=== PATIENT | female | born 1950 | race Caucasian/White ===

== ENCOUNTER → 2020-03-14 08:59 | Outpatient (BNVA) | payer MEDICARE, OTHER, SELFPAY | PROVIDERS: PCP Internal Medicine; Visit Provider Internal Medicine | DX: I48.0 Paroxysmal atrial fibrillation (principal); Z51.81 Encounter for therapeutic drug level monitoring; Z79.01 Long term (current) use of anticoagulants | CPT/HCPCS: 85610; 99211 ==

== ENCOUNTER 2020-03-27 06:57 | Outpatient (REF) | payer MEDICARE, OTHER, SELFPAY ==
[2020-03-27 11:43] LABS: Hematocrit 40.4 % (37-47); Hemoglobin 13.1 g/dl (12.0-16.0); Mean Corpuscular HGB Conc 32.4 g/dl (31.0-35.0); Mean Corpuscular Hemoglobin 28.7 pg (27.0-33.0); Mean Corpuscular Volume 88.4 fL (80-98); Mean Platelet Volume 11.5 fL (9.4-12.3); Platelet Count 249 X10*3/uL (160-400); Red Blood Count 4.57 X10*6/uL (4.20-5.50); Red Cell Distribution Width 13.6 % (11.0-16.0); White Blood Count 6.7 X10*3/uL (4.8-10.8)
[2020-03-27 12:26] LABS: Alanine Aminotransferase 13 U/L (0-31); Albumin Level 4.5 g/dL (3.5-5.0); Alkaline Phosphatase 71 U/L (39-117); Anion Gap 14 (12-20); Aspartate Amino Transferase 16 U/L (5-31); Bilirubin Total 0.7 mg/dL (0.0-1.0); Blood Urea Nitrogen 19 mg/dL (9-16); Calcium 8.8 mg/dL (8.4-10.2); Carbon Dioxide 29 mmol/L (22-29); Chloride 103 mmol/L (96-108); Estimated Glomerular Filt Rate > 60; Glucose Fasting 113 mg/dL (60-99); Iron 74 mcg/dL (30-160); Percent Iron Saturation 23 % (15-50); Potassium 4.2 mmol/l (3.3-5.1); Sodium 142 mmol/L (135-145); Total Iron Binding Capacity 316 mcg/dL (228-428); Unsaturated Iron Binding 242 ug/dL
[2020-03-27 17:46] LABS: Estimated Average Glucose 128 mg/dL; Hemoglobin A1c % 6.1 %
== END 2020-03-27 06:58 | disposition home or self-care (01) ==
LOC: HO.HMGCLDS 06:57
PROVIDERS: PCP Internal Medicine; Visit Provider Internal Medicine
DX: E78.2 Mixed hyperlipidemia (principal); I10 Essential (primary) hypertension; E11.9 Type 2 diabetes mellitus without complications
CPT/HCPCS: 36415; 80053; 83036; 83540; 85027

== ENCOUNTER → 2020-04-02 09:51 | Outpatient (BNVA) | payer MEDICARE, OTHER, SELFPAY | PROVIDERS: PCP Internal Medicine; Visit Provider Internal Medicine Cardiovascular Disease | DX: I25.10 Atherosclerotic heart disease of native coronary artery without angina pectoris (principal); I48.0 Paroxysmal atrial fibrillation; I10 Essential (primary) hypertension; Z79.01 Long term (current) use of anticoagulants; Z79.02 Long term (current) use of antithrombotics/antiplatelets; Z79.899 Other long term (current) drug therapy; Z95.5 Presence of coronary angioplasty implant and graft | CPT/HCPCS: 99212 ==

== ENCOUNTER → 2020-04-11 08:51 | Outpatient (BNVA) | payer MEDICARE, SELFPAY | PROVIDERS: PCP Internal Medicine; Visit Provider Internal Medicine | DX: I48.0 Paroxysmal atrial fibrillation (principal); Z51.81 Encounter for therapeutic drug level monitoring; Z79.01 Long term (current) use of anticoagulants | CPT/HCPCS: 85610; 99211 ==

== ENCOUNTER → 2020-05-09 08:58 | Outpatient (BNVA) | payer MEDICARE, SELFPAY | PROVIDERS: PCP Internal Medicine; Visit Provider Internal Medicine | DX: I48.0 Paroxysmal atrial fibrillation (principal); Z51.81 Encounter for therapeutic drug level monitoring; Z79.01 Long term (current) use of anticoagulants | CPT/HCPCS: 85610; 99211 ==

== ENCOUNTER → 2020-06-13 08:51 | Outpatient (BNVA) | payer OTHER, SELFPAY | PROVIDERS: PCP Internal Medicine; Visit Provider Internal Medicine | DX: I48.0 Paroxysmal atrial fibrillation (principal); Z51.81 Encounter for therapeutic drug level monitoring; Z79.01 Long term (current) use of anticoagulants | CPT/HCPCS: 85610; 99211 ==

== ENCOUNTER 2020-07-05 09:08 | Outpatient (REF) | payer MEDICARE, OTHER, SELFPAY | END 2020-07-05 09:09 | disposition home or self-care (01) | LOC: HO.LAB 09:08 | PROVIDERS: Visit Provider Internal Medicine | DX: Z20.822 Contact with and (suspected) exposure to COVID-19 (principal) | CPT/HCPCS: 36415; C9803; U0003; U0005 ==

== ENCOUNTER → 2020-07-11 08:48 | Outpatient (BNVA) | payer OTHER, SELFPAY | PROVIDERS: PCP Internal Medicine; Visit Provider Internal Medicine | DX: I48.0 Paroxysmal atrial fibrillation (principal); Z51.81 Encounter for therapeutic drug level monitoring; Z79.01 Long term (current) use of anticoagulants | CPT/HCPCS: 85610; 99211 ==

== ENCOUNTER → 2020-08-08 08:47 | Outpatient (BNVA) | payer MEDICARE, SELFPAY | PROVIDERS: PCP Internal Medicine; Visit Provider Internal Medicine | DX: I48.0 Paroxysmal atrial fibrillation (principal); Z51.81 Encounter for therapeutic drug level monitoring; Z79.01 Long term (current) use of anticoagulants | CPT/HCPCS: 85610; 99211 ==

== ENCOUNTER → 2020-08-29 08:54 | Outpatient (BNVA) | payer MEDICARE, SELFPAY | PROVIDERS: PCP Internal Medicine; Visit Provider Internal Medicine | DX: I48.0 Paroxysmal atrial fibrillation (principal); Z79.01 Long term (current) use of anticoagulants; Z51.81 Encounter for therapeutic drug level monitoring | CPT/HCPCS: 85610; 99211 ==

== ENCOUNTER → 2020-09-26 09:06 | Outpatient (BNVA) | payer MEDICARE, SELFPAY | PROVIDERS: PCP Internal Medicine; Visit Provider Internal Medicine | DX: I48.0 Paroxysmal atrial fibrillation (principal); Z79.01 Long term (current) use of anticoagulants; Z51.81 Encounter for therapeutic drug level monitoring | CPT/HCPCS: 85610; 99211 ==

== ENCOUNTER → 2020-10-08 08:45 | Outpatient (BNVA) | payer MEDICARE, SELFPAY | PROVIDERS: PCP Internal Medicine; Referring Provider Internal Medicine; Visit Provider Internal Medicine Cardiovascular Disease | DX: I25.10 Atherosclerotic heart disease of native coronary artery without angina pectoris (principal); I48.0 Paroxysmal atrial fibrillation; I10 Essential (primary) hypertension; R06.00 Dyspnea, unspecified | CPT/HCPCS: 93005; 99212 ==

== ENCOUNTER → 2020-10-10 08:55 | Outpatient (BNVA) | payer MEDICARE, SELFPAY | PROVIDERS: PCP Internal Medicine; Visit Provider Internal Medicine | DX: I48.0 Paroxysmal atrial fibrillation (principal); Z51.81 Encounter for therapeutic drug level monitoring; Z79.01 Long term (current) use of anticoagulants | CPT/HCPCS: 85610; 99211 ==

== ENCOUNTER → 2020-11-07 08:48 | Outpatient (BNVA) | payer MEDICARE, SELFPAY | PROVIDERS: PCP Internal Medicine; Visit Provider Internal Medicine | DX: I48.0 Paroxysmal atrial fibrillation (principal); Z51.81 Encounter for therapeutic drug level monitoring; Z79.01 Long term (current) use of anticoagulants | CPT/HCPCS: 85610; 99211 ==

== ENCOUNTER 2020-12-02 07:46 | Outpatient (REF) | payer MEDICARE, SELFPAY ==
[2020-12-02 11:46] LABS: Estimated Average Glucose 126 mg/dL
[2020-12-02 11:50] LABS: Alanine Aminotransferase 16 U/L (0-31); Albumin Level 4.2 g/dL (3.5-5.0); Alkaline Phosphatase 75 U/L (39-117); Anion Gap 13 (12-20); Aspartate Amino Transferase 15 U/L (5-31); Bilirubin Total 0.6 mg/dL (0.0-1.0); Blood Urea Nitrogen 20 mg/dL (9-16); Calcium 9.3 mg/dL (8.4-10.2); Carbon Dioxide 26 mmol/L (22-29); Chloride 107 mmol/L (96-108); Cholesterol 162 mg/dL; Estimated Glomerular Filt Rate > 60; Glucose Fasting 116 mg/dL (60-99); HDL Cholesterol 45 mg/dL; LDL Cholesterol Calculated 98 mg/dl; Potassium 4.2 mmol/L (3.3-5.1); Sodium 142 mmol/L (135-145); Total Protein 6.6 g/dL (6.5-8.0); Triglycerides 98 mg/dL
[2020-12-02 12:00] LABS: Creatinine Urine 101.86 mg/dL; Microalbum/Creatinine Ratio Ur 9.8 ug/mg cr
== END 2020-12-02 07:47 | disposition home or self-care (01) ==
LOC: HO.HMGCLDS 07:46
PROVIDERS: PCP Internal Medicine; Visit Provider Internal Medicine
DX: I10 Essential (primary) hypertension (principal); E11.9 Type 2 diabetes mellitus without complications; I25.10 Atherosclerotic heart disease of native coronary artery without angina pectoris
CPT/HCPCS: 36415; 80053; 80061; 82043; 83036

== ENCOUNTER → 2020-12-05 08:55 | Outpatient (BNVA) | payer MEDICARE, SELFPAY | PROVIDERS: PCP Internal Medicine; Visit Provider Internal Medicine | DX: I48.0 Paroxysmal atrial fibrillation (principal); Z51.81 Encounter for therapeutic drug level monitoring; Z79.01 Long term (current) use of anticoagulants | CPT/HCPCS: 85610; 99211 ==

== ENCOUNTER → 2020-12-15 07:44 | Outpatient (REF) | payer MEDICARE, SELFPAY ==
--- NOTE | ~2020-12-15 | NM_ITS ---
Exercise Myocardial perfusion study Indication: Atherosclerotic heart disease to evaluate for myocardial ischemia Technique: The patient was brought in for an exercise perfusion study on 12/15/2020. Patient performed exercise as per Twan protocol and was injected 25 mCi of sestamibi was given intravenously one target HR was achieved. Images were obtained using the SPECT gamma camera interlaced with the gating device. Images were obtained in supine position. Resting perfusion study was performed on 12/16/2020. Patient was administered 25 mCi of sestamibi intravenously at rest. Images were then obtained in supine position. Images obtained with and without CT attenuation. Total DLP 93 mGy-cm. Images were processed with the software and compared side to side in short axis, horizontal long axis and vertical long axis views. Findings: The stress perfusion study showed nonattenuated images show mildly reduced uptake in the apex of the LV myocardium. Attenuated corrected images also show mildly reduced uptake in the apex of the LV myocardium. The gated study shows normal LV systolic function with calculated LVEF of greater than 70 %. LV cavity is normal in size. The gated study shows normal systolic wall thickening and contraction of all segments. There is no transient ischemic dilation. Resting study shows no change in perfusion pattern compared to stress perfusion study. Gating at rest reveals normal systolic wall motion with ejection fraction at 69%. The findings are consistent with normal myocardial perfusion. NM/NM cardiolite stress test Impression: 1. Normal myocardial perfusion 2. Gated LVEF is 69% 3. Transient ischemic dilatation not present Stress EKG is nondiagnostic for ischemia
--- NOTE | 2020-12-15 07:50 | CA_ITS ---
Acquisition Time: 2020-12-15 07:57:34 Total Exercise Time: 00:06:35 Test Indications: SOB Medications: SEE CHART Protocol: DONNA Max HR: 131 BPM 87% of Pred: 150 BPM Max BP: 186/048 mmHG Max Work Load: 7.8 METS Exercise stress test with exercise 6 min 35 sec of Donna protocol, without anginal symptoms, with isolated PVC, with normotensive response to exercise, with horizontal to upsloping borderline ST inferorly and V4-V6 in setting of baseline ST abnormality, nondiagnostic for ischemia. Nuclear images pending. Test reviewed with Dr Schneider. Referred By: Aidan Oliver Overread By: CANDIDA HOLT
== END ==
LOC: HO.CARD 07:44
PROVIDERS: PCP Internal Medicine; Visit Provider Internal Medicine Cardiovascular Disease
DX: I25.10 Atherosclerotic heart disease of native coronary artery without angina pectoris (principal)
CPT/HCPCS: 78452; 93017; A9500

== ENCOUNTER → 2021-01-02 09:02 | Outpatient (BNVA) | payer MEDICARE, SELFPAY | PROVIDERS: PCP Internal Medicine; Visit Provider Internal Medicine | DX: I48.0 Paroxysmal atrial fibrillation (principal); Z51.81 Encounter for therapeutic drug level monitoring; Z79.01 Long term (current) use of anticoagulants | CPT/HCPCS: 85610; 99211 ==

== ENCOUNTER → 2021-01-29 08:39 | Outpatient (BNVA) | payer MEDICARE, SELFPAY | PROVIDERS: PCP Internal Medicine; Visit Provider Internal Medicine | DX: I48.0 Paroxysmal atrial fibrillation (principal); Z51.81 Encounter for therapeutic drug level monitoring; Z79.01 Long term (current) use of anticoagulants | CPT/HCPCS: 85610; 99211 ==

== ENCOUNTER → 2021-02-11 14:22 | Outpatient (BNVA) | payer MEDICARE, SELFPAY | PROVIDERS: PCP Internal Medicine; Referring Provider Internal Medicine; Visit Provider Internal Medicine Cardiovascular Disease | DX: I48.0 Paroxysmal atrial fibrillation (principal); I25.10 Atherosclerotic heart disease of native coronary artery without angina pectoris; R06.00 Dyspnea, unspecified | CPT/HCPCS: 99212 ==

== ENCOUNTER → 2021-02-27 08:52 | Outpatient (BNVA) | payer MEDICARE, SELFPAY | PROVIDERS: PCP Internal Medicine; Visit Provider Internal Medicine | DX: I48.0 Paroxysmal atrial fibrillation (principal); Z51.81 Encounter for therapeutic drug level monitoring; Z79.01 Long term (current) use of anticoagulants | CPT/HCPCS: 85610; 99211 ==

== ENCOUNTER → 2021-03-27 09:05 | Outpatient (BNVA) | payer MEDICARE, SELFPAY | PROVIDERS: PCP Internal Medicine; Visit Provider Internal Medicine | DX: I48.0 Paroxysmal atrial fibrillation (principal); Z51.81 Encounter for therapeutic drug level monitoring; Z79.01 Long term (current) use of anticoagulants | CPT/HCPCS: 85610; 99211 ==

== ENCOUNTER → 2021-04-24 09:16 | Outpatient (BNVA) | payer MEDICARE, SELFPAY | PROVIDERS: PCP Internal Medicine; Visit Provider Internal Medicine | DX: I48.0 Paroxysmal atrial fibrillation (principal); Z51.81 Encounter for therapeutic drug level monitoring; Z79.01 Long term (current) use of anticoagulants | CPT/HCPCS: 85610; 99211 ==

== ENCOUNTER → 2021-05-08 08:45 | Outpatient (BNVA) | payer MEDICARE, SELFPAY | PROVIDERS: PCP Internal Medicine; Visit Provider Internal Medicine | DX: I48.0 Paroxysmal atrial fibrillation (principal); Z51.81 Encounter for therapeutic drug level monitoring; Z79.01 Long term (current) use of anticoagulants | CPT/HCPCS: 85610; 99211 ==

== ENCOUNTER → 2021-06-05 08:54 | Outpatient (BNVA) | payer MEDICARE, SELFPAY | PROVIDERS: PCP Internal Medicine; Visit Provider Internal Medicine | DX: I48.0 Paroxysmal atrial fibrillation (principal); Z51.81 Encounter for therapeutic drug level monitoring; Z79.01 Long term (current) use of anticoagulants | CPT/HCPCS: 85610; 99211 ==

== ENCOUNTER 2021-06-09 07:13 | Outpatient (REF) | payer MEDICARE, SELFPAY ==
[2021-06-09 11:36] LABS: Estimated Average Glucose 120 mg/dL; Hemoglobin A1c % 5.8 %
[2021-06-09 12:06] LABS: Alanine Aminotransferase 19 U/L (0-31); Albumin Level 4.2 g/dL (3.5-5.0); Alkaline Phosphatase 82 U/L (39-117); Anion Gap 13 (12-20); Aspartate Amino Transferase 19 U/L (5-31); Bilirubin Total 0.6 mg/dL (0.0-1.0); Blood Urea Nitrogen 26 mg/dL (9-16); Calcium 9.4 mg/dL (8.4-10.2); Carbon Dioxide 25 mmol/L (22-29); Chloride 108 mmol/L (96-108); Cholesterol 161 mg/dL; Estimated Glomerular Filt Rate 57; Glucose Fasting 109 mg/dL (60-99); HDL Cholesterol 40 mg/dL; LDL Cholesterol Calculated 101 mg/dl; Potassium 4.1 mmol/L (3.3-5.1); Sodium 142 mmol/L (135-145); Total Protein 6.9 g/dL (6.5-8.0); Triglycerides 100 mg/dL
[2021-06-09 12:10] LABS: TSH reflex Free T4 1.32 uIU/mL (0.32-4.0)
[2021-06-09 12:17] LABS: Creatinine Urine 71.78 mg/dL; Microalbum/Creatinine Ratio Ur 13.9 ug/mg cr
== END 2021-06-09 07:14 | disposition home or self-care (01) ==
LOC: HO.HMGCLDS 07:13
PROVIDERS: Visit Provider Internal Medicine
DX: E11.9 Type 2 diabetes mellitus without complications (principal); E78.5 Hyperlipidemia, unspecified; I48.0 Paroxysmal atrial fibrillation
CPT/HCPCS: 36415; 80053; 80061; 82043; 83036; 84443

== ENCOUNTER → 2021-06-15 08:56 | Outpatient (BNVA) | payer MEDICARE, SELFPAY | PROVIDERS: PCP Internal Medicine; Referring Provider Internal Medicine; Visit Provider Internal Medicine Cardiovascular Disease | DX: I48.0 Paroxysmal atrial fibrillation (principal); I25.10 Atherosclerotic heart disease of native coronary artery without angina pectoris; R06.00 Dyspnea, unspecified | CPT/HCPCS: 99212 ==

== ENCOUNTER → 2021-07-03 08:56 | Outpatient (BNVA) | payer MEDICARE, SELFPAY | PROVIDERS: PCP Internal Medicine; Visit Provider Internal Medicine | DX: I48.0 Paroxysmal atrial fibrillation (principal); Z51.81 Encounter for therapeutic drug level monitoring; Z79.01 Long term (current) use of anticoagulants | CPT/HCPCS: 85610; 99211 ==

== ENCOUNTER → 2021-07-17 08:51 | Outpatient (BNVA) | payer MEDICARE, SELFPAY | PROVIDERS: PCP Internal Medicine; Visit Provider Internal Medicine | DX: I48.0 Paroxysmal atrial fibrillation (principal); Z51.81 Encounter for therapeutic drug level monitoring; Z79.01 Long term (current) use of anticoagulants | CPT/HCPCS: 85610; 99211 ==

== ENCOUNTER → 2021-07-30 10:44 | Outpatient (BNVA) | payer MEDICARE, SELFPAY | PROVIDERS: PCP Internal Medicine; Referring Provider Internal Medicine; Visit Provider Internal Medicine Cardiovascular Disease | DX: Z01.810 Encounter for preprocedural cardiovascular examination (principal); I25.10 Atherosclerotic heart disease of native coronary artery without angina pectoris; I48.0 Paroxysmal atrial fibrillation | CPT/HCPCS: 93005; 99212 ==

== ENCOUNTER → 2021-07-31 08:48 | Outpatient (BNVA) | payer MEDICARE, SELFPAY | PROVIDERS: PCP Internal Medicine; Visit Provider Internal Medicine | DX: I48.0 Paroxysmal atrial fibrillation (principal); Z51.81 Encounter for therapeutic drug level monitoring; Z79.01 Long term (current) use of anticoagulants | CPT/HCPCS: 85610; 99211 ==

== ENCOUNTER → 2021-08-04 09:20 | Outpatient (BNVA) | payer MEDICARE, SELFPAY | PROVIDERS: PCP Internal Medicine; Visit Provider Internal Medicine | DX: I48.0 Paroxysmal atrial fibrillation (principal); Z51.81 Encounter for therapeutic drug level monitoring; Z79.01 Long term (current) use of anticoagulants | CPT/HCPCS: 85610; 99211 ==

== ENCOUNTER → 2021-08-19 10:00 | Outpatient (REF) | payer MEDICARE, SELFPAY ==
--- NOTE | 2021-08-19 10:30 | CA_ITS ---
Transthoracic Echocardiogram Patient (Last, First, Middle): Sudha Ratliff, Gender: Female Date of : 1950 Age: 70 Procedure Date: 08/19/2021 Procedure Type: Transthoracic Echocardiogram Location: OP Height: 154.94 cm Weight: 63.5 kg BSA: 1.62 m2 Heart Rate: bpm BP: 125 / 80 mmHg Folder And Notcher: YR/TO Referring MD: Sowmya Mo MD Symptoms: MAL NEOPLASM L BREAST C50.412 Z17.1 Z51.11CARDIO TOXIC CHEMO Study Quality: Good Conclusions: - Normal left ventricular size, thickness, and systolic function. The visually estimated ejection fraction is between 55-60%. - E/E prime ratio is between 8 and 15 consistent with indeterminate filling pressures. - Normal right ventricular cavity size and systolic function. - The left atrium is mildly dilated. The right atrium is normal in size. Findings Left Ventricle Normal left ventricular size, thickness, and systolic function. The visually estimated ejection fraction is between 55-60%. There is no evidence of regional wall motion abnormalities. Abnormal diastolic function is noted. Spectral Doppler is indicative of an impaired relaxation filling pattern. E/E prime ratio is between 8 and 15 consistent with indeterminate filling pressures. Right Ventricle Normal right ventricular cavity size and systolic function. Atria The left atrium is mildly dilated. The right atrium is normal in size. Aortic Valve There is a normal trileaflet aortic valve. There is mild aortic valve stenosis. There is no aortic valve regurgitation. Mitral Valve The mitral valve appears normal. There is trace mitral valve regurgitation. There is no mitral valve stenosis. Pulmonic Valve Normal pulmonic valve structure and function. There is trace pulmonic valve regurgitation. Tricuspid Valve Normal tricuspid valve structure. There is trace tricuspid valve regurgitation. Normal right atrial pressure. There is no evidence of pulmonary hypertension. Great Vessels All visible segments of the aorta are normal in size. The visualized portions of the pulmonary artery and branches are normal. Venous The inferior vena cava is normal in size and collapses greater than 50% with inspiration. Pericardium/Pleural There is no evidence of pericardial effusion. Prior Study Comparison No significant change compared to prior study dated: 06/16/2019. Measurements 2D Linear Measurements IVSd: 0.81 0.6-0.9/0.6-1.0 cm LVIDd: 4.06 3.9-5.3/4.2-5.9 cm LVIDd Index: 2.51 2.4-3.2/2.2-3.1 cm/m2 LVIDs: 3.03 2.0-3.6 cm LVPWd: 0.97 0.7-1.1 cm LA Diam: 3.60 2.7-3.8/3.0-4.0 cm LAIDs Index: 2.22 1.5-2.3 cm/m2 LV Mass: 137.01 67-162/88-224 g LV Mass Index: 84.58 43-95/49-115 g/m2 LVOT Diam: 2.10 3.0+(-)1.3 cm 2D Systolic Function EF 4C: 56.10 >55% EF 2C: 62.90 >55% EF BiP: 60.10 >55% Mitral Valve MV Pk E: 0.60 MV PK A: 0.90 MV Decel Time: 248.00 E/A: 0.70 E'Lateral: 5.55 E'Medial: 5.11 E/E' Med: 11.70 E/E' Lat: 10.70 PHT: 73.00 MVA PHT: 3.01 Decel Keith: 2.40 Aortic Valve AoV Pk Db: 1.46 AoV Mn Db: 1.01 AoV VTI: 0.32 AoV Pk Grad: 9.00 Aov Mn Grad: 5.00 GIUSEPPE Cont.VTI: 2.37 LVOT LVOT Pk Db: 1.02 LVOT Mn Db: 0.64 LVOT VTI: 0.22 LVOT Pk Grad: 4.00 LVOT Mn Grad: 2.00 LVOT Diam: 2.10 LVOT Area: 3.46 Diastolic Function MV Pk E: 0.60 MV Pk A: 0.90 E/A: 0.70 E'Medial: 5.11 E/E' Med: 11.70 E' Laterial: 5.55 E/E' Lat: 10.70 Right Ventricle TAPSE (mm): 25.20 TVS' Db: 17.30 Tricuspid Valve TR Pk Db: 1.86 TR Pk Grad: 14.00 RA Press: 3.00 RVSP: 17.00 Great Vessels Aorta Sinus of Valsalva: 3.11 2.0-3.[address] Ridge: 2.57 1.7-3.4 cm Ao Asc: 2.90 2.1-3.4 cm Ao Arch: 2.60 Updated in Other Vendor System with Status of Final Aidan Oliver MD electronically signed on 08/20/2021 10:03:03 AM with status of Final
== END ==
LOC: HO.CARD 10:00
PROVIDERS: Visit Provider Internal Medicine
DX: I48.0 Paroxysmal atrial fibrillation (principal); I25.10 Atherosclerotic heart disease of native coronary artery without angina pectoris; Z51.81 Encounter for therapeutic drug level monitoring; Z79.01 Long term (current) use of anticoagulants; C50.412 Malignant neoplasm of upper-outer quadrant of left female breast; Z17.1 Estrogen receptor negative status [ER-]
CPT/HCPCS: 85610; 93306; 99211

== ENCOUNTER 2021-08-24 07:02 | Outpatient (REF) | payer MEDICARE, SELFPAY ==
[2021-08-24 12:25] LABS: Alanine Aminotransferase 30 U/L (0-31); Albumin Level 4.3 g/dL (3.5-5.0); Alkaline Phosphatase 74 U/L (39-117); Anion Gap 12 (12-20); Aspartate Amino Transferase 27 U/L (5-31); Bilirubin Total 0.7 mg/dL (0.0-1.0); Blood Urea Nitrogen 16 mg/dL (9-16); Calcium 9.1 mg/dL (8.4-10.2); Carbon Dioxide 26 mmol/L (22-29); Chloride 106 mmol/L (96-108); Cholesterol 121 mg/dL; Estimated Glomerular Filt Rate > 60; Glucose Fasting 121 mg/dL (60-99); HDL Cholesterol 30 mg/dL; LDL Cholesterol Calculated 63 mg/dl; Potassium 3.9 mmol/L (3.3-5.1); Sodium 140 mmol/L (135-145); Total Protein 6.7 g/dL (6.5-8.0); Triglycerides 144 mg/dL
[2021-08-24 12:39] LABS: Creatinine Urine 88.01 mg/dL; Microalbum/Creatinine Ratio Ur 80.6 ug/mg cr
[2021-08-24 12:58] LABS: Estimated Average Glucose 134 mg/dL; Hemoglobin A1c % 6.3 %
== END 2021-08-24 07:03 | disposition home or self-care (01) ==
LOC: HO.HMGCLDS 07:02
PROVIDERS: Visit Provider Internal Medicine
DX: E11.9 Type 2 diabetes mellitus without complications (principal); I10 Essential (primary) hypertension; I25.10 Atherosclerotic heart disease of native coronary artery without angina pectoris; E78.5 Hyperlipidemia, unspecified
CPT/HCPCS: 36415; 80053; 80061; 82043; 83036

== ENCOUNTER → 2021-08-26 08:59 | Outpatient (BNVA) | payer MEDICARE, SELFPAY | PROVIDERS: PCP Internal Medicine; Visit Provider Internal Medicine | DX: I48.0 Paroxysmal atrial fibrillation (principal); Z51.81 Encounter for therapeutic drug level monitoring; Z79.01 Long term (current) use of anticoagulants | CPT/HCPCS: 85610; 99211 ==

== ENCOUNTER → 2021-09-02 09:08 | Outpatient (BNVA) | payer MEDICARE, SELFPAY | PROVIDERS: PCP Internal Medicine; Visit Provider Internal Medicine | DX: I48.0 Paroxysmal atrial fibrillation (principal); Z79.01 Long term (current) use of anticoagulants; Z51.81 Encounter for therapeutic drug level monitoring | CPT/HCPCS: 85610; 99212 ==

== ENCOUNTER → 2021-09-09 09:14 | Outpatient (BNVA) | payer MEDICARE, SELFPAY | PROVIDERS: PCP Internal Medicine; Visit Provider Internal Medicine | DX: I48.0 Paroxysmal atrial fibrillation (principal); Z79.01 Long term (current) use of anticoagulants; Z51.81 Encounter for therapeutic drug level monitoring | CPT/HCPCS: 85610; 99211 ==

== ENCOUNTER → 2021-09-16 09:37 | Outpatient (BNVA) | payer MEDICARE, SELFPAY | PROVIDERS: PCP Internal Medicine; Visit Provider Internal Medicine | DX: I48.0 Paroxysmal atrial fibrillation (principal); Z79.01 Long term (current) use of anticoagulants; Z51.81 Encounter for therapeutic drug level monitoring | CPT/HCPCS: 85610; 99211 ==

== ENCOUNTER → 2021-09-23 10:07 | Outpatient (BNVA) | payer MEDICARE, SELFPAY | PROVIDERS: PCP Internal Medicine; Visit Provider Internal Medicine | DX: I48.0 Paroxysmal atrial fibrillation (principal); Z79.01 Long term (current) use of anticoagulants; Z51.81 Encounter for therapeutic drug level monitoring | CPT/HCPCS: 85610; 99211 ==

== ENCOUNTER → 2021-09-29 10:08 | Outpatient (BNVA) | payer MEDICARE, SELFPAY | PROVIDERS: PCP Internal Medicine; Visit Provider Internal Medicine | DX: I48.0 Paroxysmal atrial fibrillation (principal); Z79.01 Long term (current) use of anticoagulants; Z51.81 Encounter for therapeutic drug level monitoring | CPT/HCPCS: 85610; 99211 ==

== ENCOUNTER → 2021-10-06 10:12 | Outpatient (BNVA) | payer MEDICARE, SELFPAY | PROVIDERS: PCP Internal Medicine; Visit Provider Internal Medicine | DX: I48.0 Paroxysmal atrial fibrillation (principal); Z79.01 Long term (current) use of anticoagulants; Z51.81 Encounter for therapeutic drug level monitoring | CPT/HCPCS: 85610; 99211 ==

== ENCOUNTER → 2021-10-13 09:50 | Outpatient (BNVA) | payer MEDICARE, SELFPAY | PROVIDERS: PCP Internal Medicine; Visit Provider Internal Medicine | DX: I48.0 Paroxysmal atrial fibrillation (principal); Z79.01 Long term (current) use of anticoagulants; Z51.81 Encounter for therapeutic drug level monitoring | CPT/HCPCS: 85610; 99211 ==

== ENCOUNTER → 2021-10-21 10:29 | Outpatient (BNVA) | payer MEDICARE, SELFPAY | PROVIDERS: PCP Internal Medicine; Visit Provider Internal Medicine | DX: I48.0 Paroxysmal atrial fibrillation (principal); Z79.01 Long term (current) use of anticoagulants; Z51.81 Encounter for therapeutic drug level monitoring | CPT/HCPCS: 85610; 99211 ==

== ENCOUNTER → 2021-11-04 10:23 | Outpatient (BNVA) | payer MEDICARE, SELFPAY | PROVIDERS: PCP Internal Medicine; Visit Provider Internal Medicine | DX: I48.0 Paroxysmal atrial fibrillation (principal); Z79.01 Long term (current) use of anticoagulants; Z51.81 Encounter for therapeutic drug level monitoring | CPT/HCPCS: 85610; 99211 ==

== ENCOUNTER → 2021-11-11 10:37 | Outpatient (BNVA) | payer MEDICARE, SELFPAY | PROVIDERS: PCP Internal Medicine; Visit Provider Internal Medicine | DX: I48.0 Paroxysmal atrial fibrillation (principal); Z79.01 Long term (current) use of anticoagulants; Z51.81 Encounter for therapeutic drug level monitoring | CPT/HCPCS: 85610; 99211 ==

== ENCOUNTER → 2021-11-25 10:00 | Outpatient (BNVA) | payer MEDICARE, SELFPAY | PROVIDERS: PCP Internal Medicine; Visit Provider Internal Medicine | DX: I48.0 Paroxysmal atrial fibrillation (principal); Z79.01 Long term (current) use of anticoagulants; Z51.81 Encounter for therapeutic drug level monitoring | CPT/HCPCS: 85610; 99211 ==

== ENCOUNTER 2021-11-26 07:03 | Outpatient (REF) | payer MEDICARE, SELFPAY ==
[2021-11-26 11:34] LABS: Hematocrit 29.9 % (37.0-47.0); Hemoglobin 9.9 g/dl (12.0-16.0); Mean Corpuscular HGB Conc 33.1 g/dl (31.0-35.0); Mean Corpuscular Hemoglobin 31.6 pg (27.0-33.0); Mean Corpuscular Volume 95.5 fL (80.0-98.0); Mean Platelet Volume 10.6 fL (9.4-12.3); Platelet Count 286 X10*3/uL (160-400); Red Blood Count 3.13 X10*6/uL (4.20-5.50); Red Cell Distribution Width 18.6 % (11.0-16.0); White Blood Count 4.6 X10*3/uL (4.8-10.8)
[2021-11-26 11:40] LABS: Estimated Average Glucose 117 mg/dL; Hemoglobin A1c % 5.7 %
[2021-11-26 12:09] LABS: Alanine Aminotransferase 33 U/L (0-31); Albumin Level 4.2 g/dL (3.5-5.0); Alkaline Phosphatase 88 U/L (39-117); Anion Gap 13 (12-20); Aspartate Amino Transferase 21 U/L (5-31); Bilirubin Total 0.7 mg/dL (0.0-1.0); Blood Urea Nitrogen 20 mg/dL (9-16); Calcium 9.2 mg/dL (8.4-10.2); Carbon Dioxide 28 mmol/L (22-29); Chloride 104 mmol/L (96-108); Cholesterol 132 mg/dL; Estimated Glomerular Filt Rate > 60; Glucose Fasting 127 mg/dL (60-99); HDL Cholesterol 40 mg/dL; LDL Cholesterol Calculated 72 mg/dl; Potassium 3.9 mmol/L (3.3-5.1); Sodium 141 mmol/L (135-145); Total Protein 6.3 g/dL (6.5-8.0); Triglycerides 104 mg/dL
== END 2021-11-26 07:04 | disposition home or self-care (01) ==
LOC: HO.HMGCLDS 07:03
PROVIDERS: Visit Provider Internal Medicine
DX: E11.9 Type 2 diabetes mellitus without complications (principal); E78.5 Hyperlipidemia, unspecified; I10 Essential (primary) hypertension; I25.10 Atherosclerotic heart disease of native coronary artery without angina pectoris; I48.0 Paroxysmal atrial fibrillation; C50.919 Malignant neoplasm of unspecified site of unspecified female breast
CPT/HCPCS: 36415; 80053; 80061; 82043; 83036; 85027

== ENCOUNTER 2021-12-01 11:37 | Outpatient (REF) | payer MEDICARE, SELFPAY ==
[2021-12-01 13:47] LABS: Immature Retic Fraction 22.8 % (3.0-15.9); Retic HGB Equivalent 35.1 pg (30.0-35.0); Reticulocyte Percent 3.4 % (0.5-1.8)
[2021-12-01 14:06] LABS: Iron 56 mcg/dL (30-160); Percent Iron Saturation 17 % (15-50); Total Iron Binding Capacity 327 mcg/dL (228-428); Unsaturated Iron Binding 271 ug/dL
[2021-12-01 14:39] LABS: Folate 9.8 ng/mL (> or = 4.0); Vitamin B12 386 pg/mL (200-900)
== END 2021-12-01 11:38 | disposition home or self-care (01) ==
LOC: HO.HMGCLDS 11:37
PROVIDERS: Visit Provider Internal Medicine
DX: D64.9 Anemia, unspecified (principal); K92.1 Melena; E11.9 Type 2 diabetes mellitus without complications; I25.10 Atherosclerotic heart disease of native coronary artery without angina pectoris
CPT/HCPCS: 36415; 82607; 82746; 83540; 85045

== ENCOUNTER → 2021-12-03 09:40 | Outpatient (BNVA) | payer MEDICARE, SELFPAY | PROVIDERS: PCP Internal Medicine; Referring Provider Internal Medicine; Visit Provider Internal Medicine Cardiovascular Disease | DX: I25.10 Atherosclerotic heart disease of native coronary artery without angina pectoris (principal); I48.0 Paroxysmal atrial fibrillation; D64.9 Anemia, unspecified; K92.1 Melena; Z79.01 Long term (current) use of anticoagulants; Z79.02 Long term (current) use of antithrombotics/antiplatelets | CPT/HCPCS: 99212 ==

== ENCOUNTER 2021-12-08 07:02 | Outpatient (REF) | payer MEDICARE, SELFPAY ==
[2021-12-08 11:16] LABS: MANUAL DIFF FLAG NO
[2021-12-08 11:33] LABS: Basophils Percent Auto 0.6 % (0-2); Eosinophils Absolute Auto 0.1 X10*3/uL (0.0-0.4); Eosinophils Percent Auto 0.8 % (0-4); Hematocrit 30.5 % (37.0-47.0); Imm Gran Abs Auto 0.01 X10*3/uL (0.00-0.03); Imm Gran Pct Auto 0.2 % (0.0-0.4); Lymphocytes Absolute Auto 2.4 X10*3/uL (1.2-4.9); Lymphocytes Percent Auto 36.5 % (20-40); Mean Corpuscular HGB Conc 32.8 g/dl (31.0-35.0); Mean Corpuscular Hemoglobin 31.5 pg (27.0-33.0); Mean Corpuscular Volume 96.2 fL (80.0-98.0); Monocytes Absolute Auto 0.6 X10*3/uL (0.1-1.2); Monocytes Percent Auto 9.6 % (2-11); Neutrophils Absolute Auto 3.4 x10*3/uL (2.0-8.3); Neutrophils Percent Auto 52.3 % (45-73); Platelet Count 257 X10*3/uL (160-400); Red Blood Count 3.17 X10*6/uL (4.20-5.50); Red Cell Distribution Width 16.2 % (11.0-16.0); White Blood Count 6.4 X10*3/uL (4.8-10.8)
== END 2021-12-08 07:03 | disposition home or self-care (01) ==
LOC: HO.HMGCLDS 07:02
PROVIDERS: Visit Provider Internal Medicine
DX: D64.9 Anemia, unspecified (principal); K92.1 Melena
CPT/HCPCS: 36415; 85025

== ENCOUNTER 2022-01-05 11:49 | Outpatient (REF) | payer MEDICARE, SELFPAY ==
[2022-01-05 13:55] LABS: MANUAL DIFF FLAG NO
[2022-01-05 14:01] LABS: Basophils Absolute Auto 0.1 X10*3/uL (0.0-0.2); Basophils Percent Auto 0.7 % (0-2); Eosinophils Absolute Auto 0.1 X10*3/uL (0.0-0.4); Eosinophils Percent Auto 1.6 % (0-4); Hemoglobin 11.4 g/dl (12.0-16.0); Imm Gran Abs Auto 0.04 X10*3/uL (0.00-0.03); Imm Gran Pct Auto 0.6 % (0.0-0.4); Lymphocytes Absolute Auto 1.9 X10*3/uL (1.2-4.9); Lymphocytes Percent Auto 27.1 % (20-40); Mean Corpuscular HGB Conc 32.6 g/dl (31.0-35.0); Mean Corpuscular Hemoglobin 31.5 pg (27.0-33.0); Mean Corpuscular Volume 96.7 fL (80.0-98.0); Mean Platelet Volume 11.1 fL (9.4-12.3); Monocytes Absolute Auto 0.8 X10*3/uL (0.1-1.2); Monocytes Percent Auto 11.2 % (2-11); Neutrophils Absolute Auto 4.1 x10*3/uL (2.0-8.3); Neutrophils Percent Auto 58.8 % (45-73); Platelet Count 226 X10*3/uL (160-400); Red Blood Count 3.62 X10*6/uL (4.20-5.50)
[2022-01-05 14:28] LABS: Alanine Aminotransferase 87 U/L (0-31); Albumin Level 4.3 g/dL (3.5-5.0); Alkaline Phosphatase 99 U/L (39-117); Anion Gap 14 (12-20); Aspartate Amino Transferase 55 U/L (5-31); Bilirubin Total 0.3 mg/dL (0.0-1.0); Blood Urea Nitrogen 22 mg/dL (9-16); Calcium 9.1 mg/dL (8.4-10.2); Carbon Dioxide 28 mmol/L (22-29); Chloride 105 mmol/L (96-108); Estimated Glomerular Filt Rate > 60; Glucose Random 107 mg/dL (60-115); Iron 54 mcg/dL (30-160); Magnesium 1.7 mg/dL (1.6-2.6); Percent Iron Saturation 16 % (15-50); Potassium 4.2 mmol/L (3.3-5.1); Sodium 143 mmol/L (135-145); Total Iron Binding Capacity 341 mcg/dL (228-428); Total Protein 6.8 g/dL (6.5-8.0); Unsaturated Iron Binding 287 ug/dL
== END 2022-01-05 11:50 | disposition home or self-care (01) ==
LOC: HO.HMGCLDS 11:49
PROVIDERS: PCP Internal Medicine; Visit Provider Internal Medicine
DX: I48.0 Paroxysmal atrial fibrillation (principal); K92.1 Melena; D64.9 Anemia, unspecified
CPT/HCPCS: 36415; 80053; 83540; 83735; 85025

== ENCOUNTER 2022-01-06 13:53 | Outpatient (REF) | payer MEDICARE, SELFPAY ==
[2022-01-06 15:07] LABS: Ferritin 81 ng/mL (10-250)
== END 2022-01-06 13:54 | disposition home or self-care (01) ==
LOC: HO.LAB 13:53
PROVIDERS: PCP Internal Medicine; Visit Provider Nurse Practitioner
DX: D64.9 Anemia, unspecified (principal); Z98.890 Other specified postprocedural states
CPT/HCPCS: 36415; 82728; 99202; 99212

== ENCOUNTER 2022-01-07 11:04 | Outpatient (REF) | payer MEDICARE, SELFPAY ==
[2022-01-07 12:06] LABS: FIT1 NEGATIVE (NEGATIVE)
[2022-01-07 12:07] LABS: FIT Int Ctl YES
== END 2022-01-07 11:05 | disposition home or self-care (01) ==
LOC: HO.LNP 11:04
PROVIDERS: Visit Provider Nurse Practitioner
DX: D64.9 Anemia, unspecified (principal)
CPT/HCPCS: 82274

== ENCOUNTER 2022-03-05 06:54 | Outpatient (REF) | payer MEDICARE, SELFPAY ==
[2022-03-05 11:25] LABS: MANUAL DIFF FLAG NO
[2022-03-05 11:42] LABS: Basophils Percent Auto 0.3 % (0-2); Eosinophils Absolute Auto 0.1 X10*3/uL (0.0-0.4); Eosinophils Percent Auto 1.2 % (0-4); Hematocrit 36.8 % (37.0-47.0); Hemoglobin 12.2 g/dl (12.0-16.0); Imm Gran Abs Auto 0.01 X10*3/uL (0.00-0.03); Imm Gran Pct Auto 0.2 % (0.0-0.4); Lymphocytes Absolute Auto 1.7 X10*3/uL (1.2-4.9); Lymphocytes Percent Auto 29.9 % (20-40); Mean Corpuscular HGB Conc 33.2 g/dl (31.0-35.0); Mean Corpuscular Hemoglobin 30.2 pg (27.0-33.0); Mean Corpuscular Volume 91.1 fL (80.0-98.0); Mean Platelet Volume 11.4 fL (9.4-12.3); Monocytes Absolute Auto 0.7 X10*3/uL (0.1-1.2); Monocytes Percent Auto 11.4 % (2-11); Neutrophils Absolute Auto 3.3 x10*3/uL (2.0-8.3); Platelet Count 182 X10*3/uL (160-400); Red Blood Count 4.04 X10*6/uL (4.20-5.50); Red Cell Distribution Width 12.5 % (11.0-16.0); White Blood Count 5.8 X10*3/uL (4.8-10.8)
[2022-03-05 11:51] LABS: Estimated Average Glucose 126 mg/dL
[2022-03-05 12:00] LABS: Alanine Aminotransferase 27 U/L (0-31); Albumin Level 4.4 g/dL (3.5-5.0); Alkaline Phosphatase 84 U/L (39-117); Anion Gap 17 (12-20); Aspartate Amino Transferase 31 U/L (5-31); Bilirubin Total 0.8 mg/dL (0.0-1.0); Blood Urea Nitrogen 23 mg/dL (9-16); Calcium 9.9 mg/dL (8.4-10.2); Carbon Dioxide 26 mmol/L (22-29); Chloride 101 mmol/L (96-108); Cholesterol 132 mg/dL; Estimated Glomerular Filt Rate 58; Glucose Fasting 129 mg/dL (60-99); HDL Cholesterol 45 mg/dL; Iron 51 mcg/dL (30-160); LDL Cholesterol Calculated 70 mg/dl; Percent Iron Saturation 17 % (15-50); Potassium 4.7 mmol/L (3.3-5.1); Sodium 139 mmol/L (135-145); Total Iron Binding Capacity 305 mcg/dL (228-428); Total Protein 6.7 g/dL (6.5-8.0); Triglycerides 89 mg/dL; Unsaturated Iron Binding 254 ug/dL
[2022-03-05 12:20] LABS: Creatinine Urine 328.23 mg/dL
== END 2022-03-05 06:55 | disposition home or self-care (01) ==
LOC: HO.HMGCLDS 06:54
PROVIDERS: PCP Internal Medicine; Visit Provider Internal Medicine
DX: E11.9 Type 2 diabetes mellitus without complications (principal); E78.5 Hyperlipidemia, unspecified; I10 Essential (primary) hypertension; I48.0 Paroxysmal atrial fibrillation
CPT/HCPCS: 36415; 80053; 80061; 82043; 83036; 83540; 85025

== ENCOUNTER → 2022-04-29 13:32 | Outpatient (BNVA) | payer MEDICARE, SELFPAY | PROVIDERS: PCP Internal Medicine; Referring Provider Internal Medicine; Visit Provider Nurse Practitioner Family | DX: I25.10 Atherosclerotic heart disease of native coronary artery without angina pectoris (principal); I48.0 Paroxysmal atrial fibrillation; K92.1 Melena; D64.9 Anemia, unspecified; I25.2 Old myocardial infarction; Z79.02 Long term (current) use of antithrombotics/antiplatelets; Z79.899 Other long term (current) drug therapy | CPT/HCPCS: 99212 ==

== ENCOUNTER 2022-08-13 06:52 | Outpatient (REF) | payer MEDICARE, SELFPAY ==
[2022-08-13 11:13] LABS: MANUAL DIFF FLAG NO
[2022-08-13 11:21] LABS: Basophils Percent Auto 0.6 % (0-2); Eosinophils Absolute Auto 0.1 X10*3/uL (0.0-0.4); Eosinophils Percent Auto 1.5 % (0-4); Hematocrit 35.4 % (37.0-47.0); Hemoglobin 11.6 g/dl (12.0-16.0); Lymphocytes Absolute Auto 1.7 X10*3/uL (1.2-4.9); Lymphocytes Percent Auto 35.2 % (20-40); Mean Corpuscular HGB Conc 32.8 g/dl (31.0-35.0); Mean Corpuscular Hemoglobin 30.1 pg (27.0-33.0); Mean Corpuscular Volume 91.7 fL (80.0-98.0); Monocytes Absolute Auto 0.6 X10*3/uL (0.1-1.2); Monocytes Percent Auto 12.9 % (2-11); Neutrophils Absolute Auto 2.4 x10*3/uL (2.0-8.3); Neutrophils Percent Auto 49.8 % (45-73); Platelet Count 201 X10*3/uL (160-400); Red Blood Count 3.86 X10*6/uL (4.20-5.50); Red Cell Distribution Width 13.3 % (11.0-16.0); White Blood Count 4.7 X10*3/uL (4.8-10.8)
[2022-08-13 11:34] LABS: Estimated Average Glucose 123 mg/dL; Hemoglobin A1c % 5.9 %
[2022-08-13 11:45] LABS: Alanine Aminotransferase 33 U/L (0-31); Alkaline Phosphatase 73 U/L (39-117); Anion Gap 12 (12-20); Aspartate Amino Transferase 25 U/L (5-31); Bilirubin Total 0.8 mg/dL (0.0-1.0); Blood Urea Nitrogen 24 mg/dL (9-16); Calcium 8.9 mg/dL (8.4-10.2); Carbon Dioxide 27 mmol/L (22-29); Chloride 108 mmol/L (96-108); Estimated Glomerular Filt Rate > 60; Glucose Fasting 121 mg/dL (60-99); Iron 68 mcg/dL (30-160); Percent Iron Saturation 25 % (15-50); Potassium 4.2 mmol/L (3.3-5.1); Sodium 143 mmol/L (135-145); Total Iron Binding Capacity 273 mcg/dL (228-428); Total Protein 6.1 g/dL (6.5-8.0); Unsaturated Iron Binding 205 ug/dL
== END 2022-08-13 06:53 | disposition home or self-care (01) ==
LOC: HO.HMGCLDS 06:52
PROVIDERS: PCP Internal Medicine; Visit Provider Internal Medicine
DX: D64.9 Anemia, unspecified (principal); E78.5 Hyperlipidemia, unspecified; I25.10 Atherosclerotic heart disease of native coronary artery without angina pectoris; I10 Essential (primary) hypertension
CPT/HCPCS: 36415; 80053; 83036; 83540; 85025

== ENCOUNTER → 2022-11-11 13:25 | Outpatient (BNVA) | payer MEDICARE, MEDICAID, SELFPAY | PROVIDERS: PCP Internal Medicine; Referring Provider Internal Medicine; Visit Provider Nurse Practitioner Family | DX: I10 Essential (primary) hypertension (principal); I25.10 Atherosclerotic heart disease of native coronary artery without angina pectoris; I48.0 Paroxysmal atrial fibrillation; E11.9 Type 2 diabetes mellitus without complications; E78.5 Hyperlipidemia, unspecified; Z79.01 Long term (current) use of anticoagulants | CPT/HCPCS: 93005; 99212 ==

== ENCOUNTER 2023-04-02 09:20 | Outpatient (REF) | payer MEDICARE, MEDICAID, SELFPAY ==
[2023-04-02 12:02] LABS: MANUAL DIFF FLAG NO
[2023-04-02 12:11] LABS: Basophils Percent Auto 0.6 % (0-2); Eosinophils Absolute Auto 0.1 X10*3/uL (0.0-0.4); Eosinophils Percent Auto 1.2 % (0-4); Hematocrit 33.1 % (37.0-47.0); Hemoglobin 10.9 g/dl (12.0-16.0); Lymphocytes Absolute Auto 1.7 X10*3/uL (1.2-4.9); Lymphocytes Percent Auto 34.2 % (20-40); Mean Corpuscular HGB Conc 32.9 g/dl (31.0-35.0); Mean Corpuscular Hemoglobin 28.9 pg (27.0-33.0); Mean Corpuscular Volume 87.8 fL (80.0-98.0); Mean Platelet Volume 11.5 fL (9.4-12.3); Monocytes Absolute Auto 0.5 X10*3/uL (0.1-1.2); Monocytes Percent Auto 10.5 % (2-11); Neutrophils Absolute Auto 2.6 x10*3/uL (2.0-8.3); Neutrophils Percent Auto 53.5 % (45-73); Platelet Count 207 X10*3/uL (160-400); Red Blood Count 3.77 X10*6/uL (4.20-5.50); Red Cell Distribution Width 13.1 % (11.0-16.0); White Blood Count 4.9 X10*3/uL (4.8-10.8)
[2023-04-02 12:20] LABS: Estimated Average Glucose 128 mg/dL; Hemoglobin A1c % 6.1 % (<6.0)
[2023-04-02 12:40] LABS: Alanine Aminotransferase 14 U/L (0-31); Albumin Level 4.1 g/dL (3.5-5.0); Alkaline Phosphatase 92 U/L (39-117); Anion Gap 14 (12-20); Aspartate Amino Transferase 20 U/L (5-31); Bilirubin Total 0.6 mg/dL (0.0-1.0); Blood Urea Nitrogen 14 mg/dL (9-16); Calcium 9.4 mg/dL (8.4-10.2); Carbon Dioxide 24 mmol/L (22-29); Chloride 107 mmol/L (96-108); Cholesterol 96 mg/dL (<200); Estimated Glomerular Filt Rate > 60; Glucose Fasting 110 mg/dL (60-99); HDL Cholesterol 30 mg/dL (>40); Iron 42 mcg/dL (30-160); LDL Cholesterol Calculated 48 mg/dL (<100); Percent Iron Saturation 15 % (15-50); Sodium 141 mmol/L (135-145); Total Iron Binding Capacity 275 mcg/dL (228-428); Triglycerides 91 mg/dL (<150); Unsaturated Iron Binding 233 ug/dL
[2023-04-02 12:44] LABS: TSH reflex Free T4 1.19 uIU/mL (0.32-4.0)
[2023-04-02 13:31] LABS: Microalbum/Creatinine Ratio Ur 5.9 ug/mg cr (<30)
== END 2023-04-02 09:21 | disposition home or self-care (01) ==
LOC: HO.HMGCLDS 09:20
PROVIDERS: PCP Internal Medicine; Visit Provider Internal Medicine
DX: D64.9 Anemia, unspecified (principal); N28.89 Other specified disorders of kidney and ureter; C50.919 Malignant neoplasm of unspecified site of unspecified female breast; I48.0 Paroxysmal atrial fibrillation; E78.5 Hyperlipidemia, unspecified; I25.10 Atherosclerotic heart disease of native coronary artery without angina pectoris; I10 Essential (primary) hypertension; E11.9 Type 2 diabetes mellitus without complications
CPT/HCPCS: 36415; 80053; 80061; 82043; 82570; 83036; 83540; 84443; 85025

== ENCOUNTER 2023-04-05 09:12 | Outpatient (AMB) | payer MEDICARE, MEDICAID, SELFPAY ==
--- NOTE | 2023-04-05 09:19 | A.OFFPC_ITS ---
Vital Signs 04/05/23 09:23 Height 5 ft 2.5 in Weight 160 lb BMI 28.8 BP 120/58 L Blood Pressure Location Rt brachial Position Sitting Pulse 71 Pulse Source Pulse Oximeter Pulse Oximetry (%) 94 Oxygen Delivery Method Room Air Intake Visit Reasons: Annual PE Allergies No Known Allergies [No Known Allergies*] Allergy (Verified 04/05/23 09:24) Medication List - Last Reconciled 04/05/23 by Traci Salinas MD amlodipine 5 mg PO DAILY apixaban (Eliquis) 5 mg PO BID atorvastatin 80 mg PO DAILY blood sugar diagnostic ([employer] Verio test strips) 1 strip miscellaneous DAILY blood-glucose meter ([employer] Verio Meter) As directed calcium carbonate 1 tab PO DAILY cholecalciferol (vitamin D3) 25 mcg PO DAILY clopidogrel 75 mg PO DAILY duloxetine 60 mg PO DAILY ezetimibe (Zetia) 10 mg PO DAILY ferrous sulfate 325 mg PO DAILY isosorbide mononitrate ER 30 mg PO DAILY lancets ([employer] Delica Lancets) Test blood sugar once a day losartan 50 mg PO DAILY metformin 500 mg PO BID metoprolol tartrate 25 mg PO DAILY vitamins A,C,C-gczr-hgbkps 4,296 mcg-226 mg-90 mg (PreserVision AREDS) 1 cap PO BID Tobacco use date assessed: 08/24/22 HPI Annual PE HPI Details Pt presents for PE. [facility] Medical History (Updated 04/05/23 @ 10:18 by Traci Salinas MD) Renal mass, left Lobular breast cancer Abnormal mammogram of left breast Annual physical exam Paroxysmal A-fib Hyperlipidemia CAD (coronary artery disease) HTN (hypertension) Diabetes Surgical History History of section History of breast biopsy H/O colonoscopy Family History Father No problems noted. Mother No problems noted. Son No problems noted. Social History Housing: House Alcohol intake: never Patient Tobacco Use Status: Never used Tobacco e-Cigarette/Vaping Use: Never Used Current occupational status: retired Cognitive needs: No Hearing needs: No Vision needs: Yes Questionnaire Thrive Questionnaire Date Thrive assessed: 08/24/22 SARAH-7 AMB Questionnaire SARAH-7 Date SARAH - 7 assessed: 08/24/22 Source: Developed by Drs. Stuart Hu, Gloria Patel, Juan A Maya and colleagues, with an educational meka from [employer]. Review of Systems Const All systems reviewed & are unremarkable except as noted in HPI and below Reports no additional complaints Eyes Reports no additional complaints ENT Reports no additional complaints Card Reports no additional complaints Resp Reports no additional complaints GI Reports no additional complaints Reports no additional complaints Physical exam (Primary Care) Vital Signs: Last Vital Signs Pulse 71 04/05/23 09:23 BP 120/58 L 04/05/23 09:23 Pulse Ox 94 04/05/23 09:23 Oxygen Delivery Method Room Air 04/05/23 09:23 BMI result Body Mass Index 28.8 Tobacco/Smoking Status: Tobacco use Status Tobacco use date assessed 08/24/22 04/05/23 09:19 Patient Tobacco Use Status Never used Tobacco 04/05/23 09:19 e-Cigarette/Vaping Use Never Used 04/05/23 09:19 Thrive Assessment: Date of Thrive Assessment Date Thrive assessed 08/24/22 04/05/23 09:19 Const General: no acute distress HENMT Head: Yes normal to inspection Ears: hearing grossly normal bilaterally Face and sinus: Yes normal facial exam Mouth: Normal oral and palatal mucosa present Neck Neck: Yes no lymphadenopathy and Yes supple Resp Effort & Inspection: normal respiratory effort Auscultation: clear to auscultation bilaterally Cardio Rhythm: regular rhythm Heart sounds: S1 normal heart sound present and S2 normal heart sound present GI Inspection: Yes normal to inspection Palpation (GI): Soft to palpation Percussion: Yes normal to percussion Auscultation: normal bowel sounds Assessment and Plan Assessment & Plan (1) Neuropathy: Comment: post chemo, Lyrica and duloxetine not effective Code(s): G62.9 - Polyneuropathy, unspecified (2) Cataract: Code(s): H26.9 - Unspecified cataract (3) Lobular breast cancer: Comment: L breast intraductal , s/p lumpectomy and CHEMO 08/11 f/u Dr. Wilson at [facility] Code(s): C50.919 - Malignant neoplasm of unspecified site of unspecified female breast Plan: f/u with oncology (4) Renal mass, left: Comment: 2 CM 08/11 on renal US and CT, Code(s): N28.89 - Other specified disorders of kidney and ureter (5) Paroxysmal A-fib: Comment: GI bleed on Coumadin Code(s): I48.0 - Paroxysmal atrial fibrillation Plan: cont Eliquis (6) CAD (coronary artery disease): Comment: s/p DEYANIRA to cx for NSTEMI 05/2019 cardiac cath RCA chronic occluded. Code(s): I25.10 - Atherosclerotic heart disease of [place] coronary artery without angina pectoris Plan: cont meds, f/u with Cardiology (7) HTN (hypertension): Comment: BP goal less than 130/80 Code(s): I10 - Essential (primary) hypertension (8) Diabetes: Comment: A1C <7 Code(s): E11.9 - Type 2 diabetes mellitus without complications Plan: A1C 6.1, ADA diet, exercise, cont meds Orders: Orders Vitamin B12 and Folate Today G62.9 - Polyneuropathy, unspecified Referrals Ophthalmology Referral H26.9 - Unspecified cataract Coding Level of Care Code Est Pt Prev Care >65y(64428) Diagnoses Neuropathy G62.9 Cataract H26.9 Lobular breast cancer C50.919 Renal mass, left N28.89 Paroxysmal A-fib I48.0 CAD (coronary artery disease) I25.10 HTN (hypertension) I10 Diabetes E11.9
[2023-04-05 09:23] VITALS: BP 120/58; PULSE 71; O2SAT 94; BMI 28.8
== END 2023-04-05 10:20 | disposition home or self-care (01) ==
PROVIDERS: PCP Internal Medicine; Visit Provider Internal Medicine
DX: Z00.00 Encounter for general adult medical examination without abnormal findings (principal); I48.0 Paroxysmal atrial fibrillation; C50.919 Malignant neoplasm of unspecified site of unspecified female breast; E11.42 Type 2 diabetes mellitus with diabetic polyneuropathy; H26.9 Unspecified cataract; G62.9 Polyneuropathy, unspecified; N28.89 Other specified disorders of kidney and ureter; I25.10 Atherosclerotic heart disease of native coronary artery without angina pectoris; I10 Essential (primary) hypertension
CPT/HCPCS: 99397

== ENCOUNTER 2023-05-10 11:49 | Outpatient (AMB) | payer MEDICARE, MEDICAID, SELFPAY ==
--- NOTE | 2023-05-10 11:56 | MHC.PC.OV ---
Vital Signs 05/10/23 11:59 Height 5 ft 2.5 in Weight 161 lb BMI 29.0 BP 120/68 Blood Pressure Location Rt brachial Position Sitting Pulse 69 Pulse Source Pulse Oximeter Pulse Oximetry (%) 96 Oxygen Delivery Method Room Air Intake Visit Reasons: 05/30/23 Cataracts On Both Eyes Intake Note: Pt is here today for a pre op visit. Pt is having cataract surgery on 05/30/23. Allergies No Known Allergies [No Known Allergies*] Allergy (Verified 05/10/23 12:04) Medication List - Last Reconciled 05/10/23 by Traci Salinas MD amlodipine 5 mg PO DAILY apixaban (Eliquis) 5 mg PO BID atorvastatin 80 mg PO DAILY blood sugar diagnostic ([employer] Verio test strips) 1 strip miscellaneous DAILY blood-glucose meter ([employer] Verio Meter) As directed calcium carbonate 1 tab PO DAILY cholecalciferol (vitamin D3) 25 mcg PO DAILY clopidogrel 75 mg PO DAILY ezetimibe (Zetia) 10 mg PO DAILY ferrous sulfate 325 mg PO DAILY isosorbide mononitrate ER 30 mg PO DAILY lancets ([employer] Delica Lancets) Test blood sugar once a day losartan 50 mg PO DAILY metformin 500 mg PO BID metoprolol tartrate 25 mg PO DAILY vitamins A,C,X-uipv-vsfsgc 4,296 mcg-226 mg-90 mg (PreserVision AREDS) 1 cap PO BID Tobacco use date assessed: 05/10/23 Dental Screening Dental Screen Date: 05/10/23 Did you have a dental visit in the last 12 months?: Yes Did you have a dental problem in the last 6 months where you did not have access to dental care?: No Was dental information given to patient?: Patient has dentist HPI 05/30/23 Cataracts On Both Eyes HPI Details Pt presents for preop cataract surgery. HTN, DM 2, hyperlipid, stable on meds. Pt has been on duo anticoagulation therapy with Eliquis and Clopidogrel for history of AFib and CAD status post DEYANIRA in 2019. [facility] Medical History Renal mass, left Lobular breast cancer Abnormal mammogram of left breast Annual physical exam Paroxysmal A-fib Hyperlipidemia CAD (coronary artery disease) HTN (hypertension) Diabetes Surgical History History of section History of breast biopsy H/O colonoscopy Family History Father No problems noted. Mother No problems noted. Son No problems noted. Social History Housing: House Alcohol intake: never Patient Tobacco Use Status: Never used Tobacco e-Cigarette/Vaping Use: Never Used Current occupational status: retired Cognitive needs: No Hearing needs: No Vision needs: Yes Questionnaire Thrive Questionnaire Date Thrive assessed: 08/24/22 SARAH-7 AMB Questionnaire SARAH-7 Date SARAH - 7 assessed: 08/24/22 Source: Developed by Drs. Stuart Hu, Gloria Patel, Juan A Maya and colleagues, with an educational meka from [employer]. Review of Systems Const All systems reviewed & are unremarkable except as noted in HPI and below Reports no additional complaints Eyes Reports no additional complaints ENT Reports no additional complaints Card Reports no additional complaints Resp Reports no additional complaints GI Reports no additional complaints Reports no additional complaints Physical exam (Primary Care) Vital Signs: Last Vital Signs Pulse 69 05/10/23 11:59 BP 120/68 05/10/23 11:59 Pulse Ox 96 05/10/23 11:59 Oxygen Delivery Method Room Air 05/10/23 11:59 BMI result Body Mass Index 29.0 Tobacco/Smoking Status: Tobacco use Status Tobacco use date assessed 05/10/23 05/10/23 12:04 Patient Tobacco Use Status Never used Tobacco 05/10/23 12:04 e-Cigarette/Vaping Use Never Used 05/10/23 11:56 Thrive Assessment: Date of Thrive Assessment Date Thrive assessed 08/24/22 05/10/23 11:56 Const General: no acute distress HENMT Face and sinus: Yes normal facial exam Resp Effort & Inspection: normal respiratory effort Auscultation: clear to auscultation bilaterally Cardio Rhythm: regular rhythm Heart sounds: S1 normal heart sound present and S2 normal heart sound present GI Palpation (GI): Soft to palpation Extrem General: Yes no clubbing, cyanosis or edema Assessment and Plan Assessment & Plan (1) Diabetes: Comment: A1C <7 Code(s): E11.9 - Type 2 diabetes mellitus without complications Plan: A1c is 6.1, continue ADA diet regular exercise and med for (2) HTN (hypertension): Comment: BP goal less than 130/80 Code(s): I10 - Essential (primary) hypertension Plan: Continue current medications (3) CAD (coronary artery disease): Comment: s/p DEYANIRA to cx for NSTEMI 05/2019 cardiac cath RCA chronic occluded. Code(s): I25.10 - Atherosclerotic heart disease of [place] coronary artery without angina pectoris Plan: Patient with discussed with scabbler the need to continue taking clopidogrel before the cataract surgery. (4) Hyperlipidemia: Code(s): E78.5 - Hyperlipidemia, unspecified Plan: Continue statin (5) Anemia: Comment: On iron supplement Code(s): D64.9 - Anemia, unspecified Plan: Monitor CBC and iron count check B12 level (6) Cataract: Code(s): H26.9 - Unspecified cataract Plan: Patient is medically cleared for cataract surgery Orders: Orders Comprehensive [place]. Panel Fast 2 Months E11.9 - Type 2 diabetes mellitus without complications, E78.5 - Hyperlipidemia, unspecified, I10 - Essential (primary) hypertension, I25.10 - Atherosclerotic heart disease of [place] coronary artery without angina pectoris Hemoglobin A1c 2 Months E11.9 - Type 2 diabetes mellitus without complications, E78.5 - Hyperlipidemia, unspecified, I10 - Essential (primary) hypertension, I25.10 - Atherosclerotic heart disease of [place] coronary artery without angina pectoris Complete Blood Count Auto Diff 2 Months E11.9 - Type 2 diabetes mellitus without complications, E78.5 - Hyperlipidemia, unspecified, I10 - Essential (primary) hypertension, I25.10 - Atherosclerotic heart disease of [place] coronary artery without angina pectoris IRON PROFILE 2 Months E11.9 - Type 2 diabetes mellitus without complications, E78.5 - Hyperlipidemia, unspecified, I10 - Essential (primary) hypertension, I25.10 - Atherosclerotic heart disease of [place] coronary artery without angina pectoris Lipid Panel 2 Months E11.9 - Type 2 diabetes mellitus without complications, E78.5 - Hyperlipidemia, unspecified, I10 - Essential (primary) hypertension, I25.10 - Atherosclerotic heart disease of [place] coronary artery without angina pectoris Microalbumin, Random (w Creat) 2 Months E11.9 - Type 2 diabetes mellitus without complications, E78.5 - Hyperlipidemia, unspecified, I10 - Essential (primary) hypertension, I25.10 - Atherosclerotic heart disease of [place] coronary artery without angina pectoris Vitamin B12 and Folate 2 Months D64.9 - Anemia, unspecified, E53.8 - Deficiency of other specified B group vitamins Coding Level of Care Code Est Pt Level 4 (70245) Diagnoses Diabetes E11.9 HTN (hypertension) I10 CAD (coronary artery disease) I25.10 Hyperlipidemia E78.5 Anemia D64.9 Cataract H26.9
[2023-05-10 11:59] VITALS: BP 120/68; PULSE 69; O2SAT 96; BMI 29.0
== END 2023-05-10 13:07 | disposition home or self-care (01) ==
PROVIDERS: PCP Internal Medicine; Visit Provider Internal Medicine
DX: E11.36 Type 2 diabetes mellitus with diabetic cataract (principal); I10 Essential (primary) hypertension; I25.10 Atherosclerotic heart disease of native coronary artery without angina pectoris; E78.5 Hyperlipidemia, unspecified; D64.9 Anemia, unspecified; H26.9 Unspecified cataract
CPT/HCPCS: 99214

== ENCOUNTER 2023-05-18 09:30 | Outpatient (AMB) | payer MEDICARE, MEDICAID, SELFPAY ==
--- NOTE | 2023-05-18 09:36 | MHC.OFFVIS ---
Intake Vital Signs 05/18/23 09:37 Height 5 ft 2.5 in Weight 156 lb 8.451 oz BMI 28.2 BP 130/60 Blood Pressure Location Lt brachial Position Sitting Pulse 75 Pulse Source Pulse Oximeter Intake Visit Reasons: 6 MON FUP PER DC Intake Note: 6 mnth f/up per DC/ pt its feeling fine Executive Candidate Developer Required: Yes Executive Candidate Developer Name: Braulio Han/delroy Accompanied by: Self / Same As Patient Allergies No Known Allergies [No Known Allergies*] Allergy (Verified 05/10/23 12:04) HPI HPI Comments History of Present Illness Details 72-year-old female here for follow-up. She has history of coronary disease with previous NSTEMI for which she underwent left circumflex artery PCI. At that time she has a right coronary artery [employer]. Subsequent to that she developed atrial fibrillation and was started on Coumadin. She has been maintained on Plavix and Coumadin. Unfortunately she got diagnosed with left breast cancer and is undergoing chemotherapy. She is noted to be anemic and was also complaining of bright red blood per rectum specially when she is wiping at the end of passing stools. Story sounds more like hemorrhoids but due to these issues she was brought to the office for further assessment. Denying any chest pain or shortness of breath. Obviously quite stressed and depressed due to breast cancer and ongoing chemotherapy. 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 05/18/2023: She returns for follow-up. She is following with Oncology and has been stable. She is in need of cataract surgery. Denying any other symptoms currently. [facility] Medical History Renal mass, left Lobular breast cancer Abnormal mammogram of left breast Annual physical exam Paroxysmal A-fib Hyperlipidemia CAD (coronary artery disease) HTN (hypertension) Diabetes Surgical History History of section History of breast biopsy H/O colonoscopy Family History Father No problems noted. Mother No problems noted. Son No problems noted. Social History Housing: House Alcohol intake: never Patient Tobacco Use Status: Never used Tobacco e-Cigarette/Vaping Use: Never Used Current occupational status: retired Cognitive needs: No Hearing needs: No Vision needs: Yes Review of Systems Const Reports chills, Reports fatigue, Reports fever(s), Reports frequent falls, Reports weakness, Reports weight gain and Reports weight loss ENT Reports dizziness Card Reports chest pain, Reports leg edema, Reports lightheadedness, Reports palpitations, Reports dyspnea and Reports dyspnea on exertion Resp Reports cough, Reports dyspnea and Reports dyspnea on exertion GI Reports hematochezia Musc Reports abnormal gait, Reports muscle weakness, Reports numbness, Reports radiating pain into limb and Reports tingling Neuro Reports abnormal gait, Reports dizziness, Reports frequent falls, Reports numbness, Reports tingling and Reports weakness Endo Reports fatigue and Reports palpitations Physical Exam Vital Signs: BMI result Body Mass Index 28.2 GENERAL APPEARANCE: in no acute distress, pleasant. NECK: no carotid bruit, no jugular venous distention. SKIN: no suspicious lesions, warm and dry. HEART: no murmurs, regular rate and rhythm. LUNGS: clear to auscultation bilaterally. ABDOMEN: soft, nontender. EXTREMITIES: no edema. PERIPHERAL PULSES: equal. NEUROLOGIC: No gross deficits, AAO X 3 Assessment & Plan Assessment & Plan (1) CAD (coronary artery disease): Comment: s/p DEYANIRA to cx for NSTEMI 05/2019 cardiac cath RCA chronic occluded. Code(s): I25.10 - Atherosclerotic heart disease of [place] coronary artery without angina pectoris (2) Paroxysmal A-fib: Comment: GI bleed on Coumadin Code(s): I48.0 - Paroxysmal atrial fibrillation (3) Preop cardiovascular exam: Code(s): Z01.810 - Encounter for preprocedural cardiovascular examination Plan 72-year-old here for follow-up. Blood pressure control is good. Denying any anginal symptoms. On Plavix and Eliquis currently for known history of coronary disease and paroxysmal atrial fibrillation. She is in need of cataract surgery. She is low risk for surgery and can proceed. She can hold Eliquis and Plavix as per ophthalmology recommendations. Thank you for allowing me to participate in the care of your patient. Please feel free to contact me if you have any questions. Coding Level of Care Code Est Pt Level 3 (59408) Diagnoses CAD (coronary artery disease) I25.10 Paroxysmal A-fib I48.0 Preop cardiovascular exam Z01.810
[2023-05-18 09:37] VITALS: BP 130/60; PULSE 75; BMI 28.2
== END 2023-05-18 10:01 | disposition home or self-care (01) ==
PROVIDERS: PCP Internal Medicine; Visit Provider Internal Medicine Cardiovascular Disease
DX: I25.10 Atherosclerotic heart disease of native coronary artery without angina pectoris (principal); I48.0 Paroxysmal atrial fibrillation; Z01.810 Encounter for preprocedural cardiovascular examination
CPT/HCPCS: 99213

== ENCOUNTER → 2023-05-18 09:30 | Outpatient (BNVA) | payer MEDICARE, MEDICAID, SELFPAY | PROVIDERS: PCP Internal Medicine; Visit Provider Internal Medicine Cardiovascular Disease | DX: Z01.810 Encounter for preprocedural cardiovascular examination (principal); I25.10 Atherosclerotic heart disease of native coronary artery without angina pectoris; I48.0 Paroxysmal atrial fibrillation | CPT/HCPCS: 99212 ==

== ENCOUNTER 2023-07-16 07:55 | Outpatient (REF) | payer MEDICARE, MEDICAID, SELFPAY ==
[2023-07-16 11:06] LABS: MANUAL DIFF FLAG NO
[2023-07-16 11:11] LABS: Basophils Percent Auto 0.5 % (0-2); Eosinophils Absolute Auto 0.1 X10*3/uL (0.0-0.4); Eosinophils Percent Auto 2.3 % (0-4); Hematocrit 36.6 % (37.0-47.0); Hemoglobin 12.4 g/dl (12.0-16.0); Imm Gran Abs Auto 0.01 X10*3/uL (0.00-0.03); Imm Gran Pct Auto 0.2 % (0.0-0.4); Mean Corpuscular HGB Conc 33.9 g/dl (31.0-35.0); Mean Corpuscular Hemoglobin 29.2 pg (27.0-33.0); Mean Corpuscular Volume 86.3 fL (80.0-98.0); Mean Platelet Volume 11.4 fL (9.4-12.3); Monocytes Absolute Auto 0.6 X10*3/uL (0.1-1.2); Monocytes Percent Auto 9.8 % (2-11); Neutrophils Absolute Auto 3.3 x10*3/uL (2.0-8.3); Neutrophils Percent Auto 54.2 % (45-73); Platelet Count 238 X10*3/uL (160-400); Red Blood Count 4.24 X10*6/uL (4.20-5.50); Red Cell Distribution Width 14.6 % (11.0-16.0); White Blood Count 6.2 X10*3/uL (4.8-10.8)
[2023-07-16 11:23] LABS: Estimated Average Glucose 123 mg/dL; Hemoglobin A1c % 5.9 % (<6.0)
[2023-07-16 11:24] LABS: Alanine Aminotransferase 18 U/L (0-31); Albumin Level 4.2 g/dL (3.5-5.0); Alkaline Phosphatase 80 U/L (39-117); Anion Gap 14 (12-20); Aspartate Amino Transferase 20 U/L (5-31); Bilirubin Total 0.6 mg/dL (0.0-1.0); Blood Urea Nitrogen 20 mg/dL (9-16); Calcium 9.7 mg/dL (8.4-10.2); Carbon Dioxide 27 mmol/L (22-29); Chloride 105 mmol/L (96-108); Cholesterol 112 mg/dL (<200); Estimated Glomerular Filt Rate > 60; Glucose Fasting 125 mg/dL (60-99); HDL Cholesterol 38 mg/dL (>40); Iron 62 mcg/dL (30-160); LDL Cholesterol Calculated 56 mg/dL (<100); Percent Iron Saturation 22 % (15-50); Potassium 4.2 mmol/L (3.3-5.1); Sodium 142 mmol/L (135-145); Total Iron Binding Capacity 277 mcg/dL (228-428); Total Protein 7.1 g/dL (6.5-8.0); Triglycerides 93 mg/dL (<150); Unsaturated Iron Binding 215 ug/dL
[2023-07-16 11:39] LABS: Creatinine Urine 109.51 mg/dL; Microalbum/Creatinine Ratio Ur 7.3 ug/mg cr (<30)
[2023-07-16 11:55] LABS: Folate 11.9 ng/mL (> or = 4.0); Vitamin B12 351 pg/mL (200-900)
== END 2023-07-16 07:56 | disposition home or self-care (01) ==
LOC: HO.HMGCLDS 07:55
PROVIDERS: PCP Internal Medicine; Visit Provider Internal Medicine
DX: I10 Essential (primary) hypertension (principal); I25.10 Atherosclerotic heart disease of native coronary artery without angina pectoris; E78.5 Hyperlipidemia, unspecified; G62.9 Polyneuropathy, unspecified; E11.9 Type 2 diabetes mellitus without complications
CPT/HCPCS: 36415; 80053; 80061; 82043; 82570; 82607; 82746; 83036; 83540; 85025

== ENCOUNTER 2023-07-21 09:21 | Outpatient (AMB) | payer MEDICARE, MEDICAID, SELFPAY ==
[2023-07-21 09:23] VITALS: BP 120/64; PULSE 73; O2SAT 96; BMI 28.3
--- NOTE | 2023-07-21 09:23 | MHC.PC.OV ---
Vital Signs 07/21/23 09:23 Height 5 ft 2.5 in Weight 157 lb BMI 28.3 BP 120/64 Blood Pressure Location Rt brachial Position Sitting Pulse 73 Pulse Source Pulse Oximeter Pulse Oximetry (%) 96 Oxygen Delivery Method Room Air Intake Visit Reasons: 2 months follow up Intake Note: Pt is here today for 2 months follow up visit. Allergies No Known Allergies [No Known Allergies*] Allergy (Verified 07/21/23 09:28) Medication List - Last Reconciled 07/21/23 by Traci Salinas MD atorvastatin 80 mg PO DAILY blood sugar diagnostic ([employer] Verio test strips) 1 strip miscellaneous DAILY blood-glucose meter ([employer]Touch Verio Meter) As directed calcium carbonate 1 tab PO DAILY cholecalciferol (vitamin D3) 25 mcg PO DAILY ezetimibe (Zetia) 10 mg PO DAILY ferrous sulfate 325 mg PO DAILY isosorbide mononitrate ER 30 mg PO DAILY lancets ([employer]Touch Delica Lancets) Test blood sugar once a day losartan 50 mg PO DAILY metformin 500 mg PO BID metoprolol tartrate 25 mg PO DAILY vitamins A,C,U-ovrh-vazeqa 4,296 mcg-226 mg-90 mg (PreserVision AREDS) 1 cap PO BID Tobacco use date assessed: 07/21/23 Fall risk assessment: No Falls in past year Last assessed Fall Risk: 07/21/23 Dental Screening Dental Screen Date: 07/21/23 Did you have a dental visit in the last 12 months?: No Did you have a dental problem in the last 6 months where you did not have access to dental care?: No Was dental information given to patient?: Patient declined HPI 2 months follow up HPI Details Patient presents for the follow-up of hypertension type 2 diabetes hyperlipidemia history of DC. she stopped taking Plavix before cataract surgery and did not restarted. She has been taking Eliquis but would like to stop if possible. Patient denies hematochezia melena and has low-grade iron deficiency anemia improved with the supplement . She was seen by GI but colonoscopy was not recommended. patient follows up with Oncology at [facility] for status post breast CA completed the treatment and renal cell carcinoma, stable mass on US in Jan. Patient is feeling well and exercises 5 times, walking. [facility] Medical History (Updated 07/21/23 @ 10:41 by Traci Salinas MD) Renal mass, left Lobular breast cancer Abnormal mammogram of left breast Annual physical exam Paroxysmal A-fib Hyperlipidemia CAD (coronary artery disease) HTN (hypertension) Diabetes Surgical History (Updated 07/21/23 @ 09:35 by Darlene Connell [facility]) Hx of cataract surgery History of section History of breast biopsy H/O colonoscopy Family History Father No problems noted. Mother No problems noted. Son No problems noted. Social History Housing: House Alcohol intake: never Patient Tobacco Use Status: Never used Tobacco e-Cigarette/Vaping Use: Never Used Current occupational status: retired Cognitive needs: No Hearing needs: No Vision needs: Yes Questionnaire PHQ-9 Over the last 2 weeks, how often have you been bothered by any of the following problems? 1. Little interest or pleasure in doing things: not at all 2. Feeling down, depressed, or hopeless: not at all 3. Trouble falling or staying asleep, or sleeping too much: not at all 4. Feeling tired or having little energy: not at all 5. Poor appetite or overeating: not at all 6. Feeling bad about yourself - or that you are a failure or have let yourself or your family down: not at all 7. Trouble concentrating on things, such as reading the newspaper or watching television: not at all 8. Moving or speaking so slowly that other people could have noticed. Or the opposite - being so fidgety or restless that you have been moving around a lot more than usual: not at all 9. Thoughts that you would be better off or of hurting yourself in some way: not at all Total score: 0 Depression Screening Interpretation: Negative Depression Screening Done: Yes Source: Developed by Drs. Stuart Hu, Gloria Patel, Juan A Maya and colleagues, with an educational meka from [employer]. Thrive Questionnaire Date Thrive assessed: 07/21/23 I am a: Patient What is your living situation today?: I have a steady place to live Within the past 12 months, did the food you bought not last and you didn't have the money to get more?: Never true Within the past 12 months, did you worry whether your food would run out before you got money to buy more?: Never true Do you have trouble paying for medicines?: No Do you have trouble getting transportation to medical appointments?: No Do you have trouble paying your heating and electricity bill?: No Do you have trouble taking care of your child, family member or friend?: No Do you have trouble with day-to-day activities such as bathing, preparing meals, shopping, managing finances, etc.?: No Are you currently unemployed and looking for a job?: No Are you interested in more education?: No Please select the resources that you would like help with: None THRIVE Score: 0 AUDIT C Alcohol Use Questionnaire (AUDIT-C) 1. How often do you have a drink containing alcohol?: Never 3. How often do you have six or more drinks on one occasion?: Never Total Score: 0 SARAH-7 AMB Questionnaire SARAH-7 Date SARAH - 7 assessed: 07/21/23 Feeling nervous, anxious, or on edge: 0 = Not at all Not being able to stop or control worryin = Not at all Worrying too much about different things: 0 = Not at all Trouble relaxin = Not at all Being so restless that it is hard to sit still: 0 = Not at all Becoming easily annoyed or irritable: 0 = Not at all Feeling afraid as if something awful might happen: 0 = Not at all Total SARAH-7 score (0-4 normal; 5-9 mild; 10-14 moderate; 15-21 severe): 0 Source: Developed by Drs. Stuart Hu, Gloria Patel, Juan A Maya and colleagues, with an educational meka from [employer]. Review of Systems Const All systems reviewed & are unremarkable except as noted in HPI and below Reports no additional complaints Eyes Reports no additional complaints ENT Reports no additional complaints Card Reports no additional complaints Resp Reports no additional complaints GI Reports no additional complaints Physical exam (Primary Care) Vital Signs: Last Vital Signs Pulse 73 07/21/23 09:23 BP 120/64 07/21/23 09:23 Pulse Ox 96 07/21/23 09:23 Oxygen Delivery Method Room Air 07/21/23 09:23 BMI result Body Mass Index 28.3 Tobacco/Smoking Status: Tobacco use Status Tobacco use date assessed 07/21/23 07/21/23 09:30 Patient Tobacco Use Status Never used Tobacco 07/21/23 09:24 e-Cigarette/Vaping Use Never Used 07/21/23 09:24 PHQ-9: PHQ-9 Score PHQ-9: Total score 0 07/21/23 09:37 Depression Screening Interpretation: Negative Thrive Assessment: Date of Thrive Assessment Date Thrive assessed 07/21/23 07/21/23 09:37 Const General: no acute distress HENMT Head: Yes normal to inspection Ears: hearing grossly normal bilaterally General nose exam: Normal external nose present Eyes General: appearance normal, both eyes and all related structures Neck Neck: Yes supple Resp Effort & Inspection: normal respiratory effort Auscultation: clear to auscultation bilaterally Cardio Rhythm: regular rhythm Heart sounds: S1 normal heart sound present and S2 normal heart sound present GI Inspection: Yes normal to inspection Palpation (GI): Soft to palpation Percussion: Yes normal to percussion Auscultation: normal bowel sounds Assessment and Plan Assessment & Plan (1) Paroxysmal A-fib: Comment: Episode of AFib post [place] Code(s): I48.0 - Paroxysmal atrial fibrillation Plan: Patient has been taking Eliquis but would like to discontinue. 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 Wilson at [facility] Code(s): C50.919 - Malignant neoplasm of unspecified site of unspecified female breast Plan: Follow-up with [facility] Oncology and breast surgeon (3) Cancer of left kidney: Comment: left lower lobe 3 cm mass , bx renal cell ca dxd 08/11, s/p cryoablation 10/12, stable on US 02/12, f/u [facility] oncology Dr. Deng Code(s): C64.2 - Malignant neoplasm of left kidney, except renal pelvis Plan: Follow-up with [facility] Oncology patient will have repeat ultrasound in January and annual surveillance alternating CT and ultrasound thereafter (4) Anemia: Comment: chronic disease?, improved iron supplement Code(s): D64.9 - Anemia, unspecified Plan: Continue iron supplement monitor CBC and iron count, check Cologuard (5) Hyperlipidemia: Code(s): E78.5 - Hyperlipidemia, unspecified Plan: Continue statin (6) CAD (coronary artery disease): Comment: s/p DEYANIRA to cx for NSTEMI 05/2019 cardiac cath RCA chronic occluded. Code(s): I25.10 - Atherosclerotic heart disease of [place] coronary artery without angina pectoris Plan: Continue current medications patient will restart 81 mg of aspirin (7) Diabetes: Comment: A1C <7 Code(s): E11.9 - Type 2 diabetes mellitus without complications Plan: A1c is 5.9, continue ADA diet metformin (8) Current use of anticoagulant therapy: Comment: Patient discontinue Plavix, still on Eliquis 07/16 Code(s): Z79.01 - alf (current) use of anticoagulants Orders: Orders ECG 5 day holter monitor Today I48.0 - Paroxysmal atrial fibrillation Comprehensive Met. Panel 3 Months C50.919 - Malignant neoplasm of unspecified site of unspecified female breast, E11.9 - Type 2 diabetes mellitus without complications, E78.5 - Hyperlipidemia, unspecified, I10 - Essential (primary) hypertension, I25.10 - Atherosclerotic heart disease of [place] coronary artery without angina pectoris Hemoglobin A1c 3 Months C50.919 - Malignant neoplasm of unspecified site of unspecified female breast, E11.9 - Type 2 diabetes mellitus without complications, E78.5 - Hyperlipidemia, unspecified, I10 - Essential (primary) hypertension, I25.10 - Atherosclerotic heart disease of [place] coronary artery without angina pectoris Complete Blood Count Auto Diff 3 Months C50.919 - Malignant neoplasm of unspecified site of unspecified female breast, E11.9 - Type 2 diabetes mellitus without complications, E78.5 - Hyperlipidemia, unspecified, I10 - Essential (primary) hypertension, I25.10 - Atherosclerotic heart disease of [place] coronary artery without angina pectoris Referrals Cologuard Test Z12.11 - Encounter for screening for malignant neoplasm of colon, Z12.12 - Encounter for screening for malignant neoplasm of rectum Medications: Discontinued clopidogrel Discontinued Reason: Doctor's Order 75 mg PO DAILY 90 tabs 3RF Coding Level of Care Code Est Pt Level 4 (67235) Diagnoses Paroxysmal A-fib I48.0 Lobular breast cancer C50.919 Cancer of left kidney C64.2 Anemia D64.9 Hyperlipidemia E78.5 CAD (coronary artery disease) I25.10 Diabetes E11.9 Current use of anticoagulant therapy Z79.01
== END 2023-07-21 10:41 | disposition home or self-care (01) ==
PROVIDERS: PCP Internal Medicine; Visit Provider Internal Medicine
DX: I48.0 Paroxysmal atrial fibrillation (principal); C50.919 Malignant neoplasm of unspecified site of unspecified female breast; C64.2 Malignant neoplasm of left kidney, except renal pelvis; E11.9 Type 2 diabetes mellitus without complications; D64.9 Anemia, unspecified; E78.5 Hyperlipidemia, unspecified; I25.10 Atherosclerotic heart disease of native coronary artery without angina pectoris; Z79.01 Long term (current) use of anticoagulants
CPT/HCPCS: 99214

== ENCOUNTER → 2023-08-01 07:45 | Outpatient (REF) | payer MEDICARE, MEDICAID, SELFPAY ==
--- NOTE | 2023-08-01 07:48 | HM_ITS ---
Conclusion: 1. Patient was monitored for total period of 5 days 2. Baseline was normal sinus rhythm with average heart of 73 beats per minute 3. Occasional PVCs noted with total burden of 1% 4. No significant pauses noted 5. No patient reported symptoms MTDD
== END ==
LOC: HO.CARD 07:45
PROVIDERS: PCP Internal Medicine; Visit Provider Internal Medicine
DX: I48.0 Paroxysmal atrial fibrillation (principal)
CPT/HCPCS: 93242

== ENCOUNTER → 2023-08-01 07:48 | Outpatient (BNV) | payer MEDICARE, MEDICAID, SELFPAY | PROVIDERS: PCP Internal Medicine; Visit Provider Internal Medicine Cardiovascular Disease | DX: I48.0 Paroxysmal atrial fibrillation (principal) | CPT/HCPCS: 93244 ==

== ENCOUNTER 2023-09-19 08:37 | Outpatient (AMB) | payer MEDICARE, MEDICAID, SELFPAY ==
--- NOTE | 2023-09-19 08:53 | A.OFFVIS_ITS ---
Vital Signs 09/19/23 08:54 Height 5 ft 2.5 in Weight 155 lb 3.287 oz BMI 27.9 BP 120/62 Blood Pressure Location Lt brachial Position Sitting Pulse 69 Pulse Source Pulse Oximeter Intake Visit Reasons: 4 month follow-up Icicle Machine Operator Required: Yes Icicle Machine Operator Name: [email or web address]/delroy Accompanied by: Self / Same As Patient Allergies No Known Allergies [No Known Allergies*] Allergy (Verified 07/21/23 09:28) Medication List - Last Reconciled 09/19/23 by Aidan Oliver MD amlodipine 5 mg PO DAILY apixaban (Eliquis) 5 mg PO BID aspirin (Adult Low Dose Aspirin) 81 mg PO DAILY atorvastatin 80 mg PO DAILY blood sugar diagnostic ([employer] Verio test strips) 1 strip miscellaneous DAILY blood-glucose meter ([employer] Verio Meter) As directed calcium carbonate 1 tab PO DAILY cholecalciferol (vitamin D3) 25 mcg PO DAILY ezetimibe (Zetia) 10 mg PO DAILY ferrous sulfate 325 mg PO DAILY isosorbide mononitrate ER 30 mg PO DAILY lancets ([employer] Delica Lancets) Test blood sugar once a day losartan 50 mg PO DAILY metformin 500 mg PO BID metoprolol tartrate 25 mg PO DAILY vitamins A,C,O-ghrp-pfvqak 4,296 mcg-226 mg-90 mg (PreserVision AREDS) 1 cap PO BID HPI Comments Details: 72-year-old female here for follow-up. She has history of coronary disease with previous NSTEMI for which she underwent left circumflex artery PCI. 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 Subsequent to that she developed atrial fibrillation and was started on Coumadin. She has been maintained on Plavix and Coumadin. Unfortunately she got diagnosed with left breast cancer and is undergoing chemotherapy. She is noted to be anemic and was also complaining of bright red blood per rectum specially when she is wiping at the end of passing stools. Story sounds more like hemorrhoids but due to these issues she was brought to the office for further assessment. Denying any chest pain or shortness of breath. Obviously quite stressed and depressed due to breast cancer and ongoing chemotherapy. [id number] acted as quality control associate. 05/18/2023: She returns for follow-up. She is following with Oncology and has been stable. She is in need of cataract surgery. Denying any other symptoms currently. 09/19/23: She is here for follow-up. She has been doing well. No chest discomfort shortness of breath. Taking medications regularly. She is stable from breast cancer viewpoint. [facility] Medical History (Updated 07/21/23 @ 10:41 by Traci Salinas MD) Renal mass, left Lobular breast cancer Abnormal mammogram of left breast Annual physical exam Paroxysmal A-fib Hyperlipidemia CAD (coronary artery disease) HTN (hypertension) Diabetes Surgical History Hx of cataract surgery History of section History of breast biopsy H/O colonoscopy Family History Father No problems noted. Mother No problems noted. Son No problems noted. Social History Housing: House Alcohol intake: never Patient Tobacco Use Status: Never used Tobacco e-Cigarette/Vaping Use: Never Used Current occupational status: retired Cognitive needs: No Hearing needs: No Vision needs: Yes Review of Systems Const Denies chills, Denies fatigue, Denies fever(s), Denies frequent falls, Denies weakness, Denies weight gain and Denies weight loss ENT Denies dizziness Card Denies chest pain, Denies leg edema, Denies lightheadedness, Denies palpitations, Denies dyspnea and Denies dyspnea on exertion Resp Denies cough, Denies dyspnea and Denies dyspnea on exertion GI Denies hematochezia Musc Denies abnormal gait, Denies muscle weakness, Denies numbness, Denies radiating pain into limb and Denies tingling Neuro Denies abnormal gait, Denies dizziness, Denies frequent falls, Denies numbness, Denies tingling and Denies weakness Endo Denies fatigue and Denies palpitations Physical Exam Vital Signs: Last Vital Signs Pulse 69 09/19/23 08:54 BP 120/62 09/19/23 08:54 BMI result Body Mass Index 27.9 GENERAL APPEARANCE: in no acute distress, pleasant. NECK: no carotid bruit, no jugular venous distention. SKIN: no suspicious lesions, warm and dry. HEART: no murmurs, regular rate and rhythm. LUNGS: clear to auscultation bilaterally. ABDOMEN: soft, nontender. EXTREMITIES: no edema. PERIPHERAL PULSES: equal. NEUROLOGIC: No gross deficits, AAO X 3 Assessment & Plan Assessment & Plan (1) Paroxysmal A-fib: Comment: Episode of AFib post PR Code(s): I48.0 - Paroxysmal atrial fibrillation Category: Medical (2) CAD (coronary artery disease): Comment: s/p DEYANIRA to cx for NSTEMI 05/2019 cardiac cath RCA chronic occluded. Code(s): I25.10 - Atherosclerotic heart disease of [place] coronary artery without angina pectoris Category: Medical Plan Very pleasant 72-year-old female who is here for follow-up. She has no chest discomfort shortness of breath. Clinically stable. She is in sinus rhythm. She is on Eliquis for anticoagulation. She is taking baby aspirin along with Eliquis. If any bleeding concerns in the future then aspirin can be stopped. Overall she has stable angina currently. She has RCA TRANSFER CONTROLLER but never had any symptoms to warrant intervention to the RCA. She had OM stenting in the setting of NSTEMI in the past. She will see us back in 6 months. Thank you for allowing me to participate in the care of your patient. Please feel free to contact me if you have any questions. Coding Level of Care Code Est Pt Level 4 (56141) Diagnoses Paroxysmal A-fib I48.0 CAD (coronary artery disease) I25.10
[2023-09-19 08:54] VITALS: BP 120/62; PULSE 69; BMI 27.9
== END 2023-09-19 09:33 | disposition home or self-care (01) ==
PROVIDERS: PCP Internal Medicine; Visit Provider Internal Medicine Cardiovascular Disease
DX: I48.0 Paroxysmal atrial fibrillation (principal); I25.10 Atherosclerotic heart disease of native coronary artery without angina pectoris
CPT/HCPCS: 99214

== ENCOUNTER → 2023-09-19 08:37 | Outpatient (BNVA) | payer MEDICARE, MEDICAID, SELFPAY | PROVIDERS: PCP Internal Medicine; Visit Provider Internal Medicine Cardiovascular Disease | DX: I25.2 Old myocardial infarction (principal); I48.0 Paroxysmal atrial fibrillation; I25.10 Atherosclerotic heart disease of native coronary artery without angina pectoris; Z79.01 Long term (current) use of anticoagulants; Z79.899 Other long term (current) drug therapy | CPT/HCPCS: 99212 ==

== ENCOUNTER 2023-09-30 06:56 | Outpatient (REF) | payer MEDICARE, MEDICAID, SELFPAY ==
[2023-09-30 10:39] LABS: MANUAL DIFF FLAG NO
[2023-09-30 10:56] LABS: Basophils Percent Auto 0.8 % (0-2); Eosinophils Absolute Auto 0.2 X10*3/uL (0.0-0.4); Eosinophils Percent Auto 4.1 % (0-4); Hematocrit 34.8 % (37.0-47.0); Hemoglobin 11.3 g/dl (12.0-16.0); Imm Gran Abs Auto 0.01 X10*3/uL (0.00-0.03); Imm Gran Pct Auto 0.2 % (0.0-0.4); Lymphocytes Absolute Auto 1.7 X10*3/uL (1.2-4.9); Lymphocytes Percent Auto 33.1 % (20-40); Mean Corpuscular HGB Conc 32.5 g/dl (31.0-35.0); Mean Corpuscular Hemoglobin 29.4 pg (27.0-33.0); Mean Corpuscular Volume 90.4 fL (80.0-98.0); Mean Platelet Volume 11.3 fL (9.4-12.3); Monocytes Absolute Auto 0.7 X10*3/uL (0.1-1.2); Monocytes Percent Auto 12.8 % (2-11); Neutrophils Absolute Auto 2.5 x10*3/uL (2.0-8.3); Platelet Count 205 X10*3/uL (160-400); Red Blood Count 3.85 X10*6/uL (4.20-5.50); Red Cell Distribution Width 14.4 % (11.0-16.0); White Blood Count 5.2 X10*3/uL (4.8-10.8)
[2023-09-30 10:59] LABS: Alanine Aminotransferase 16 U/L (0-31); Albumin Level 4.2 g/dL (3.5-5.0); Alkaline Phosphatase 85 U/L (39-117); Anion Gap 15 (12-20); Aspartate Amino Transferase 21 U/L (5-31); Bilirubin Total 0.6 mg/dL (0.0-1.0); Blood Urea Nitrogen 16 mg/dL (9-16); Calcium 9.2 mg/dL (8.4-10.2); Carbon Dioxide 24 mmol/L (22-29); Chloride 106 mmol/L (96-108); Estimated Glomerular Filt Rate > 60; Glucose Random 126 mg/dL (60-115); Potassium 4.2 mmol/L (3.3-5.1); Sodium 141 mmol/L (135-145); Total Protein 6.9 g/dL (6.5-8.0)
[2023-09-30 11:15] LABS: Estimated Average Glucose 128 mg/dL; Hemoglobin A1C 127.5752 umol/L; Hemoglobin A1c % 6.1 % (<6.0)
== END 2023-09-30 06:57 | disposition home or self-care (01) ==
LOC: HO.HMGCLDS 06:56
PROVIDERS: PCP Internal Medicine; Visit Provider Internal Medicine
DX: E78.5 Hyperlipidemia, unspecified (principal); I25.10 Atherosclerotic heart disease of native coronary artery without angina pectoris; I10 Essential (primary) hypertension; E11.9 Type 2 diabetes mellitus without complications; C50.919 Malignant neoplasm of unspecified site of unspecified female breast
CPT/HCPCS: 36415; 80053; 83036; 85025

== ENCOUNTER 2023-10-05 09:17 | Outpatient (AMB) | payer MEDICARE, MEDICAID, SELFPAY ==
[2023-10-05 09:45] VITALS: BP 122/74; PULSE 75; O2SAT 97; BMI 27.9
--- NOTE | 2023-10-05 09:45 | A.OFFPC_ITS ---
Vital Signs 10/05/23 09:45 Height 5 ft 2.5 in Weight 155 lb BMI 27.9 BP 122/74 Blood Pressure Location Lt brachial Position Sitting Pulse 75 Pulse Source Pulse Oximeter Pulse Oximetry (%) 97 Oxygen Delivery Method Room Air Intake Visit Reasons: Follow up Intake Note: Pt is here today for a follow up visit on labs. Allergies No Known Allergies [No Known Allergies*] Allergy (Verified 10/05/23 09:46) Medication List - Last Reconciled 10/05/23 by Traci Salinas MD amlodipine 5 mg PO DAILY apixaban (Eliquis) 5 mg PO BID aspirin (Adult Low Dose Aspirin) 81 mg PO DAILY atorvastatin 80 mg PO DAILY blood sugar diagnostic ([employer] Verio test strips) 1 strip miscellaneous DAILY blood-glucose meter ([employer] Verio Meter) As directed calcium carbonate 1 tab PO DAILY cholecalciferol (vitamin D3) 25 mcg PO DAILY ezetimibe (Zetia) 10 mg PO DAILY ferrous sulfate 325 mg PO DAILY isosorbide mononitrate ER 30 mg PO DAILY lancets ([employer] Delica Lancets) Test blood sugar once a day losartan 50 mg PO DAILY metformin 500 mg PO BID metoprolol tartrate 25 mg PO DAILY vitamins A,C,J-vppi-ujcotj 4,296 mcg-226 mg-90 mg (Preser[employer]ision AREDS) 1 cap PO BID Tobacco use date assessed: 10/05/23 Dental Screening Dental Screen Date: 07/21/23 HPI Follow up HPI Details Patient presents for the follow-up on hypertension hyperlipidemia type 2 diabetes stable on medications. [facility] Medical History Renal mass, left Lobular breast cancer Abnormal mammogram of left breast Annual physical exam Paroxysmal A-fib Hyperlipidemia CAD (coronary artery disease) HTN (hypertension) Diabetes Surgical History Hx of cataract surgery History of section History of breast biopsy H/O colonoscopy Family History Father No problems noted. Mother No problems noted. Son No problems noted. Social History Housing: House Alcohol intake: never Patient Tobacco Use Status: Never used Tobacco e-Cigarette/Vaping Use: Never Used service: No Current occupational status: retired Cognitive needs: No Hearing needs: No Vision needs: Yes Questionnaire Thrive Questionnaire Date Thrive assessed: 07/21/23 SARAH-7 AMB Questionnaire SARAH-7 Date SARAH - 7 assessed: 07/21/23 Source: Developed by Drs. Stuart Hu, Gloria Patel, Juan A Maya and colleagues, with an educational meka from [employer]. Review of Systems Const All systems reviewed & are unremarkable except as noted in HPI and below Reports no additional complaints Eyes Reports no additional complaints ENT Reports no additional complaints Physical exam (Primary Care) Vital Signs: Last Vital Signs Pulse 75 10/05/23 09:45 BP 122/74 10/05/23 09:45 Pulse Ox 97 10/05/23 09:45 Oxygen Delivery Method Room Air 10/05/23 09:45 BMI result Body Mass Index 27.9 Tobacco/Smoking Status: Tobacco use Status Tobacco use date assessed 10/05/23 10/05/23 09:46 Patient Tobacco Use Status Never used Tobacco 10/05/23 09:46 e-Cigarette/Vaping Use Never Used 10/05/23 09:45 Thrive Assessment: Date of Thrive Assessment Date Thrive assessed 07/21/23 10/05/23 09:45 Const General: no acute distress HENMT Head: Yes normal to inspection Mouth: Normal oral and palatal mucosa present Eyes General: appearance normal, both eyes and all related structures Neck Neck: Yes supple Resp Effort & Inspection: normal respiratory effort Auscultation: clear to auscultation bilaterally Cardio Rhythm: regular rhythm Heart sounds: S1 normal heart sound present and S2 normal heart sound present GI Inspection: Yes normal to inspection Palpation (GI): Soft to palpation Percussion: Yes normal to percussion Auscultation: normal bowel sounds Assessment and Plan Assessment & Plan (1) Diabetes: Comment: A1C <7 Code(s): E11.9 - Type 2 diabetes mellitus without complications Plan: A1c is 6.1, ADA diet increase exercise weight loss discussed with the patient. Continue current medications (2) HTN (hypertension): Comment: BP goal less than 130/80 Code(s): I10 - Essential (primary) hypertension Plan: Continue current medications (3) Paroxysmal A-fib: Comment: Episode of AFib post [place] Code(s): I48.0 - Paroxysmal atrial fibrillation Plan: Continue Eliquis and beta alex (4) Cancer of left kidney: Comment: left lower lobe 3 cm mass , bx renal cell ca dxd 08/11, s/p cryoablation 10/12, stable on US 02/12, f/u [facility] oncology Dr. Deng Code(s): C64.2 - Malignant neoplasm of left kidney, except renal pelvis Plan: Follow-up with oncology and urology (5) Lobular breast cancer: Comment: 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 Wilson at [facility] Code(s): C50.919 - Malignant neoplasm of unspecified site of unspecified female breast Plan: Follow-up with comprehensive [facility] Orders: Orders Complete Blood Count Auto Diff 6 Months E11.9 - Type 2 diabetes mellitus without complications, I10 - Essential (primary) hypertension, I48.0 - Paroxysmal atrial fibrillation Lipid Panel 6 Months E11.9 - Type 2 diabetes mellitus without complications, I10 - Essential (primary) hypertension, I48.0 - Paroxysmal atrial fibrillation Comprehensive [place]. Panel Fast 6 Months E11.9 - Type 2 diabetes mellitus without complications, I10 - Essential (primary) hypertension, I48.0 - Paroxysmal atrial fibrillation Hemoglobin A1c 6 Months E11.9 - Type 2 diabetes mellitus without complications, I10 - Essential (primary) hypertension, I48.0 - Paroxysmal atrial fibrillation Microalbumin, Random (w Creat) 6 Months E11.9 - Type 2 diabetes mellitus without complications, I10 - Essential (primary) hypertension, I48.0 - Paroxysmal atrial fibrillation IRON PROFILE 6 Months E11.9 - Type 2 diabetes mellitus without complications, I10 - Essential (primary) hypertension, I48.0 - Paroxysmal atrial fibrillation Coding Level of Care Code Est Pt Level 5 (79497) Diagnoses Diabetes E11.9 HTN (hypertension) I10 Paroxysmal A-fib I48.0 Cancer of left kidney C64.2 Lobular breast cancer C50.919
== END 2023-10-05 10:54 | disposition home or self-care (01) ==
PROVIDERS: PCP Internal Medicine; Visit Provider Internal Medicine
DX: C64.2 Malignant neoplasm of left kidney, except renal pelvis (principal); C50.919 Malignant neoplasm of unspecified site of unspecified female breast; E11.9 Type 2 diabetes mellitus without complications; I48.0 Paroxysmal atrial fibrillation; I10 Essential (primary) hypertension
CPT/HCPCS: 99215

== ENCOUNTER → 2024-02-16 07:49 | Outpatient (BNV) | payer MEDICARE, MEDICAID, SELFPAY | PROVIDERS: PCP Internal Medicine; Visit Provider Internal Medicine | DX: Z85.3 Personal history of malignant neoplasm of breast (principal); Z85.520 Personal history of malignant carcinoid tumor of kidney | CPT/HCPCS: 99204; G2211 ==

== ENCOUNTER 2024-03-07 13:26 | Outpatient (REF) | payer MEDICARE, OTHER, SELFPAY ==
--- NOTE | ~2024-03-07 | US_ITS ---
EXAMINATION: US RETROPERITONEAL LIMITED (RENAL ONLY) CLINICAL INFORMATION: Left-sided renal cell carcinoma status post cryoablation. History of right renal cyst. COMPARISON: Abdomen pelvic CT 10/25/2017 TECHNIQUE: Ultrasound of the kidneys was performed FINDINGS: RIGHT KIDNEY: 10.6 x 4.9 x 5.3 cm (SAG x AP x TRV). The kidney is normal in size, contour, and echogenicity. Renal cortical thickness is normal. No calculi or hydronephrosis. A benign lower pole 1.5 cm Bosniak class II cyst with a single fine septation is noted which requires no additional imaging or follow up. No solid renal masses are seen. LEFT KIDNEY: 9.8 x 5.4 x 5.6 cm (SAG x AP x TRV). The kidney is normal in size, contour, and echogenicity. Renal cortical thickness is normal. No calculi or hydronephrosis. The cryoablation site is seen measuring 1.7 x 1.7 x 2.0 cm. No vascular flow is demonstrated in this area. At the time of the prior CT scan, a large cyst was noted in this region. US/US renal BI IMPRESSION: No evidence of recurrent or residual disease in the left kidney. Pre and postcontrast CT scan would be better for evaluation. Electronically signed by: Denys Dumont MD 03/08/2024 09:49 AM EDT
== END 2024-03-07 13:27 | disposition home or self-care (01) ==
LOC: HO.US 13:26
PROVIDERS: PCP Internal Medicine; Visit Provider Internal Medicine
DX: N28.89 Other specified disorders of kidney and ureter (principal)
CPT/HCPCS: 76775

== ENCOUNTER 2024-03-21 08:43 | Outpatient (AMB) | payer MEDICARE, MEDICAID, SELFPAY ==
[2024-03-21 08:53] VITALS: BP 140/70; PULSE 75; BMI 31.2
--- NOTE | 2024-03-21 08:53 | MHC.OFFVIS ---
Vital Signs 03/21/24 08:53 Height 5 ft 1 in Weight 164 lb 14.492 oz BMI 31.2 BP 140/70 H Blood Pressure Location Lt brachial Position Sitting Pulse 75 Pulse Source Monitor Intake Visit Reasons: 6 mth f/up Perianesthesia Manager Required: Yes Perianesthesia Manager Language: [place]an Perianesthesia Manager Name: Cyracom/uruguayan/ Nusrat Accompanied by: Self / Same As Patient Allergies No Known Allergies [No Known Allergies*] Allergy (Verified 02/16/24 08:05) Medication List - Last Reconciled 03/21/24 by Aidan Oliver MD amlodipine 5 mg PO DAILY apixaban (Eliquis) 5 mg PO BID 90 days aspirin (Adult Low Dose Aspirin) 81 mg PO DAILY atorvastatin 80 mg PO DAILY blood sugar diagnostic ([email or web address] Verio test strips) 1 strip miscellaneous DAILY blood-glucose meter ([email or web address] Verio Meter) As directed calcium carbonate 1 tab PO DAILY cholecalciferol (vitamin D3) 25 mcg PO DAILY ezetimibe (Zetia) 10 mg PO DAILY ferrous sulfate 325 mg PO DAILY isosorbide mononitrate ER 30 mg PO DAILY lancets ([employer] Delica Lancets) Test blood sugar once a day losartan 50 mg PO DAILY metformin 500 mg PO BID metoprolol tartrate 25 mg PO DAILY vitamins A,C,N-xlvb-njhxcy 4,296 mcg-226 mg-90 mg ([employer] AREDS) 1 cap PO BID HPI Comments Details: 73-year-old female here for follow-up. She has history of coronary disease with previous NSTEMI for which she underwent left circumflex artery PCI. 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 Subsequent to that she developed atrial fibrillation and was started on Coumadin. She has been maintained on Plavix and Coumadin. Unfortunately she got diagnosed with left breast cancer and is undergoing chemotherapy. She is noted to be anemic and was also complaining of bright red blood per rectum specially when she is wiping at the end of passing stools. Story sounds more like hemorrhoids but due to these issues she was brought to the office for further assessment. Denying any chest pain or shortness of breath. Obviously quite stressed and depressed due to breast cancer and ongoing chemotherapy. [id number] acted as drug safety physician. 05/18/2023: She returns for follow-up. She is following with Oncology and has been stable. She is in need of cataract surgery. Denying any other symptoms currently. 09/19/23: She is here for follow-up. She has been doing well. No chest discomfort shortness of breath. Taking medications regularly. She is stable from breast cancer viewpoint. 03/21/2024: She is here for follow-up. She is complaining of some shortness of breath with activity as well as upper chest discomfort. She is saying this lasts for 10 minutes and then gets better. 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 [facility] Medical History Renal mass, left Lobular breast cancer Abnormal mammogram of left breast Annual physical exam Paroxysmal A-fib Hyperlipidemia CAD (coronary artery disease) HTN (hypertension) Diabetes Surgical History Hx of cataract surgery History of section History of breast biopsy H/O colonoscopy Family History Father No problems noted. Mother No problems noted. Son No problems noted. Social History Household Members: Spouse Housing: House Alcohol intake: never Patient Tobacco Use Status: Never used Tobacco e-Cigarette/Vaping Use: Never Used service: No Current occupational status: retired Cognitive needs: No Hearing needs: No Vision needs: Yes Review of Systems Const Denies chills, Denies fatigue, Denies fever(s), Denies frequent falls, Denies weakness, Denies weight gain and Denies weight loss ENT Denies dizziness Card Denies chest pain, Denies leg edema, Denies lightheadedness, Denies palpitations, Denies dyspnea and Denies dyspnea on exertion Resp Denies cough, Denies dyspnea and Denies dyspnea on exertion GI Denies hematochezia Musc Denies abnormal gait, Denies muscle weakness, Denies numbness, Denies radiating pain into limb and Denies tingling Neuro Denies abnormal gait, Denies dizziness, Denies frequent falls, Denies numbness, Denies tingling and Denies weakness Endo Denies fatigue and Denies palpitations Physical Exam Vital Signs: Last Vital Signs Pulse 75 03/21/24 08:53 BP 140/70 H 03/21/24 08:53 BMI result Body Mass Index 31.2 GENERAL APPEARANCE: in no acute distress, pleasant. NECK: no carotid bruit, no jugular venous distention. SKIN: no suspicious lesions, warm and dry. HEART: no murmurs, regular rate and rhythm. LUNGS: clear to auscultation bilaterally. ABDOMEN: soft, nontender. EXTREMITIES: no edema. PERIPHERAL PULSES: equal. NEUROLOGIC: No gross deficits, AAO X 3 Office Procedures EKG Details: Sinus rhythm 75 beats per minute, first-degree AV block with WI interval 260 milliseconds. Premature ventricular complexes, QTC 446 milliseconds. [id number], Complete Assessment & Plan Assessment & Plan (1) HTN (hypertension): Comment: BP goal less than 130/80 Code(s): I10 - Essential (primary) hypertension Category: Medical (2) CAD (coronary artery disease): Comment: s/p DEYANIRA to cx for NSTEMI 05/2019 cardiac cath RCA chronic occluded. Code(s): I25.10 - Atherosclerotic heart disease of [place] coronary artery without angina pectoris Category: Medical (3) Dyspnea on exertion: Code(s): R06.00 - Dyspnea, unspecified Category: Medical Plan Pleasant 73 year female who is here for follow-up. Blood pressure is mildly elevated. She is complaining of dyspnea as well as central chest discomfort with activity. 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 We will arrange a stress echocardiogram for her. She is currently on anticoagulation for paroxysmal atrial fibrillation. She is taking Eliquis 5 mg twice a day. Monitor blood pressure closely and if blood pressure is elevated amlodipine can be increased to 10 mg. She will see us back after stress testing in few months. Thank you for allowing me to participate in the care of your patient. Please feel free to contact me if you have any questions. Orders: Orders CA echo stress exercise w con Today I25.10 - Atherosclerotic heart disease of [place] coronary artery without angina pectoris Coding Level of Care Code Est Pt Level 4 (92934) Diagnoses HTN (hypertension) I10 CAD (coronary artery disease) I25.10 Dyspnea on exertion R06.00 CPT Codes EKG - CPT: 71307-[id number], Complete ([id number])
== END 2024-03-21 09:20 | disposition home or self-care (01) ==
LOC: HO.HCS 08:44
PROVIDERS: PCP Internal Medicine; Visit Provider Internal Medicine Cardiovascular Disease
DX: I10 Essential (primary) hypertension (principal); I25.10 Atherosclerotic heart disease of native coronary artery without angina pectoris; R06.00 Dyspnea, unspecified
CPT/HCPCS: 93010; 99214

== ENCOUNTER → 2024-03-21 08:43 | Outpatient (BNVA) | payer MEDICARE, MEDICAID, SELFPAY | PROVIDERS: PCP Internal Medicine; Visit Provider Internal Medicine Cardiovascular Disease | DX: I10 Essential (primary) hypertension (principal); I25.10 Atherosclerotic heart disease of native coronary artery without angina pectoris; R06.00 Dyspnea, unspecified | CPT/HCPCS: 93005; 99212 ==

== ENCOUNTER → 2024-04-09 10:33 | Outpatient (REF) | payer MEDICARE, MEDICAID, SELFPAY ==
--- NOTE | 2024-04-09 10:36 | CA_ITS ---
Acquisition Time: 2024-04-09 11:12:43 Total Exercise Time: 00:04:23 Test Indications: CP, SOB Medications: SEE H Protocol: DONNA Max HR: 104 BPM 71% of Pred: 146 BPM Max BP: 136/066 mmHG Max Work Load: 6.2 METS Exercise Stress Test with exercise 4 mins 23 secs of Donna Protocol, achieving 66% MPHR, treadmill stopped due to drop in BP from 136/66 to 100/44 then to 96/38, mild SOB, with no chest discomfort, with isolated PVCs. With nondiagnostic EKG due to suboptimal HR. Echo images obtained by Firmex at rest and immediately post peak exercise. Definity used. In recovery, BP came up to 118/52. Following completion of test, orthostatic BPs checked- sitting 126/62, standing 112/56. Test reviewed with Dr. Branham. Echo images reviewed at rest and post stress. At rest: Normal LVEF with basal inferior hypokinesis. Post stress: Imaging is somewhat limited but no obvious new RMWA. Inferior wall motion appears similar. LV function appears to augment appropriately. Diastology: Limited data but no obvious exercise induced diastolic dysfunction. Conclusion: Equivocal stress test. We will arrange further testing because she had hypotension during exercise. Referred By: Aidan Oliver Overread By: Aidan Oliver
== END ==
LOC: HO.CARD 10:33
PROVIDERS: PCP Internal Medicine; Visit Provider Internal Medicine Cardiovascular Disease
DX: I25.10 Atherosclerotic heart disease of native coronary artery without angina pectoris (principal)
CPT/HCPCS: 93350; Q9957

== ENCOUNTER → 2024-04-09 10:36 | Outpatient (BNV) | payer MEDICARE, MEDICAID, SELFPAY | PROVIDERS: PCP Internal Medicine; Visit Provider Internal Medicine Cardiovascular Disease | DX: R06.02 Shortness of breath (principal); I49.3 Ventricular premature depolarization | CPT/HCPCS: 93351; 93352 ==

== ENCOUNTER 2024-04-28 07:32 | Outpatient (REF) | payer MEDICARE, MEDICAID, SELFPAY ==
[2024-04-28 08:25] LABS: MANUAL DIFF FLAG NO
[2024-04-28 09:08] LABS: Basophils Percent Auto 0.6 % (0-2); Eosinophils Absolute Auto 0.1 X10*3/uL (0.0-0.4); Eosinophils Percent Auto 1.1 % (0-4); Hematocrit 34.8 % (37.0-47.0); Hemoglobin 11.5 g/dl (12.0-16.0); INTERNATIONAL NORM RATIO 1.2 (0.9-1.1); Lymphocytes Absolute Auto 1.7 X10*3/uL (1.2-4.9); Lymphocytes Percent Auto 32.6 % (20-40); Mean Corpuscular Hemoglobin 29.6 pg (27.0-33.0); Mean Corpuscular Volume 89.5 fL (80.0-98.0); Mean Platelet Volume 11.3 fL (9.4-12.3); Monocytes Absolute Auto 0.6 X10*3/uL (0.1-1.2); Monocytes Percent Auto 10.4 % (2-11); Neutrophils Absolute Auto 2.9 x10*3/uL (2.0-8.3); Neutrophils Percent Auto 55.3 % (45-73); Platelet Count 227 X10*3/uL (160-400); Prothrombin Time 14.4 SEC (10.9-12.4); Red Blood Count 3.89 X10*6/uL (4.20-5.50); Red Cell Distribution Width 13.2 % (11.0-16.0); White Blood Count 5.3 X10*3/uL (4.8-10.8)
[2024-04-28 09:10] LABS: Estimated Average Glucose 131 mg/dL; Hemoglobin A1C 133.2197 umol/L; Hemoglobin A1c % 6.2 % (<6.0); Total Hemoglobin (HGBA1C) 2996.5954 umol/L
[2024-04-28 09:40] LABS: Alanine Aminotransferase 19 U/L (0-31); Albumin Level 4.2 g/dL (3.5-5.0); Alkaline Phosphatase 92 U/L (39-117); Anion Gap 14 (12-20); Aspartate Amino Transferase 22 U/L (5-31); Bilirubin Total 0.8 mg/dL (0.0-1.0); Blood Urea Nitrogen 23 mg/dL (9-16); Carbon Dioxide 25 mmol/L (22-29); Chloride 110 mmol/L (96-108); Cholesterol 99 mg/dL (<200); Estimated Glomerular Filt Rate > 60; Glucose Fasting 129 mg/dL (60-99); Glucose Random 129 mg/dL (60-115); HDL Cholesterol 29 mg/dL (>40); Iron 75 mcg/dL (30-160); LDL Cholesterol Calculated 53 mg/dL (<100); Percent Iron Saturation 27 % (15-50); Potassium 3.9 mmol/L (3.3-5.1); Sodium 145 mmol/L (135-145); Total Iron Binding Capacity 278 mcg/dL (228-428); Triglycerides 86 mg/dL (<150); Unsaturated Iron Binding 203 ug/dL
[2024-04-28 12:01] LABS: Creatinine Urine 157.72 mg/dL; Microalbum/Creatinine Ratio Ur 17.7 ug/mg cr (<30)
--- OUTSIDE RECORDS SUMMARY | 2024-05-02 11:38 | XMS_ITS | Continuity of Care Document ---
Author Organization [facility] ter Address [address] [place] [id number]- Care Team Providers Care Thread Twister Name Role Phone Traci Salinas MD Primary Care Physician [phone] Encounter [facility] Date(s): 05/01/24 - 05/01/[address] [address] Discharge Disposition: A-D/C Home Attending Physician: Aidan Oliver MD Admitting Physician: Aidan Oliver MD Referring Physician: Aidan Oliver MD Encounter Type: Disch Daystay Allergies, Adverse Reactions, Alerts No Known Allergies Medications amLODIPine 5 mg oral tablet 5 mg, 1, tablet, By Mouth, Daily, # 30 tablet, Refills 0, Maintenance, 06/17/19 2:42:00 PM EST Start Date: 06/17/19 Status: Ordered Quantity: 30.0 Unit: tablet Repeat number: 1 aspirin 81 mg oral delayed release tablet 1 tablet = 81 mg, By Mouth, Daily, # 90 tablet, 2 Refills, Maintenance, 06/21/19 12:27:00 PM EST, ECTablet, [id number], 163, cm, 06/21/19 12:12:00 EST, Height, 68.6, kg, 06/17/19 14:57:00 EST, Dry Weight Start Date: 06/21/19 Stop Date: 03/17/20 Status: Ordered Quantity: 90.0 Unit: tablet Repeat number: 3 atorvastatin 80 mg oral tablet 1 tablet = 80 mg, By Mouth, Daily at bedtime, # 90 tablet, 3 Refills, Maintenance, 06/21/19 12:27:00PM EST, Tablet, [id number], 163, cm, 06/21/19 12:12:00 EST, Height, 68.6, kg, 06/17/19 14:57:00 EST, Dry Weight Start Date: 06/21/19 Stop Date: 06/15/20 Status: Ordered Quantity: 90.0 Unit: tablet Repeat number: 4 calcium carbonate 750 mg oral tablet, chewable 1 tablet = 750 mg, Chew, 2 times a day, # 60 tablet, 0 Refills, Maintenance, 06/17/19 2:44:00 PM EST, Chew Tablet Start Date: 06/17/19 Status: Ordered Quantity: 60.0 Unit: tablet Repeat number: 1 cholecalciferol 1000 intl units oral capsule 1 capsule = 1,000 International_Units, By Mouth, Daily, # 75 capsule, 0 Refills, Maintenance, 06/17/19 2:43:00 PM EST, Capsule Start Date: 06/17/19 Status: Ordered Quantity: 75.0 Unit: capsule Repeat number: 1 Eliquis 5 mg oral tablet 1 tablet = 5 mg, By Mouth, 2 times a day, TAKE 1 TABLET BY MOUTH TWICE DAILY Start Date: 05/01/24 Status: Ordered Repeat number: 1 ferrous sulfate 324 mg (65 mg elemental iron) oral delayed release tablet 1 tablet = 324 mg, By Mouth, Daily, # 1,000 tablet, 0 Refills, Maintenance, 05/01/24 11:56:00 AM EST, CR Tablet, Partial fill upon patient request if the prescription is for a schedule II opioid drug. Start Date: 05/01/24 Status: Ordered Quantity: 1000.0 Unit: tablet Repeat number: 1 losartan 100 mg oral tablet 1 tablet = 100 mg, By Mouth, Daily, # 30 tablet, 0 Refills, Maintenance, 06/17/19 2:43:00 PM EST, Tablet Start Date: 06/17/19 Status: Ordered Quantity: 30.0 Unit: tablet Repeat number: 1 metFORMIN 500 mg oral tablet, extended release 1 tablet = 500 mg, By Mouth, Daily, # 30 tablet, 0 Refills, Maintenance, 06/17/19 2:42:00 PM EST, ERTablet Start Date: 06/17/19 Status: Ordered Quantity: 30.0 Unit: tablet Repeat number: 1 metoprolol 25 mg oral tablet 25 mg, 1, tablet, By Mouth, 2 times a day, # 60 tablet, Refills 2, Tot. Refills 2, Maintenance, 06/21/19 12:27:00 PM EST, Route to Pharmacy Electronically, [id number], 163, cm, 06/21/19 12:12:00 EST, Height, 68.6, kg, 06/17/19 14:57:00 EST, Dry Weight Start Date: 06/21/19 Stop Date: 09/19/19 Status: Ordered Quantity: 60.0 Unit: tablet Repeat number: 3 PreserVision AREDS 2 oral capsule By Mouth, Daily, 0 Refills, Maintenance, 06/17/19 2:43:00 PM EST Start Date: 06/17/19 Status: Ordered Repeat number: 1 Problem List Condition Confirmation Course Effective Dates Status Health St atus Informant Obese class I Confirmed Active Vital Signs Most recent to oldest [Reference Range]: 1 2 3 Height 154 cm (05/01/24 8:45 AM) Weight 71.8 kg (05/01/24 8:45 AM) Oxygen Saturation [94-100 %] 97 % (05/01/24 1:30 PM) 96 % (05/01/24 1:00 PM) 97 % (05/01/24 12:30 PM) Pulse Rate [55-90 bpm] 70 bpm (05/01/24 8:45 AM) Body Mass Index [18.5-24.99 kg/m2] 30.27 kg/m2 *>HHI* (05/01/24 8:45 AM) Blood Pressure [90-138/55-84 mm Hg] 150/65mm Hg *H* (05/01/24 1:30 PM) 142/73mm Hg *H* (05/01/24 1:00 PM) 149/71mm Hg *H* (05/01/24 12:30 PM) Respiratory Rate [16-30 br/min] 18 br/min (05/01/24 1:33 PM) 17 br/min (05/01/24 1:14 PM) 18 br/min (05/01/24 12:44 PM) Temperature [96.8-100.4 DegF] 97.5 DegF (05/01/24 8:45 AM) Mode of Delivery (Oxygen) Room air (05/01/24 1:30 PM) Room air (05/01/24 1:00 PM) Room air (05/01/24 12:30 PM) Blood pressure sites Arm, right (05/01/24 8:45 AM) Temperature Route Temporal (05/01/24 8:45 AM) Note * Event Display: Hemodynamic Procedure Report Authored Date: * Lara Sánchez RN: PERFORM Event Display: Discharge/Transfer Note Hospital Authored Date: [id number] Nursing Discharge Note Entered On: 05/01/2024 15:06 EST Performed On: 05/01/2024 15:03 EST by Lara Sánchez RN Nursing Discharge Note 2 Discharge Time : 05/01/2024 14:12 EST Discharge Level of Care at Discharge : Home/Alf/Foster Care Brace End [facility] Former Utilized : Yes Patient Left Unit Via : Wheelchair Patient Accompanied Off Unit with : Responsible adult DC Instructions Provided & Signed by Pt : Yes Patient Understands D/C Instructions : Yes Verbalized Understanding of D/C Plan By : Family, Patient Patient Instructions Discharge Signed : Yes Discharge Comments : IV site d/c catheter intact. d/c education completed with interpreter and translator and family present . questions encouraged and answered and pt and family verbalized full understanding. pt stable with all belongings at time of d/c home. Did Pt have Specialty Bed or Wound Vac : No Lara Sánchez RN - 05/01/2024 15:03 EST * Lara Sánchez RN: PERFORM Event Display: Patient Education/Instruction Authored Date: [id number] Inpatient Adult Discharge Instructions. [address] [address] Name: JESSICA NEWELL : 1950?? Visit: 05/01/2024 08:14?? Current Date: 05/01/2024 13:43 ?? Account: [id number]?? Inpatient Adult Discharge Instructions We would like to thank you for allowing us to assist you with your healthcare needs. The following includes patient education materials and information regarding your injury/illness. Our entire staffstrives to provide an excellent experience for our patients and their families. PLEASE ENSURE YOU FOLLOW-UP PER THE INSTRUCTIONS BELOW! ?? YOUR OPINION IS IMPORTANT TO US! Please complete the survey you may receive by mail or email. Your feedback will be used to make improvements to the healthcare experiences of our patients and their families. Surveys are administered by [employer] ?? If further treatment with your primary care physician or another doctor is recommended, it is important for you to keep the appointment. Call your primary care physician or return to the Emergency Department immediately if your condition worsens, fails to improve, or new symptoms develop. If you need to find a doctor, you can call [facility] for a referral at [phone] or toll free at [phone]) or log in to [email or web address].. ?? [facility], in keeping with [facility] guidance, no longer requires face masks for staff, patientsor visitors in most situations. Similiar to time spent indoors at other locations, there is the chance that you were exposed to repiratory viruses during your time with us (such as flu or COVID-19). If you develop symptoms concerning for a viral respiratory infection, please seek testing (and treatment if indicated) from your medical provider or home test kit. ?? You can view and manage your care through the patient portal or by using a health care angel of your choosing. [employer] is a website that allows you to securely view your medical information including your hospital discharge summary, office visit summaries, medications and follow-up visits. You can also request appointments, renew medications, and request access to your medical information using a health care angel of your choosing, or just ask a question. You can enroll at [email or web address] or register during your next office visit. You have been discharged from [facility], Patient Care Unit: CARE??. If you have any questions regarding these instructions, including results of studies pending, afteryou leave, please call us and we will be happy to assist you 13/12. [facility] Nursing Unit Direct Phone Number, for 13/12 contact and results of studies pending CARE [address] [place] [address] Your Care Team Attending Physician Aidan Oliver MD?? Consulting Providers Aidan Oliver MD?? Discharging Providers Aidan Oliver MD Tests Performed Below is a partial list of the tests performed during your hospitalization. You may have had other tests and procedures not included in this list. Please discuss all test results with your provider. GLUCOSE POC Glucose POC?? Primary Care Provider Traci Salinas MD? Advance Directive Health Care Proxy on File No Discharge Vitals Temperature: 97.5 DegF Height: 154 cm Pulse Rate: 70 bpm Weight: 71.8 kg Respiratory Rate: 17 br/min Body Mass Index:??30.27 kg/m2??Critical Systolic Blood Pressure:??146 mm Hg??High Body surface area: 1.75 Diastolic Blood Pressure: 64 mm Hg ?? Oxygen Saturation: 96 % ?? Studies Pending All studies ordered during this hospital stay have been completed unless listed below. Please discuss all pending results with your provider listed above in these instructions. ?? No incomplete studies found?? What to do next Instructions From Your Doctor ?? Orders?? Unit Discharge Criteria Met, ??05/01/24 13:32:00 EST?? You Need to Schedule the Following Appointments Follow Up with??Aidan Oliver MD Why: Call with any questions or concerns. / Dav??w austin??jakichkolwiek??pytan lub??watpliwosci Where: [address] [facility] [place] [address]- Discharge Medications JESSICA NEWELL :1950 Visit Date:05/01/2024 Medications: Please continue your medications until treatment is completed or stopped by your provider. Medications not listed below should be discontinued. Discuss any questions related to medications with your provider. What How Much When Instructions Next Dose Unchanged Amlodipine (amLODIPine 5 mg oral tablet) 1 tab(s) Oral Daily Unchanged apixaban (Eliquis 5 mg oral tablet) 1 tab(s) Oral Twice a day TAKE 1 TABLET BY MOUTH TWICE DAILY ?? Unchanged Aspirin (aspirin 81 mg oral delayed release tablet) 1 tab(s) Oral Daily Duration: 90 Days Unchanged Atorvastatin (atorvastatin 80 mg oral tablet) 1 tab(s) Oral Daily at Bedtime Duration: 90 Days Unchanged Calcium Carbonate (calcium carbonate 750 mg oral tablet, chewable) 1 tab(s) Chew Twice a day Unchanged Cholecalciferol (cholecalciferol 1000 intl units oral capsule) 1 capsule Oral Daily Unchanged Ferrous Sulfate (ferrous sulfate 324 mg (65 mg elemental iron) oral delayed release tablet) 1 tab(s) Oral Daily Unchanged Losartan (losartan 100 mg oral tablet) 1 tab(s) Oral Daily Unchanged Metformin (metFORMIN 500 mg oral tablet, extended release) 1 tab(s) Oral Daily Unchanged Metoprolol (metoprolol 25 mg oral tablet) 1 tab(s) Oral Twice a day Duration: 30 Days Unchanged Multivitamin With Minerals (PreserVision AREDS 2 oral capsule) Oral Daily Prescription Given During Visit No new medications prescribed at time of discharge.?? Laboratory Results Below is a partial list of the most recent Laboratory test results done prior to this discharge. You may have had other tests and procedures not included in this list. Please discuss all test resultswith your provider. GLUCOSE POC (05/01/2024) ???Glucose, POC - 126 mg/dL You will be contacted within 72 hours with your results. Allergies (NKA means No Known Allergies) NKA Problems Active Problems??(1) Obese class I?? Education Materials Below is the list of Educational Leaflet Providered with your Discharge Instructions. [employer] Patient Education - Discharge Instructions for Cardiac Catheterization?? [employer] Patient Education - Surgery Radial Cath Approach Discharge Instructions?? [employer] Patient Education - Procedural Sedation, Recovery (Adult)?? [employer] Patient Education - Cardiac Catheterization, Bleeding or Hematoma After?? Valuables and Belongings I fully understand and agree that [facility] accepts no responsibility for all my personal property including clothing, toilet articles, radios, jewelry, dentures, hearing aids, rings, money, or any other property that is in my possession or is brought to me after admission. I understand certain valuables may be placed in a hospital safe for a short period of time. I understand that the hospital is not liable for loss or damage due to accident, fire, or other natural occurrence while said property is in the safe. I accept full responsibility for any personal property that I keep with me, and will not hold the hospital responsible in case of loss or disappearance. I acknowledge that i have been encouraged to send valuables and belongings home. ?? Review of Valuable and Belonging List: With patient, With family Date for Pt to Sign Valuables/Belongings: 05/01/24 11:58:00 ?? Other Discharge Information ? Pulmonary Rehab Status?? Pulmonary Rehab Discharge Status?? Respiratory Rate: 17 br/min ? Common Emergency Awareness Tips IS IT A STROKE? Act FAST and Check for these signs: FACE Does the face look uneven? ARM Does one arm drift down? SPEECH Does their speech sound strange? TIME Call at any sign of stroke ?? Heart Attack Signs Chest discomfort: Most heart attacks involve discomfort in the center of the chest and lasts more than a few minutes, or goes away and comes back. It can feel like uncomfortable pressure, squeezing, fullness or pain. Discomfort in upper body: Symptoms can include pain or discomfort in one or both arms, back, neck, jaw or stomach. Shortness of breath: With or without discomfort. Other signs: Breaking out in a cold sweat, nausea, or lightheaded. Remember, MINUTES DO MATTER. If you experience any of these heart attack warning signs, call to get immediate medical attention! ?? Smoking can increase your chances of developing chronic health problems and can cause harmful effects to other family members in your house. If you smoke, you are strongly encouraged to quit. Please call [facility] at [phone] or [phone]) or log in to [email or web address] for referrals to smoking cessation programs. ?? 658 Suicide & Crisis Lifeline is available 13/12 if you or someone you know needs to find a reason to keep living. By calling 525 you'll be connected to a skilled, trained counselor at a crisis center in your area. INPATIENT DISCHARGE INSTRUCTIONS SIGNATURE PAGE JESSICA NEWELL Location:[facility] Registration Date and Time:05/01/2024 08:14 EST Primary Care Physician: Traci Salinas MD, Attending Physician: Benito LEE, Aidan, I JESSICA NEWELL, have received the above patient education materials/instructions and have verbalized understanding. If ambulance or transport services are being used I further acknowledge being given a choice of service. ?? If you need to contact me, please call me at this number: . Patient/Part Time Receptionist Name: Patient/Part Time Receptionist Signature: Relationship to Patient: Witness Name/Signature: Date: * E Lara Salazar RN: PERFORM Event Display: Patient Education Leaflets Authored Date: [id number] Discharge Instructions for Cardiac Catheterization ?? [id number] Zalecenia przy wypisie w przypadku cewnikowania serca Cewnikowanie serca to inwazyjny zabieg aurelio??cy na celu ocen?? problem??w z??sercem zwi??zanych z??komoramishanthiawkami i??naczyniami krwiono??nymi. ??Cienka, mi??kka brigidarbg (cewnik) zostaje wprowadzona do naczynia krwiono??nego w??pachwinie lub r??ce. Po przemieszczeniu cewnika do serca mo??na przepr owadzi?? pomiary w??celu oceny przep??ywu krwi, ci??nienia oraz tlenu. Lekarz mo??e poda?? kontrastdo krwi, kt??ry nast??pnie wp??ynie do serca.??P?niej genny si?? zdj??nelida RTG serca. Cz??sto w??ramach cewnikowania serca wykonuje si?? angiografi?? t??tnic wie??cowych (koronografi??), szukaj??c niedro??nych miejsc w??t??tnicach przesy??aj??cych krew do serca. Je??li zostanie znaleziona du??a niedro??no?, w??wczas lekarz mo??e spr??bowa?? otworzy?? t??tnic??, co zwykle wi?e si?? z??wstawieniem stentu. Lekarz przejrzy wyniki tego zabiegu wsp??lnie z??Tob??. Pami??taj, navi zapyta?? o??wszystko, co Ci?? w??tym zakresie nurtuje. Ten arkusz pomo??e Ci lepiej zaj? si?? sob?? w??domu. Leczenie w??domu ??? Mariia prowad?? pojazd??w ani mariia podejmuj ??adnych wa??nych decyzji przez przynajmniej 24??h po przyj??ciu jakiegokolwiek znieczulenia miejscowego lub og??lnego.? Popro?? odpowiedzialn?? osob?? doros?, navi zawioz??a Ci?? do domu po zabiegu. ??? Przez nast??pne 2??do??3??dni wykonuj jejanesnie lekkie i??proste prace. Popro?? o??pomoc z??wykonywaniem prac domowych oraz innych zaj? do czasu wyzdrowienia. Popro?? kogo??, navi zawozi?? Ci?? na wizyty lekarskie. ??? Mariia podno?? niczego ci?kiego do czasu, gdy lekarz powie, ??e mo??esz ju?? bezpiecznie podnosi?? ci?kieprzedmioty. ??? Zapytaj gail, rolly mo??esz spodziewa?? si?? powrotu do pracy. Je??li Twoja praca wi?e si?? z??podnoszeniem ci?kich przedmiot??w, by?? mo??e b??dzie trzeba poczeka?? z??powrotem przez kilka dni. ??? Przyjmuj leki wed??ug zalece??. Mariia pomijaj dawek. ??? Pij od 6 do 8 szklanek wody dziennie. W??ten spos??b szybciej usuniesz ??rodek kontrastuj??cy z??organizmu. Skontaktuj si?? z??lekarzem, je??li Tw??j jay holman. ??? Codziennie przez 7??dni mierz sobie temperatur??. Je??li poczujesz ch?d i??lepko? na sk??rze lub zaczniesz si?? poci??, natychmiast zmierz temperatur?? i??skontaktuj si?? z??lekarzem. ??? Codziennie sprawdzaj ranki po naci??ciach pod k??tem ewentualnej infekcji. Niepokoj??ce objawy to zaczerwienienie, obrz??k lub wyp??yw wydzieliny. Zwykle w??miejscu wprowadzenia cewnika pojawia si?? ma??y siniak lub guzek. Jednak powi??kszaj??ce si?? zasinienie w??tym miejscu mariia jest normalne i??nale??y to zg??osi?? lekarzowi. Je??li zauwa??ysz, ??e przy naci??ciu zbiera si?? krew, skontaktuj si?? z??lekarzem. Je??li dojdzie do niekontrolowanego krwawienia z??t??tnicy, natychmiast zg??o?? si?? na ostry dy??ur do szpitala. Zw??aszcza je??li przyjmujesz leki rozrzedzaj??ce krew. S?? to na przyk??ad aspiryna, klopidogrel lub warfaryna. ??? Stosuj zdrow?? diet??. Upewnij si??, ??e mariia spo??ywasz du??o t??uszczu, jorge czy cholesterolu. Popro?? lekarza o??porady dietetyczne. ??? Przesta?? pali??. Zapisz si?? do programu pomagaj??cego rzuci?? palenie lub popro?? lekarza o??pomoc w??tym zakresie. Programy pomagaj??ce rzuci?? palenie mog?? uratowa?? Ci ??ycie. ?wicz, je??hansa stewart to zaleci. By?? mo??e leyessy zaleci Ci udzia?? w??programie kardiorehabilitacyjnym. Program kardiorehabilitacyjny to program ??wicze??, w??ramach kt??ramya wykwalifikowany personel medyczny nadzoruje Twoje post??py i??obci?enie serca podczas ??wicze??. Zapytaj inokarza, mel zapisa?? si?? do takiego programu. ??? Mariia p??ywaj ani mariia k??p si??, cindy stewart Ci na to mariia pozwoli. Mo??esz wzi? prysznic dzie?? po zabiegu. Zadbaj, navi miejsce wk??ucia by??o czyste i??suche. Dzi??ki temu ranka po naci??ciu mariia b??dzie wilgotna, co zwi??ksza ryzyko zaka??enia, a??sk??ra i??t??tnica szybciej si?? zagoj??. ??? Upewnij si??, ??e przestrzegasz wszystkich zalece?? po zabiegu.? Dalsze post??powanie ??? Um??w si?? na wizyt?? kontroln?? zgodnie z??zaleceniami personelu. Zwykle po angioplastyce lub wszczepieniu stentu zalecana jest kontrola po 2 do 4??tygodniach. ??? Um??w si?? aracely??e na coroczn?? kontrol??. Chodzi o??to, navi upewni?? si??, ??e wszystko jest w??porz??dku i?e mariia pojawi??y si?adne nowe objawy. ??? Mariia czekaj na wizyt?? kontroln??, je??li zapisane leki mariia dzia??aj?? albo masz objawy zwi??tg z??sercem. ?? Kiedy szuka?? porady medycznej Zadzwo?? do lekarza w przypadku wyst??pienia kt??regokolwiek z poni??szych objaw??w: ??? B??l w??klatce piersiowej ??? Ci??g??y lub narastaj??cy b??l lub dr??twienie nogi ??? Temperatura wynosz??ca b??d?? przekraczaj??ca 100,4??F ( 38,0??C) lub wed??ug wskaza?? lekarza ??? Objawy infekcji. S?? to za czerwienienie, obrz??k, wyciek wydzieliny lub ciep??rotary lithographic press operator w??miejscu naci??nelida. ??? P??ytki oddech ??? Nelida jest zimna w??dotyku lub niebieskawa ??? Krwawienie, zasinienie lub mocny obrz??k w??miejscu w??o??enia cewnika ??? Krew w??moczu ??? Czarny lub smolisty stolec ??? Ka??de nietypowe krwawienie ? [employer] All rights reserved. This information is not intended as a substitute for professional medical care. Always follow your healthcare professional's instructions. ?? * Lara Sánchez RN: PERFORM Event Display: Patient Education Leaflets Authored Date: Surgery Radial Cath Approach Discharge Instructions ?? 278 Radial Cath Approach Discharge Instructions ?? Activity Take it easy the rest of the day. Limit your activity on the affected side.?? Act as if your arm is broken for 24 hours. No lifting with affected arm for 24 hours. No pushing or pulling with the affected arm. Do not reach or lift with the affected arm. Do not place excessive pressure on the wrist. ?? Precautions Due to intravenous sedation: It is recommended that someone stay with you for the first night after your procedure. Do not drive or operate hazardous machinery for 24 hours. Do not make legal decisions for 24 hours. Avoid alcohol for 24 hours. Unless directed otherwise, keep yourself hydrated. ?? Dressing/Incision Care You may remove the dressing 24 hours after your procedure. Replace with band aid for an additional 24 hours. You may shower and cleanse the site with soap & water then pat dry. Avoid submersion of site in water x 5 days. Cover the with a clean band aid daily until site is healed. If the band aid becomes soiled, replacewith a clean new one. Do not apply any ointments, lotions, gels or powders to the puncture site. ?? When to contact your doctor If any of the following signs of infection occur: Fever greater than 100 degrees F Increased pain Drainage, redness or warmth at puncture site Tingling of the fingers and hand that last longer than 3 days Slight bubble of blood or bleeding from site: apply manual pressure and notify your doctor ?? Emergency situations: Bleeding from the site that will not stop: apply manual pressure and notify your doctor Profuse bleeding streaming from the puncture site: Apply manual pressure and notify your doctor immediately If your hand becomes bluish, cold to the touch, or painful, notify your doctor immediately or go toEmergency Department. For these emergent situations: If unable to contact your physician, call 911. ?? * Lara Sánchez RN: PERFORM Event Display: Patient Education Leaflets Authored Date: Procedural Sedation, Recovery (Adult) ?? [id number] Rekonwalescencja po znieczuleniu do zabiegu (sendy??li) Podano Ci do??ylnie lek, kt??ry pozwoli?? Ci zasn? podczas zabiegu. Mog??o to obejmowa?? kip??wno lek przeciwb??mariana, mel i nasenny. Mog?? wyst??pi?? dzia??santa niepo?db, takie mel nudno??ci,zm??czenie lub niestabilno? przez okres do 24 godzin. Mog?? r??wnie?? wyst??pi?? zawroty g??owy. Leczenie w??domu Przestrzegaj poni??szych wskaz??wek po powrocie do domu: ??? Przez kolejne 8 godzin lub d??u??ej popro?? zaufan?? osob?? doros?, navi ci?? pilnowa??a. Ta osoba powinna upewni?? si??, ??e Tw??j santa si?? mariia pogarsza i zapewni?? Ci bezpiecze??stwo. ??? Przez kolejne 24 godziny mariia pij alkoholu. ??? W ci??gu najbli??szych 24 godzin mariia prowad?? samochodu, mariia obs??uguj niebezpiecznych maszyn, mariia podejmuj wa??nych decyzji s??u??bowych ani osobistych. ??? Zachowaj szczeg??ln?? ostro??no? podczas chodzenia i poruszania si??, gdy?? zachodzi wysokie ryzyko upadku. ??? Post??puj zgodnie z otrzymanymi instrukcjami dotycz??cymi jedzenia i picia. ??? Upewnij si??, ??e przestrzegasz wszystkich zalece?? po zabiegu. Uwaga: Lekarz mo??e zaleci??, navi w ci??gu najbli??szych 4 godzin mariia przyjmowa?? doustnie ??adnychlek??w przeciwb??lowych lub nasennych. Te leki mog?? wchodzi?? w reakcj?? z lekami otrzymanymi w szpitalu. Mo??e to wywo??a?? znacznie silniejsz?? reakcj?? ni?? zwykle. ?? Kontrola stanu zdrowia Kontrola u lekarza zgodnie z zaleceniami. ?? Kiedy szuka?? porady medycznej Popro?? kogo?? o zadzwonienie do lekarza lub niezw??ocznie uzyskaj porad?? medyczn??, je??li wyst??pi jedna z nast??puj??cych sytuacji: ??? Nasilaj??ca si?? ospa??o? Nasilaj??ce si?? uczucie s??abo??ci lub zawroty g??owy ??? Powtarzaj??ce si?? wymioty ??? Twoja mowa jest niewyra??na, a inni mariia mog?? Ci?? zrozumie??. ??? Intensywny lub nieustaj??cy b??l po zabiegu, kt??ramya mariia ??agodz?rodki przeciwb??lowe (je??li zosta??y przepisane) ??? Gor??czka ??? Nowa wysypka ?? Zadzwo?? pod numer 911 Popro?? kogo?? o zadzwonienie pod numer 911 , je??li lisaobserwujesz kt??rykolwiek z poni??szych objaw??w: ??? Problemy z oddychaniem ??? Problemy z prze??ykaniem ??? B??l w??klatce piersiowej ??? Utrata przytomno??ci lub je??li mariia mo??na Ci?? obudzi? [employer]. All rights reserved. This information is not intended as a substitute for professional medical care. Always follow your healthcare professional's instructions. ?? Patient Care team information Care Team Personnel Name: Traci Salinas MD Position: [facility] Physician - Primary Care Member Role: PCP Address: [address] Telecom: Name: Rufus Castro RN Position: [facility] RN Member Role: Primary Care Nurse Insurance Providers Guarantor name: KEYONNA Health Plan Information #: 1 Payer: [facility] PPO [employer] ADV Member Number: [id number] Policy Number: NA Group Number: [id number] Health Plan Information #: 2 Payer: [facility] HEALTHC[employer] SUP Member Number: [id number] Policy Number: KEYONNA Group Number: [id number]
== END 2024-04-28 07:33 | disposition home or self-care (01) ==
LOC: HO.LAB 07:32
PROVIDERS: Internal Medicine Cardiovascular Disease; PCP Internal Medicine; Visit Provider Internal Medicine
DX: I48.0 Paroxysmal atrial fibrillation (principal); I10 Essential (primary) hypertension; E11.9 Type 2 diabetes mellitus without complications; R94.39 Abnormal result of other cardiovascular function study
CPT/HCPCS: 36415; 80048; 80053; 80061; 82043; 82570; 83036; 83540; 85025; 85027; 85610

== ENCOUNTER → 2024-05-01 23:59 | Outpatient (BNV) | payer MEDICARE, MEDICAID, SELFPAY | PROVIDERS: PCP Internal Medicine; Visit Provider Internal Medicine Cardiovascular Disease | DX: I20.89 Other forms of angina pectoris (principal) | CPT/HCPCS: 93458; 99152 ==

== ENCOUNTER 2024-05-03 11:13 | Outpatient (AMB) | payer MEDICARE, MEDICAID, SELFPAY ==
[2024-05-03 11:18] VITALS: BP 134/72; PULSE 84; O2SAT 97; BMI 29.9
--- NOTE | 2024-05-03 11:18 | MHC.PC.OV ---
Vital Signs 05/03/24 11:18 Height 5 ft 1 in Weight 158 lb BMI 29.9 BP 134/72 Blood Pressure Location Lt brachial Position Sitting Pulse 84 Pulse Source Pulse Oximeter Pulse Oximetry (%) 97 Oxygen Delivery Method Room Air Intake Visit Reasons: Annual PE - see comments Intake Note: Pt is here today for PE. Allergies No Known Allergies [No Known Allergies*] Allergy (Verified 05/03/24 11:19) Medication List - Last Reconciled 05/03/24 by Traci Salinas MD amlodipine 5 mg PO DAILY apixaban (Eliquis) 5 mg PO BID 90 days aspirin (Adult Low Dose Aspirin) 81 mg PO DAILY atorvastatin 80 mg PO DAILY blood sugar diagnostic ([employer] Verio test strips) 1 strip miscellaneous DAILY blood-glucose meter ([employer] Verio Meter) As directed calcium carbonate 1 tab PO DAILY cholecalciferol (vitamin D3) 25 mcg PO DAILY ezetimibe (Zetia) 10 mg PO DAILY ferrous sulfate 325 mg PO DAILY isosorbide mononitrate ER 30 mg PO DAILY lancets (Site Lockuch Delica Lancets) Test blood sugar once a day losartan 100 mg PO DAILY metformin 500 mg PO BID metoprolol tartrate 25 mg PO BID vitamins A,C,T-hxdk-ejswdd 4,296 mcg-226 mg-90 mg (PreserVision AREDS) 1 cap PO BID Tobacco use date assessed: 05/03/24 Fall risk assessment: No Falls in past year Last assessed Fall Risk: 05/03/24 Dental Screening Dental Screen Date: 07/21/23 HPI Annual PE - see comments HPI Details Patient presents for a physical. She underwent cardiac catheterization for positive stress test 2 days ago: [facility] Medical History (Updated 05/03/24 @ 12:52 by Traci Salinas MD) Renal mass, left Lobular breast cancer Abnormal mammogram of left breast Annual physical exam Paroxysmal A-fib Hyperlipidemia CAD (coronary artery disease) HTN (hypertension) Diabetes Surgical History Hx of cataract surgery History of section History of breast biopsy H/O colonoscopy Family History Father No problems noted. Mother No problems noted. Son No problems noted. Social History Household Members: Spouse Housing: House Alcohol intake: never Patient Tobacco Use Status: Never used Tobacco e-Cigarette/Vaping Use: Never Used service: No Current occupational status: retired Cognitive needs: No Hearing needs: No Vision needs: Yes Questionnaire PHQ-9 Over the last 2 weeks, how often have you been bothered by any of the following problems? 1. Little interest or pleasure in doing things: not at all 2. Feeling down, depressed, or hopeless: not at all 3. Trouble falling or staying asleep, or sleeping too much: not at all 4. Feeling tired or having little energy: not at all 5. Poor appetite or overeating: not at all 6. Feeling bad about yourself - or that you are a failure or have let yourself or your family down: not at all 7. Trouble concentrating on things, such as reading the newspaper or watching television: not at all 8. Moving or speaking so slowly that other people could have noticed. Or the opposite - being so fidgety or restless that you have been moving around a lot more than usual: not at all 9. Thoughts that you would be better off or of hurting yourself in some way: not at all Total score: 0 Depression Screening Interpretation: Negative Depression Screening Done: Yes 29969 - PHQ-9 Billing: Yes Source: Developed by Drs. Stuart Hu, Gloria Patel, Juan A Maya and colleagues, with an educational meka from [email or web address]. Thrive Questionnaire Date Thrive assessed: 05/03/24 I am a: Patient What is your living situation today?: I have a steady place to live Within the past 12 months, did the food you bought not last and you didn't have the money to get more?: Never true Within the past 12 months, did you worry whether your food would run out before you got money to buy more?: Never true Do you have trouble paying for medicines?: No Do you have trouble getting transportation to medical appointments?: No Do you have trouble paying your heating and electricity bill?: No Do you have trouble taking care of your child, family member or friend?: No Do you have trouble with day-to-day activities such as bathing, preparing meals, shopping, managing finances, etc.?: No Are you currently unemployed and looking for a job?: No Are you interested in more education?: No Please select the resources that you would like help with: None THRIVE Score: 0 SARAH-7 AMB Questionnaire SARAH-7 Date SARAH - 7 assessed: 05/03/24 Feeling nervous, anxious, or on edge: 0 = Not at all Not being able to stop or control worryin = Not at all Worrying too much about different things: 0 = Not at all Trouble relaxin = Not at all Being so restless that it is hard to sit still: 0 = Not at all Becoming easily annoyed or irritable: 0 = Not at all Feeling afraid as if something awful might happen: 0 = Not at all Total SARAH-7 score (0-4 normal; 5-9 mild; 10-14 moderate; 15-21 severe): 0 Source: Developed by Drs. Stuart Hu, Gloria Patel, Juan A Maya and colleagues, with an educational meka from [employer]. SARAH-7 Assessment Billing SARAH-7 Assessment Tool: SARAH-7 Assessment 31126 Review of Systems Const All systems reviewed & are unremarkable except as noted in HPI and below Eyes Reports no additional complaints ENT Reports no additional complaints Card Reports no additional complaints Resp Reports no additional complaints GI Reports no additional complaints Reports no additional complaints Physical exam (Primary Care) Vital Signs: Last Vital Signs Pulse 84 05/03/24 11:18 BP 134/72 05/03/24 11:18 Pulse Ox 97 05/03/24 11:18 Oxygen Delivery Method Room Air 05/03/24 11:18 BMI result Body Mass Index 29.9 Tobacco/Smoking Status: Tobacco use Status Tobacco use date assessed 05/03/24 05/03/24 11:20 Patient Tobacco Use Status Never used Tobacco 05/03/24 11:18 e-Cigarette/Vaping Use Never Used 05/03/24 11:18 PHQ-9: PHQ-9 Score PHQ-9: Total score 0 05/03/24 11:45 Depression Screening Interpretation: Negative Thrive Assessment: Date of Thrive Assessment Date Thrive assessed 05/03/24 05/03/24 11:45 Const General: no acute distress HENMT Head: Yes normal to inspection Ears: hearing grossly normal bilaterally Face and sinus: Yes normal facial exam Throat: Yes posterior oropharynx normal Eyes General: appearance normal, both eyes and all related structures Neck Neck: Yes supple Resp Effort & Inspection: normal respiratory effort Auscultation: clear to auscultation bilaterally Cardio Rhythm: regular rhythm Heart sounds: S1 normal heart sound present and S2 normal heart sound present GI Inspection: Yes normal to inspection Palpation (GI): Soft to palpation Percussion: Yes normal to percussion Auscultation: normal bowel sounds Coding Level of Care Code Est Pt Prev Care >65y(76012) Diagnoses Hyperlipidemia E78.5 Paroxysmal A-fib I48.0 HTN (hypertension) I10 Diabetes E11.9 Cancer of left kidney C64.2 Annual physical exam Z00.00 CAD (coronary artery disease) I25.10 Lobular breast cancer C50.919 Additional Codes SARAH-7 Assessment Billing - SARAH-7 Assessment Tool: SARAH-7 Assessment 02305 ([id number]) PHQ-9 - 68192 - PHQ-9 Billing: Yes ([id number]) Assessment & Plan Assessment & Plan (1) Hyperlipidemia: Code(s): E78.5 - Hyperlipidemia, unspecified Category: Medical Plan: Continue statin (2) Paroxysmal A-fib: Comment: Episode of AFib post [facility] Code(s): I48.0 - Paroxysmal atrial fibrillation Category: Medical Plan: Continue Eliquis and metoprolol (3) HTN (hypertension): Comment: BP goal less than 130/80 Code(s): I10 - Essential (primary) hypertension Category: Medical Plan: Continue current medications (4) Diabetes: Comment: A1C <7 Code(s): E11.9 - Type 2 diabetes mellitus without complications Category: Medical Plan: A1c is 6.2, continue ADA diet regular exercise increase physical activity follow-up in 3 months with a fasting labs before (5) Cancer of left kidney: Comment: left lower lobe 3 cm mass , bx renal cell ca dxd 08/11, s/p cryoablation 10/12, stable on US 02/12, f/u [facility] Dr. Deng Code(s): C64.2 - Malignant neoplasm of left kidney, except renal pelvis Category: Medical Plan: Follow-up with urology (6) Annual physical exam: Code(s): Z00.00 - Encounter for general adult medical examination without abnormal findings Category: Medical Plan: Well-balanced diet regular physical activity discussed with the patient (7) CAD (coronary artery disease): Comment: s/p DEYANIRA to cx for NSTEMI 05/2019 cardiac cath RCA chronic occluded, cardiac cath 04/2024 : RCA occluded, patent LCx stent, LAD minimal luminal irregularities Code(s): I25.10 - Atherosclerotic heart disease of [place] coronary artery without angina pectoris Category: Medical Plan: Continue current medications follow-up with the Cardiology (8) Lobular breast cancer: Comment: 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 Wilson at [facility] Code(s): C50.919 - Malignant neoplasm of unspecified site of unspecified female breast Category: Medical Plan: Follow-up with oncology Orders: Orders Complete Blood Count Auto Diff 3 Months E11.9 - Type 2 diabetes mellitus without complications, E78.5 - Hyperlipidemia, unspecified, I10 - Essential (primary) hypertension, I48.0 - Paroxysmal atrial fibrillation Vitamin B12 and Folate 3 Months E11.9 - Type 2 diabetes mellitus without complications, E78.5 - Hyperlipidemia, unspecified, I10 - Essential (primary) hypertension, I48.0 - Paroxysmal atrial fibrillation Lipid Panel 3 Months E11.9 - Type 2 diabetes mellitus without complications, E78.5 - Hyperlipidemia, unspecified, I10 - Essential (primary) hypertension, I48.0 - Paroxysmal atrial fibrillation Microalbumin, Random (w Creat) 3 Months E11.9 - Type 2 diabetes mellitus without complications, E78.5 - Hyperlipidemia, unspecified, I10 - Essential (primary) hypertension, I48.0 - Paroxysmal atrial fibrillation Comprehensive [place]. Panel Fast 3 Months E11.9 - Type 2 diabetes mellitus without complications, E78.5 - Hyperlipidemia, unspecified, I10 - Essential (primary) hypertension, I48.0 - Paroxysmal atrial fibrillation Hemoglobin A1c 3 Months E11.9 - Type 2 diabetes mellitus without complications, E78.5 - Hyperlipidemia, unspecified, I10 - Essential (primary) hypertension, I48.0 - Paroxysmal atrial fibrillation Medications: New losartan 100 mg PO DAILY 90 tabs 3RF Changed From metoprolol tartrate 25 mg PO DAILY 90 tabs 3RF To metoprolol tartrate 25 mg PO BID 180 tabs 3RF Discontinued losartan Discontinued Reason: Doctor's Order 50 mg PO DAILY 90 tabs 3RF
== END 2024-05-03 12:53 | disposition home or self-care (01) ==
PROVIDERS: PCP Internal Medicine; Visit Provider Internal Medicine
DX: Z00.00 Encounter for general adult medical examination without abnormal findings (principal); I48.0 Paroxysmal atrial fibrillation; E11.69 Type 2 diabetes mellitus with other specified complication; C64.2 Malignant neoplasm of left kidney, except renal pelvis; C50.919 Malignant neoplasm of unspecified site of unspecified female breast; I10 Essential (primary) hypertension; E78.5 Hyperlipidemia, unspecified; I25.10 Atherosclerotic heart disease of native coronary artery without angina pectoris

== ENCOUNTER → 2024-05-03 11:13 | Outpatient (BNVA) | payer MEDICARE, MEDICAID, SELFPAY | PROVIDERS: PCP Internal Medicine; Visit Provider Internal Medicine | DX: Z00.00 Encounter for general adult medical examination without abnormal findings (principal); E78.5 Hyperlipidemia, unspecified; I48.0 Paroxysmal atrial fibrillation; I10 Essential (primary) hypertension; E11.9 Type 2 diabetes mellitus without complications; C64.2 Malignant neoplasm of left kidney, except renal pelvis; I25.10 Atherosclerotic heart disease of native coronary artery without angina pectoris; C50.919 Malignant neoplasm of unspecified site of unspecified female breast | CPT/HCPCS: 96127; 99397 ==

== ENCOUNTER → 2024-05-11 09:45 | Outpatient (BNV) | payer MEDICARE, MEDICAID, SELFPAY | PROVIDERS: PCP Internal Medicine; Visit Provider Internal Medicine | DX: R92.323 Mammographic fibroglandular density, bilateral breasts (principal); Z85.3 Personal history of malignant neoplasm of breast | CPT/HCPCS: 77066; G0279 ==

== ENCOUNTER 2024-05-11 09:51 | Outpatient (REF) | payer MEDICARE, MEDICAID, SELFPAY ==
--- NOTE | ~2024-05-11 | MM_ITS ---
EXAMINATION: MM DIAGNOSTIC DIGITAL BREAST TOMOSYNTHESIS, BILATERAL CLINICAL INFORMATION: History of left breast invasive ductal carcinoma status post lumpectomy 2021. COMPARISON: Mammography: Comparison is made with relevant prior exams. TECHNIQUE: Digital breast mammography with tomosynthesis is performed in both the craniocaudal and mediolateral oblique views along with computer-aided detection (CAD). FINDINGS: There are scattered areas of fibroglandular density (ACR BI-RADS breast composition Category b). Left lumpectomy changes are stable. There are no significant masses, abnormal calcifications, or other abnormalities. Results are provided to the patient at time of visit by the technologist. MM/MM tomosynthesis diagnostic BI IMPRESSION: There are no significant changes from prior study. ASSESSMENT: BI-RADS BI-RADS 2 - Benign Findings RECOMMENDATION: 1 year F/U This patient's information was entered into a reminder system with a target due date for their next mammogram. Electronically signed by: Zaida Cortes DO 05/11/2024 10:54 AM [facility]
== END 2024-05-11 09:52 | disposition home or self-care (01) ==
LOC: HO.MAMMO 09:51
PROVIDERS: PCP Internal Medicine; Visit Provider Internal Medicine
DX: R92.323 Mammographic fibroglandular density, bilateral breasts (principal); C50.919 Malignant neoplasm of unspecified site of unspecified female breast
CPT/HCPCS: 77062; 77066

== ENCOUNTER 2024-06-20 10:33 | Outpatient (AMB) | payer MEDICARE, MEDICAID, SELFPAY ==
[2024-06-20 10:37] VITALS: BP 140/70; PULSE 72; BMI 30.9
--- NOTE | 2024-06-20 10:37 | A.OFFVIS_ITS ---
Vital Signs 06/20/24 10:37 Height 5 ft 1 in Weight 163 lb 9.328 oz BMI 30.9 BP 140/70 H Blood Pressure Location Lt brachial Position Sitting Pulse 72 Pulse Source Pulse Oximeter Intake Visit Reasons: 3 mth f/up/stress echo Intake Note: 3 mth f/up/stress echo/ numbing of hands and feet Dry Chain Puller Required: Yes Dry Chain Puller Language: Peruvian Dry Chain Puller Name: shai/Tiffani/[id number] Accompanied by: Self / Same As Patient Allergies No Known Allergies [No Known Allergies*] Allergy (Verified 05/03/24 11:19) Medication List - Last Reconciled 06/20/24 by Aidan Oliver MD amlodipine 5 mg PO DAILY apixaban (Eliquis) 5 mg PO BID 90 days aspirin (Adult Low Dose Aspirin) 81 mg PO DAILY atorvastatin 80 mg PO DAILY blood sugar diagnostic ([employer] Verio test strips) 1 strip miscellaneous DAILY blood-glucose meter (Stockpile Verio Meter) As directed calcium carbonate 1 tab PO DAILY cholecalciferol (vitamin D3) 25 mcg PO DAILY ezetimibe (Zetia) 10 mg PO DAILY ferrous sulfate 325 mg PO DAILY isosorbide mononitrate ER 30 mg PO DAILY lancets (Stockpile Delica Lancets) Test blood sugar once a day losartan 100 mg PO DAILY metformin 500 mg PO BID metoprolol tartrate 25 mg PO BID vitamins A,C,P-kpzk-ozvasu 4,296 mcg-226 mg-90 mg (PreserVision AREDS) 1 cap PO BID HPI Comments Details: 73-year-old female here for follow-up. She has history of coronary disease with previous NSTEMI for which she underwent left circumflex artery PCI. 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 Subsequent to that she developed atrial fibrillation and was started on Coumadin. She has been maintained on Plavix and Coumadin. Unfortunately she got diagnosed with left breast cancer and is undergoing chemotherapy. She is noted to be anemic and was also complaining of bright red blood per rectum specially when she is wiping at the end of passing stools. Story sounds more like hemorrhoids but due to these issues she was brought to the office for further assessment. Denying any chest pain or shortness of breath. Obviously quite stressed and depressed due to breast cancer and ongoing chemotherapy. 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 05/18/2023: She returns for follow-up. She is following with Oncology and has been stable. She is in need of cataract surgery. Denying any other symptoms currently. 09/19/23: She is here for follow-up. She has been doing well. No chest discomfort shortness of breath. Taking medications regularly. She is stable from breast cancer viewpoint. 03/21/2024: She is here for follow-up. She is complaining of some shortness of breath with activity as well as upper chest discomfort. She is saying this lasts for 10 minutes and then gets better. 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 06/20/2024: She is here for follow-up. She underwent cardiac catheterization recently because she had hypotension during exercise stress test. We did not notice any significant disease in the left main. OM stent was open and she had known RCA [employer] HELPER which was unchanged. On follow-up she is denying any significant symptoms other than numbness and tingling in her hands and feet since she had chemotherapy. [facility] Medical History (Updated 06/20/24 @ 10:57 by Aidan Oliver MD) Renal mass, left Lobular breast cancer Abnormal mammogram of left breast Annual physical exam Paroxysmal A-fib Hyperlipidemia CAD (coronary artery disease) HTN (hypertension) Diabetes Surgical History Hx of cataract surgery History of section History of breast biopsy H/O colonoscopy Family History Father No problems noted. Mother No problems noted. Son No problems noted. Social History Household Members: Spouse Housing: House Alcohol intake: never Patient Tobacco Use Status: Never used Tobacco e-Cigarette/Vaping Use: Never Used service: No Current occupational status: retired Cognitive needs: No Hearing needs: No Vision needs: Yes Review of Systems Const Denies chills, Denies fatigue, Denies fever(s), Denies frequent falls, Denies weakness, Denies weight gain and Denies weight loss ENT Denies dizziness Card Denies chest pain, Denies leg edema, Denies lightheadedness, Denies palpitations, Denies dyspnea and Denies dyspnea on exertion Resp Denies cough, Denies dyspnea and Denies dyspnea on exertion GI Denies hematochezia Musc Denies abnormal gait, Denies muscle weakness, Reports numbness, Denies radiating pain into limb and Denies tingling Neuro Denies abnormal gait, Denies dizziness, Denies frequent falls, Reports numbness, Denies tingling and Denies weakness Endo Denies fatigue and Denies palpitations Physical Exam Vital Signs: Last Vital Signs Pulse 72 06/20/24 10:37 BP 140/70 H 06/20/24 10:37 BMI result Body Mass Index 30.9 GENERAL APPEARANCE: in no acute distress, pleasant. NECK: no carotid bruit, no jugular venous distention. SKIN: no suspicious lesions, warm and dry. HEART: no murmurs, regular rate and rhythm. LUNGS: clear to auscultation bilaterally. ABDOMEN: soft, nontender. EXTREMITIES: no edema. PERIPHERAL PULSES: equal. NEUROLOGIC: No gross deficits, AAO X 3 Assessment & Plan Assessment & Plan (1) HTN (hypertension): Comment: BP goal less than 130/80 Code(s): I10 - Essential (primary) hypertension Category: Medical (2) Stable angina: Code(s): I20.89 - Other forms of angina pectoris Category: Medical Plan Pleasant 73 year female who is here for follow-up. She has known history of coronary disease with previous OM PCI and RCA [employer] HELPER. Recently she was complaining of dyspnea with activities underwent exercise stress test. She had hypotension during exercise and we took her back for repeat angiogram to rule out any left main stenosis on multivessel disease. She had mild disease in the LAD and known [employer] HELPER of right coronary artery with [id number] collaterals. Her stent in the OM was patent without any significant ISR. Coronary angiogram did not explain her hypotension during exercise stress test. She has done well since then. Main complaint is numbness of hand and feet since the chemotherapy. I have advised her to discuss this with her oncologist. She should take multivitamins regularly. Follow-up with us in 4 months. Thank you for allowing me to participate in the care of your patient. Please feel free to contact me if you have any questions. Coding Level of Care Code Est Pt Level 4 (19876) Diagnoses HTN (hypertension) I10 Stable angina I20.89
--- OUTSIDE RECORDS SUMMARY | 2024-06-20 12:41 | XMS_ITS | Clinical Summary ---
Author Organization [facility] Address [address] [place] [address] Care Team Providers Care Shaving Machine Operator Name Role Phone Traci Salinas MD Primary Care Provider [phone] Allergies No known active allergies Medications Medication Sig Dispensed Refills Start Date End Date Status amLODIPine (NORVASC) tablet 5 mg Take 1.5 tablets (7.5 mg total) by mouth daily. 0 06/27/2021 Active atorvastatin (LIPITOR) tablet 80 mg Take 1 tablet (80 mg total) by mouth daily. 0 07/30/2021 Active Calcium Antacid Extra Strength 750 MG chewable tablet Chew 1 tablet (750 mg total) by mouth daily. 0 06/29/2021 Active ezetimibe (ZETIA) tablet 10 mg Take 1 tablet (10 mg total) by mouth daily. 0 06/11/2021 Active isosorbide mononitrate (IMDUR) 30 MG 24 hr tablet Take 1 tablet (30 mg total) by mouth daily. 0 06/15/2021 Active losartan (COZAAR) 100 MG tablet Take 1 tablet (100 mg total) by mouth daily. 0 06/26/2021 Active metFORMIN (GLUCOPHAGE) tablet 500 mg Take 1 tablet (500 mg total) by mouth daily. 0 06/19/2021 Active metoprolol tartrate (LOPRESSOR) 25 MG tablet Take 1 tablet (25 mg total) by mouth daily. 0 07/24/2021 Active lidocaine-prilocaine (EMLA) cream Apply 1/8 of tube to port prior to chemotherapy. 30 g 1 08/11/2021 Active pregabalin (LYRICA) capsule 50 mg Take 1 capsule (50 mg total) by mouth 3 (three) times a day. 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 10/02/2021 Oral candidiasis 08/24/2021 Renal mass, left 08/24/2021 Malignant neoplasm of upper- outer quadrant of left breast in female, estrogen receptor negative 08/03/2021 Cancer Staging:Clinical stage from 07/22/2021:Stage IIB(cT2, cN0, cM0, G3, ER-, [place]-, HER2-) - Signed by Sowmya Ackerman MD on 08/03/2021 Coronary artery disease invo lving [place] coronary artery of [place] heart without angina pectoris 08/03/2021 Stented coronary artery 08/03/2021 Immunizations Name Administration Dates Next Due Covid-19 (Pfizer 12+) Bivalent 04/03/2022 Family History Medical History Relation Name Comments Coronary artery disease Mother Diabetes Mother Diabetes Sister Relation Name Status Comments Mother Sister Social History Tobacco Use Types Packs/Day Years Used Date Smoking Tobacco: Former Cigarettes Smokeless Tobacco: Never Comments:socially when very young Alcohol Use Standard Drinks/Week Comments Never 0 (1 standard drink = 0.6 oz pur e alcohol) Sex and Gender Information Value Date Recorded Sex Assigned at Female 02/10/2022 9:52 AM EDT Gender Identity Female 10/16/2021 11:05 AM EDT Sexual Orientation Straight 10/16/2021 11 :05 AM EDT Job Start Date Occupation Industry Not on file Not on file Not on file Last Filed Vital Signs Vital Sign Reading Time Taken Comments Blood Pressure 149/57 11/07/2023 10:32 AM EDT Pulse 72 11/07/2023 10:32 AM EDT Temperature 37.2 ??C (99 ??F) 11/07/2023 10:32 AM EDT Respiratory Rate 18 09/22/2022 11:32 AM EDT Oxygen Saturation 99% 11/07/2023 10:32 AM EDT Inhaled Oxygen Concentration - - Weight 71.3 kg (157 lb 3.2 oz) 11/07/2023 10:32 AM EDT Height 154.9 cm (5' 1 ) 11/07/2023 10:32 AM EDT Body Mass Index 29.7 11/07/2023 10:32 AM EDT Plan of Treatment Health Maintenance Due Date Last Done Comments Hepatitis C Screening 1950 Pneumococcal Vaccine (1 of 2 - PCV) 12/18/1955 Depression Screening 1961 BMI Counseling 12/18/1967 Preventative Health Evaluation 12/18/1967 Shingrix-Zoster Vaccine (1 of 2) 1968 Colon Cancer Screening (Colonoscopy) 1994 Breast Cancer Screening (Mammogram) 12/18/1999 Fall Risk Assessment 2014 Osteoporosis Screening (DEXA Scan) 2014 DTap / Tdap / Td (2 - Td or Tdap) 01/30/2020 010 COVID-19 Vaccine (2 - Pfizer risk series) 04/24/2022 04/03/2022 Influenza Vaccine (#1) 2024 01/29/2010 RSV Adult > 60+ Yrs or Pregn ant (1 - 1-dose 75+ series) 2024 Hepatitis B Vaccines Aged Out No long er eligible based on patient's age to complete this topic RSV Ped < 20 months Aged Out No longe r eligible based on patient's age to complete this topic Care Teams Shaving Machine Operator Relationship Specialty Start Date End Date Traci Salinas MD [address] [place] [address] PCP - General Marketing Assistant 07/31/21
--- OUTSIDE RECORDS SUMMARY | 2024-06-20 12:41 | XMS_ITS ---
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 Past Plans ONCOLOGY TREATMENT Plan Name Start Date Discontinue Date Treatment Medications Discontinue Reason Plan Provider Cycles [facility] OP Pembrolizumab + Paclitaxel + Carboplatin (AUC 1.5) weekly x 12, then Pembrolizumab + DDAC, then Pembrolizumab Maintenance (Neoadjuvant Breast Cancer) 022 01/28/2023 albuterol (PROVENTIL)CARBOplatin (PARAPLATIN) chemo infusion (by AUC)dexamethasone (DECADRON)dexamethason e (DECADRON) DOSE > 10 mg IVPBdiphenhydrAMINE (BENADRYL)diphenhydrAM INE (BENADRYL) IVPBEPINEPHrinefamotid ine (PEPCID)filgrastim-snd z (ZARXIO)fosaprepitant IV Piggybackhydrocortison e (SOLU-CORTEF) IVmeperidine (DEMEROL) 25 MG/MLondansetron (ZOFRAN-ODT)ondansetro n (ZOFRAN-ODT) 4 MGPACLitaxel (TAXOL) chemo infusionpalonosetron (ALOXI)pembrolizumab (KEYTRUDA) infusionprochlorperazi ne (COMPAZINE)Saline Flush 0.9 %sodium chloride (NS) 0.9 %sodium chloride 0.9% bolus (NS) Therapy Complete Sowmya Ackerman MD 17 of 17 cycles started Radiation Treatments * No radiation treatments are documented for this patient in [facility]. Treatments may have been administered in another system.
--- OUTSIDE RECORDS SUMMARY | 2024-06-20 12:41 | XMS_ITS | Clinical Summary ---
Author Organization [facility] Address [address] [place] [address] Care Team Providers Care General Internist And Physician Leader Name Role Phone Traci Salinas MD Primary Care Provider [phone] Allergies No known active allergies Medications Medication Sig Dispensed Refills Start Date End Date Status amLODIPine (NORVASC) 5 mg tablet Take 1.5 tablets (7.5 mg total) by mouth 1 (one) time each day. 06/17/2019 Active atorvastatin (LIPITOR) 80 mg tablet Take 1 tablet (80 mg total) by mouth 1 (one) time each day. 07/30/2021 Active calcium carbonate EX (Antacid Ext Str, calcium carb,) 300 mg (750 mg) chewable tablet Chew 1 tablet (750 mg total) by mouth daily. 06/29/2021 Active ezetimibe (ZETIA) 10 mg tablet Take 1 tablet (10 mg total) by mouth 1 (one) time each day. 06/11/2021 Active isosorbide mononitrate (IMDUR) 30 mg 24 hr tablet Take 1 tablet (30 mg total) by mouth 1 (one) time each day. 06/15/2021 Active lidocaine-prilocaine (EMLA) 2.5-2.5 % cream Apply 1/8 of tube to port prior to chemotherapy. 08/11/2021 Active losartan (COZAAR) 100 mg tablet Take 1 tablet (100 mg total) by mouth 1 (one) time each day. 06/26/2021 Active metFORMIN (GLUCOPHAGE) 500 mg tablet Take 1 tablet (500 mg total) by mouth 1 (one) time each day. 06/19/2021 Active metoprolol tartrate (LOPRESSOR) 25 mg tablet Take 1 tablet (25 mg total) by mouth 1 (one) time each day. 07/24/2021 Active pregabalin (LYRICA) 50 mg capsule Take 1 capsule (50 mg total) by mouth 3 (three) times a day. 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 10/02/2021 Oral mucositis 10/02/2021 Oral candidiasis 08/24/2021 Renal mass, left 08/24/2021 Coronary artery disease invo lving [place] coronary artery of [place] heart without angina pectoris 08/03/2021 Stented coronary artery 08/03/2021 Immunizations Name Administration Dates Next Due ReliSen (ages 12 & older) Bivalent, COVID-19 03/23 Surgical History Surgery Date Site/Laterality Comments SECTION PROCEDURE: MI DELIVERY ONLY OTHER SURGICAL HISTORY 2019 PROCEDURE: MI OPEN/PERQ PLACEMENT INTRAVASCULAR STENT INITIAL OTHER SURGICAL HISTORY 01/20/2022 Left PROCEDURE: MI MASTECTOMY PARTIAL; COMMENT: Left breast magnetic seed localized partial mastectomy, left axilla sentinel lymph node biopsy SECTION PROCEDURE: SECTION OTHER SURGICAL HISTORY PROCEDURE:OPEN/PERQ PLACEMENT INTRAVASCULAR STENT;COMMENT:2019 Medical History Medical History Date Comments 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/2008 DX:Unspecified disorder of l ipoid metabolism Heart disease, unspecified 08/31/2006 DX:He art disease, unspecified Diabetes mellitus type II, c ontrolled (CMS/HCC) 01/03/2010 DX:Diabetes mellitus type II , controlled (HCC) Essential hypertension, benign 07/20/2005 D X:Essential hypertension, benign Obesity, unspecified 12/30/2008 DX:Obesity, unspecified Glucose intolerance (impaire d glucose tolerance) 01/10/2010 DX:Glucose intolerance (impa ired glucose tolerance) Impaired glucose tolerance DX:Im paired glucose tolerance HTN (hypertension) DX:HTN (hyper tension) Type 2 diabetes mellitus (CMS/HCC) DX:Type 2 diabetes mellitus (HCC) Heart disease DX:Heart disease Coronary artery disease DX:Coron moises artery disease Anemia DX:Anemia Breast cancer (CMS/HCC) DX:Breas t cancer (HCC) Renal cell carcinoma of left kidney (CMS/HCC) 02/10/2022 DX:Renal cell carcinoma of l eft kidney (HCC) Family History Medical History Relation Name Comments Coronary artery disease Mother Diabetes Mother Diabetes Sister 1 Diabetes Sister 2 Relation Name Status Comments Father Alive Mother Sister 1 Sister 2 Social History Tobacco Use Types Packs/Day Years Used Date Smoking Tobacco: Former Smokeless Tobacco: Never Alcohol Use Standard Drinks/Week Comments Never 0 (1 standard drink = 0.6 oz pur e alcohol) Sex and Gender Information Value Date Recorded Sex Assigned at Not on file Gender Identity Not on file Sexual Orientation Not on file Obstetrics History Last Filed Vital Signs Vital Sign Reading Time Taken Comments Blood Pressure 149/57 11/07/2023 10:32 AM EDT Sitting Right arm Pulse 72 11/07/2023 10:32 AM EDT Temperature - - Respiratory Rate - - Oxygen Saturation - - Inhaled Oxygen Concentration - - Weight 71.3 kg (157 lb 3.2 oz) 11/07/2023 10:32 AM EDT Height 154.9 cm (5' 1 ) 11/07/2023 10:3 2 AM EDT Body Mass Index 29.7 11/07/2023 10:32 AM EDT Plan of Treatment Upcoming Encounters Date Type Department Care Team (Late st Contact Info) Description 07/06/2024 8:50 AM EST Appointment Radiology Department [address] [address] Health Maintenance Due Date Last Done Comments Pneumococcal Vaccine: 65+ Years (1 of 2 - PCV) 12/18/1956 Zoster Vaccines (1 of 2) 1968 DTaP,Tdap,and Td Vaccines (2 - Td or Tdap) 01/30/2020 01/29/2010 COVID-19 Vaccine (2 - Pfizer risk series) 04/24/2022 04/03/2022 Cholesterol Screening (Lipid Panel) 04/30/2022 Colorectal Cancer Screening: Colonoscopy 04/30/2022 Depression Screening 04/30/2022 Falls Risk Assessment 04/30/2022 Hepatitis C Screening 04/30/2022 Osteoporosis Screening (Bone Density Screening) 04/30/2022 Social Influencers of Health Screening 04/30/2022 Hypertension/CHF/CAD Annual BMP Blood Test 08/06/2023 08/05/2022 Influenza Vaccine (#1) 2024 01/29/2010 RSV Immunization Patients 60+ Years Old (1 - 1-dose 75+ series) 2024 Breast Cancer Screening 06/28/2025 06/28/19 24, 06/22/2022, 07/23/2021, Additional history exists HIB Vaccines Aged Out No longer eligi ble based on patient's age to complete this topic HPV Vaccines Aged Out No longer eligi ble based on patient's age to complete this topic Hepatitis A Vaccines Aged Out No long er eligible based on patient's age to complete this topic Hepatitis B Vaccines Aged Out No long er eligible based on patient's age to complete this topic IPV Vaccines Aged Out No longer eligi ble based on patient's age to complete this topic MMR Vaccines Aged Out No longer eligi ble based on patient's age to complete this topic Meningococcal ACWY Vaccine Aged Out N o longer eligible based on patient's age to complete this topic RSV Immunization Patients Under 20 months Aged Out No longer eligible based on patient's age to complete this topic Varicella Vaccines Aged Out No longer eligible based on patient's age to complete this topic Procedures Procedure Name Priority Date/Time Associated Diagnosis Comments DIAGNOSTIC MAMMOGRAPHY INCLUDING CAD BILATERAL Routine 06/28/2023 8:43 AM EST Encounter for screening mammogram for malignant neoplasm of breast ANNUAL BMP BLOOD TEST Routine 08/05/2022 from Last 3 Months or Most Recently Relevant to Health Maintenance Results * DIAGNOSTIC MAMMOGRAPHY INCLUDING CAD BILATERAL (06/28/2023 8:43 AM EST) Anatomical Region Laterality Modality Mammography 06/22/2022 9:30 AM EST Narrative 06/28/2023 9:10 AM EST This is a summary report. The complete report is available in the patient's medical record. If you cannot access the medical record, please contact the sending organization for a detailed fax or copy. Bilateral mammogram. History status post lumpectomy and radiation for the left breast cancer, 2 years follow-up. Full-field digital 2D C views and tomosynthesis of both breast were obtained with additional magnification views of the left breast in CC and MLO projections. ??Compared with priors. ??Reviewed with CAD. There are ??stable postlumpectomy/radiation changes in the left breast. ??There is no suspicious masses, microcalcifications or new areas of architectural distortion. Conclusions: Stable postlumpectomy/radiation changes in the left breast. ??No new suspicious abnormalities. ??Follow-up mammogram in 1 year at the time of the next annual screening. BI-RADS 2, benign findings. Procedure Note Rebekah Gutiérrez MD - 01/09/2024 This is a summary report. The complete report is available in thepatient's medical record. If you cannot access the medical record, pleasecontact the sending organization for a detailed fax or copy. Bilateral mammogram. History status post lumpectomy and radiation for the left breast cancer, 2years follow-up. Full-field digital 2D C views and tomosynthesis of both breast wereobtained with additional magnification views of the left breast in CC andMLO projections. Compared with priors. Reviewed with CAD. There are stable postlumpectomy/radiation changes in the left breast.There is no suspicious masses, microcalcifications or new areas ofarchitectural distortion. Conclusions: Stable postlumpectomy/radiation changes in the left breast.No new suspicious abnormalities. Follow-up mammogram in 1 year at thetime of the next annual screening. BI-RADS 2, benign findings. Traci Salinas MD IMG BI PROCEDURES * Annual BMP Blood Test (08/05/2022) Annual BMP Blood Test abstracted Historical Provider MD ELODIA Maya from Last 3 Months or Most Recently Relevant to Health Maintenance Care Teams General Internist And Physician Leader Relationship Specialty Start Date End Date Traci Salinas MD PCP - General Internal Medicine 07/30/21
== END 2024-06-20 10:56 | disposition home or self-care (01) ==
PROVIDERS: PCP Internal Medicine; Visit Provider Internal Medicine Cardiovascular Disease
DX: I10 Essential (primary) hypertension (principal); I20.89 Other forms of angina pectoris
CPT/HCPCS: 99214

== ENCOUNTER → 2024-06-20 10:33 | Outpatient (BNVA) | payer MEDICARE, MEDICAID, SELFPAY | PROVIDERS: PCP Internal Medicine; Visit Provider Internal Medicine Cardiovascular Disease | DX: I25.2 Old myocardial infarction (principal); I10 Essential (primary) hypertension; I20.89 Other forms of angina pectoris | CPT/HCPCS: 99212 ==

== ENCOUNTER 2024-08-13 06:53 | Outpatient (REF) | payer MEDICARE, MEDICAID, SELFPAY ==
[2024-08-13 10:21] LABS: MANUAL DIFF FLAG NO
[2024-08-13 10:29] LABS: Basophils Percent Auto 0.8 % (0-2); Eosinophils Absolute Auto 0.2 X10*3/uL (0.0-0.4); Lymphocytes Absolute Auto 1.6 X10*3/uL (1.2-4.9); Lymphocytes Percent Auto 33.1 % (20-40); Mean Corpuscular HGB Conc 32.4 g/dl (31.0-35.0); Mean Corpuscular Hemoglobin 29.8 pg (27.0-33.0); Mean Corpuscular Volume 92.1 fL (80.0-98.0); Monocytes Absolute Auto 0.5 X10*3/uL (0.1-1.2); Neutrophils Absolute Auto 2.6 x10*3/uL (2.0-8.3); Neutrophils Percent Auto 53.1 % (45-73); Platelet Count 206 X10*3/uL (160-400); Red Blood Count 3.69 X10*6/uL (4.20-5.50); Red Cell Distribution Width 13.7 % (11.0-16.0); White Blood Count 4.9 X10*3/uL (4.8-10.8)
[2024-08-13 10:38] LABS: Estimated Average Glucose 126 mg/dL; Hemoglobin A1C 120.0785 umol/L
[2024-08-13 11:10] LABS: Alanine Aminotransferase 18 U/L (0-31); Albumin Level 4.1 g/dL (3.5-5.0); Alkaline Phosphatase 92 U/L (39-117); Anion Gap 11 (12-20); Aspartate Amino Transferase 26 U/L (5-31); Bilirubin Total 0.7 mg/dL (0.0-1.0); Blood Urea Nitrogen 22 mg/dL (9-16); Calcium 9.4 mg/dL (8.4-10.2); Carbon Dioxide 24 mmol/L (22-29); Chloride 111 mmol/L (96-108); Cholesterol 95 mg/dL (<200); Estimated Glomerular Filt Rate 59; Glucose Fasting 116 mg/dL (60-99); HDL Cholesterol 31 mg/dL (>40); LDL Cholesterol Calculated 46 mg/dL (<100); Sodium 142 mmol/L (135-145); Total Protein 6.7 g/dL (6.5-8.0); Triglycerides 91 mg/dL (<150)
[2024-08-13 11:17] LABS: Vitamin B12 270 pg/mL (200-900)
[2024-08-13 11:28] LABS: Creatinine Urine 108.26 mg/dL; Microalbumin Urine < 5.0 mg/L
== END 2024-08-13 06:54 | disposition home or self-care (01) ==
LOC: HO.HMGCLDS 06:53
PROVIDERS: PCP Internal Medicine; Visit Provider Internal Medicine
DX: E78.5 Hyperlipidemia, unspecified (principal); I48.0 Paroxysmal atrial fibrillation; I10 Essential (primary) hypertension; E11.9 Type 2 diabetes mellitus without complications
CPT/HCPCS: 36415; 80053; 80061; 82043; 82570; 82607; 82746; 83036; 85025

== ENCOUNTER 2024-08-15 08:59 | Outpatient (AMB) | payer MEDICARE, MEDICAID, SELFPAY ==
[2024-08-15 09:02] VITALS: BP 116/64; PULSE 63; TEMP 36.7; O2SAT 98; BMI 30.6
--- NOTE | 2024-08-15 09:02 | MHC.PC.OV ---
Vital Signs 08/15/24 09:02 Height 5 ft 1 in Weight 162 lb BMI 30.6 BP 116/64 Blood Pressure Location Rt brachial Position Sitting Pulse 63 Pulse Source Pulse Oximeter Temp 98.0 F Temp Source Oral Pulse Oximetry (%) 98 Oxygen Delivery Method Room Air Intake Visit Reasons: 3 months follow up Intake Note: Pt is here today for 3 months follow up visit on DM and labs. Allergies No Known Allergies [No Known Allergies*] Allergy (Verified 08/15/24 09:20) Medication List - Last Reconciled 08/15/24 by Traci Salinas MD amlodipine 5 mg PO DAILY apixaban (Eliquis) 5 mg PO BID 90 days aspirin (Adult Low Dose Aspirin) 81 mg PO DAILY atorvastatin 80 mg PO DAILY blood sugar diagnostic ([employer] Verio test strips) 1 strip miscellaneous DAILY blood-glucose meter ([employer] Verio Meter) As directed calcium carbonate 1 tab PO DAILY cholecalciferol (vitamin D3) 25 mcg PO DAILY ezetimibe (Zetia) 10 mg PO DAILY ferrous sulfate 325 mg PO DAILY isosorbide mononitrate ER 30 mg PO DAILY lancets ([employer] Delica Lancets) Test blood sugar once a day metformin 500 mg PO BID metoprolol tartrate 25 mg PO BID valsartan 320 mg PO DAILY vitamins A,C,R-arrq-ktddiq 4,296 mcg-226 mg-90 mg ([employer]er[employer]ision AREDS) 1 cap PO BID Tobacco use date assessed: 08/15/24 Fall risk assessment: No Falls in past year Last assessed Fall Risk: 08/15/24 Dental Screening Dental Screen Date: 08/15/24 Did you have a dental visit in the last 12 months?: No Did you have a dental problem in the last 6 months where you did not have access to dental care?: No HPI 3 months follow up HPI Details Patient presents for the follow-up on hypertension hyperlipidemia type 2 diabetes coronary artery disease. Patient reports dyspnea on exertion when walking longer distance. She denies exercise-induced chest pain palpitations, PND orthopnea patient had negative stress test and coronary angiogram recently. [facility] Medical History (Updated 08/15/24 @ 09:52 by Traci Salinas MD) Renal mass, left Lobular breast cancer Abnormal mammogram of left breast Annual physical exam Paroxysmal A-fib Hyperlipidemia CAD (coronary artery disease) HTN (hypertension) Diabetes Surgical History Hx of cataract surgery History of section History of breast biopsy H/O colonoscopy Family History Father No problems noted. Mother No problems noted. Son No problems noted. Social History Household Members: Spouse Housing: House Alcohol intake: never Patient Tobacco Use Status: Never used Tobacco e-Cigarette/Vaping Use: Never Used service: No Current occupational status: retired Cognitive needs: No Hearing needs: No Vision needs: Yes Questionnaire PHQ-9 Over the last 2 weeks, how often have you been bothered by any of the following problems? 1. Little interest or pleasure in doing things: not at all 2. Feeling down, depressed, or hopeless: not at all 3. Trouble falling or staying asleep, or sleeping too much: not at all 4. Feeling tired or having little energy: not at all 5. Poor appetite or overeating: not at all 6. Feeling bad about yourself - or that you are a failure or have let yourself or your family down: not at all 7. Trouble concentrating on things, such as reading the newspaper or watching television: not at all 8. Moving or speaking so slowly that other people could have noticed. Or the opposite - being so fidgety or restless that you have been moving around a lot more than usual: not at all 9. Thoughts that you would be better off or of hurting yourself in some way: not at all Total score: 0 Depression Screening Interpretation: Negative Depression Screening Done: Yes 99590 - PHQ-9 Billing: Yes Source: Developed by Drs. Stuart Hu, Gloria Patel, Juan A Maya and colleagues, with an educational meka from [employer]. Thrive Questionnaire Date Thrive assessed: 08/15/24 I am a: Patient What is your living situation today?: I have a steady place to live Within the past 12 months, did the food you bought not last and you didn't have the money to get more?: Never true Within the past 12 months, did you worry whether your food would run out before you got money to buy more?: Never true Do you have trouble paying for medicines?: I choose not to answer this question Do you have trouble getting transportation to medical appointments?: I choose not to answer this question Do you have trouble paying your heating and electricity bill?: I choose not to answer this question Do you have trouble taking care of your child, family member or friend?: I choose not to answer this question Do you have trouble with day-to-day activities such as bathing, preparing meals, shopping, managing finances, etc.?: I choose not to answer this question Are you currently unemployed and looking for a job?: I choose not to answer this question Are you interested in more education?: I choose not to answer this question THRIVE Score: 0 AUDIT C Alcohol Use Questionnaire (AUDIT-C) 1. How often do you have a drink containing alcohol?: Never 3. How often do you have six or more drinks on one occasion?: Never Total Score: 0 SARAH-7 AMB Questionnaire SARAH-7 Date SARAH - 7 assessed: 08/15/24 Feeling nervous, anxious, or on edge: 0 = Not at all Not being able to stop or control worryin = Not at all Worrying too much about different things: 0 = Not at all Trouble relaxin = Not at all Being so restless that it is hard to sit still: 0 = Not at all Becoming easily annoyed or irritable: 0 = Not at all Feeling afraid as if something awful might happen: 0 = Not at all Total SARAH-7 score (0-4 normal; 5-9 mild; 10-14 moderate; 15-21 severe): 0 Source: Developed by Drs. Stuart Hu, Gloria Patel, Juan A Maya and colleagues, with an educational meka from [employer]. SARAH-7 Assessment Billing SARAH-7 Assessment Tool: SARAH-7 Assessment 24451 Review of Systems Const All systems reviewed & are unremarkable except as noted in HPI and below Eyes Reports no additional complaints ENT Reports no additional complaints Card Reports no additional complaints Resp Reports no additional complaints GI Reports no additional complaints Reports no additional complaints Physical exam (Primary Care) Vital Signs: Last Vital Signs Temp 98.0 F 08/15/24 09:02 Pulse 63 08/15/24 09:02 BP 116/64 08/15/24 09:02 Pulse Ox 98 08/15/24 09:02 Oxygen Delivery Method Room Air 08/15/24 09:02 BMI result Body Mass Index 30.6 Tobacco/Smoking Status: Tobacco use Status Tobacco use date assessed 08/15/24 08/15/24 09:18 Patient Tobacco Use Status Never used Tobacco 08/15/24 09:02 e-Cigarette/Vaping Use Never Used 08/15/24 09:02 PHQ-9: PHQ-9 Score PHQ-9: Total score 0 08/15/24 09:06 Depression Screening Interpretation: Negative Thrive Assessment: Date of Thrive Assessment Date Thrive assessed 08/15/24 08/15/24 09:06 Const General: no acute distress HENMT Head: Yes normal to inspection Face and sinus: Yes normal facial exam Resp Effort & Inspection: normal respiratory effort Auscultation: clear to auscultation bilaterally Cardio Rhythm: regular rhythm Heart sounds: S1 normal heart sound present and S2 normal heart sound present GI Inspection: Yes normal to inspection Palpation (GI): Soft to palpation Percussion: Yes normal to percussion Auscultation: normal bowel sounds Coding Level of Care Code Est Pt Level 4 (12145) Diagnoses GROVER (dyspnea on exertion) R06.09 Diabetes E11.9 HTN (hypertension) I10 Additional Codes SARAH-7 Assessment Billing - SARAH-7 Assessment Tool: SARAH-7 Assessment 61315 ([id number]) PHQ-9 - 66926 - PHQ-9 Billing: Yes ([id number]) Assessment & Plan Assessment & Plan (1) GROVER (dyspnea on exertion): Code(s): R06.09 - Other forms of dyspnea Category: Medical Plan: Obtain echocardiogram (2) Diabetes: Comment: A1C <7 Code(s): E11.9 - Type 2 diabetes mellitus without complications Category: Medical Plan: A1c is 6.0, ADA diet regular physical activity discussed with the patient (3) HTN (hypertension): Comment: BP goal less than 130/80 Code(s): I10 - Essential (primary) hypertension Category: Medical Plan: Blood pressure is elevated today and losartan will be changed to valsartan 320 mg daily patient will follow-up in 2 months. She is going to [place] for 1 month next week Orders: Orders CA echo transthoracic complete Today R06.09 - Other forms of dyspnea Complete Blood Count Auto Diff 2 Months E11.9 - Type 2 diabetes mellitus without complications, I10 - Essential (primary) hypertension, R06.09 - Other forms of dyspnea Comprehensive [place]. Panel Fast 2 Months E11.9 - Type 2 diabetes mellitus without complications, I10 - Essential (primary) hypertension, R06.09 - Other forms of dyspnea Hemoglobin A1c 2 Months E11.9 - Type 2 diabetes mellitus without complications, I10 - Essential (primary) hypertension, R06.09 - Other forms of dyspnea Medications: New valsartan 320 mg PO DAILY 90 tabs 3RF Refilled ezetimibe (Zetia) 10 mg PO DAILY 90 tabs 3RF cholecalciferol (vitamin D3) 25 mcg PO DAILY 90 caps 3RF amlodipine 5 mg PO DAILY 90 tabs 3RF apixaban (Eliquis) 5 mg PO BID 180 tabs 3RF 90 days metformin 500 mg PO BID 180 tabs 3RF metoprolol tartrate 25 mg PO BID 180 tabs 3RF atorvastatin 80 mg PO DAILY 90 tabs 3RF Discontinued losartan Discontinued Reason: Doctor's Order 100 mg PO DAILY 90 tabs 3RF
--- OUTSIDE RECORDS SUMMARY | 2024-08-15 09:50 | XMS_ITS | Clinical Summary ---
Author Organization [facility] Address [address] [place] [address] Care Team Providers Care Lsw Name Role Phone Traci Salinas MD Primary Care Provider [phone] Allergies No known active allergies Medications Medication [...] from 07/22/2021:Stage IIB(cT2, cN0, cM0, G3, ER-, MS-, HER2-) - Signed by Sowmya Ackerman MD on 08/03/2021 Coronary artery disease invo lving [place] coronary artery of [place] heart without angina pectoris 08/03/2021 Stented coronary [...] age to complete this topic Care Teams Lsw Relationship Specialty Start Date End Date Traci Salinas MD [address] [place] [address] PCP - General Book Packer 07/31/21
--- OUTSIDE RECORDS SUMMARY | 2024-08-15 09:50 | XMS_ITS ---
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 Past Plans ONCOLOGY TREATMENT Plan Name Start Date Discontinue Date Treatment Medications Discontinue Reason Plan Provider Cycles [facility] BCN OP Pembrolizumab + Paclitaxel + Carboplatin [...] treatments are documented for this patient in [facility]. Treatments may have been administered in another system.
== END 2024-08-15 10:27 | disposition home or self-care (01) ==
LOC: HO.HMCC 09:00
PROVIDERS: PCP Internal Medicine; Visit Provider Internal Medicine
DX: R06.09 Other forms of dyspnea (principal); E11.9 Type 2 diabetes mellitus without complications; I10 Essential (primary) hypertension

== ENCOUNTER → 2024-08-15 08:59 | Outpatient (BNVA) | payer MEDICARE, MEDICAID, SELFPAY | PROVIDERS: PCP Internal Medicine; Visit Provider Internal Medicine | DX: R06.09 Other forms of dyspnea (principal); E11.9 Type 2 diabetes mellitus without complications; I10 Essential (primary) hypertension | CPT/HCPCS: 96127; 99212 ==

== ENCOUNTER 2024-11-17 06:32 | Outpatient (REF) | payer MEDICARE, MEDICAID, SELFPAY ==
--- OUTSIDE RECORDS SUMMARY | 2024-11-17 06:34 | XMS_ITS ---
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 Past Plans ONCOLOGY TREATMENT Plan Name Start Date Discontinue Date Treatment Medications Discontinue Reason Plan Provider Cycles [facility] BCN OP Pembrolizumab + Paclitaxel + Carboplatin [...] treatments are documented for this patient in [facility]. Treatments may have been administered in another system.
[2024-11-17 11:04] LABS: MANUAL DIFF FLAG NO
[2024-11-17 11:20] LABS: Basophils Percent Auto 0.5 % (0-2); Eosinophils Absolute Auto 0.1 X10*3/uL (0.0-0.4); Eosinophils Percent Auto 2.2 % (0-4); Hematocrit 31.1 % (37.0-47.0); Hemoglobin 10.1 g/dl (12.0-16.0); Imm Gran Abs Auto 0.01 X10*3/uL (0.00-0.03); Imm Gran Pct Auto 0.2 % (0.0-0.4); Lymphocytes Absolute Auto 2.1 X10*3/uL (1.2-4.9); Lymphocytes Percent Auto 35.6 % (20-40); Mean Corpuscular HGB Conc 32.5 g/dl (31.0-35.0); Mean Corpuscular Hemoglobin 29.6 pg (27.0-33.0); Mean Corpuscular Volume 91.2 fL (80.0-98.0); Mean Platelet Volume 11.5 fL (9.4-12.3); Monocytes Absolute Auto 0.6 X10*3/uL (0.1-1.2); Monocytes Percent Auto 10.4 % (2-11); Neutrophils Percent Auto 51.1 % (45-73); Platelet Count 217 X10*3/uL (160-400); Red Blood Count 3.41 X10*6/uL (4.20-5.50); Red Cell Distribution Width 14.8 % (11.0-16.0)
[2024-11-17 11:28] LABS: Estimated Average Glucose 120 mg/dL; Hemoglobin A1c % 5.8 % (<6.0)
[2024-11-17 11:34] LABS: Alanine Aminotransferase 18 U/L (0-31); Albumin Level 4.2 g/dL (3.5-5.0); Alkaline Phosphatase 94 U/L (39-117); Anion Gap 11 (12-20); Aspartate Amino Transferase 26 U/L (5-31); Bilirubin Total 0.4 mg/dL (0.0-1.0); Blood Urea Nitrogen 22 mg/dL (9-16); Calcium 8.9 mg/dL (8.4-10.2); Carbon Dioxide 25 mmol/L (22-29); Chloride 110 mmol/L (96-108); Estimated Glomerular Filt Rate 59; Glucose Fasting 115 mg/dL (60-99); Potassium 4.6 mmol/L (3.3-5.1); Sodium 141 mmol/L (135-145); Total Protein 6.6 g/dL (6.5-8.0)
== END 2024-11-17 06:33 | disposition home or self-care (01) ==
LOC: HO.HMGCLDS 06:32
PROVIDERS: PCP Internal Medicine; Visit Provider Internal Medicine
DX: I10 Essential (primary) hypertension (principal); E11.9 Type 2 diabetes mellitus without complications; R06.09 Other forms of dyspnea
CPT/HCPCS: 36415; 80053; 83036; 85025

== ENCOUNTER 2024-11-20 08:52 | Outpatient (AMB) | payer MEDICARE, MEDICAID, SELFPAY ==
[2024-11-20 08:57] VITALS: BP 128/66; PULSE 72; RESP 18; TEMP 36.7; O2SAT 97; BMI 29.9
--- NOTE | 2024-11-20 08:57 | MHC.PC.OV ---
Vital Signs 11/20/24 08:57 Height 5 ft 1 in Weight 158 lb BMI 29.9 BP 128/66 Blood Pressure Location Lt brachial Position Sitting Respiration 18 Pulse 72 Pulse Source Pulse Oximeter Temp 98.1 F Temp Source Oral Pulse Oximetry (%) 97 Oxygen Delivery Method Room Air Intake Visit Reasons: Follow up on labs Intake Note: Pt is here today for a follow up visit on labs. Allergies No Known Allergies (No Known Allergies*) Allergy (Verified 11/20/24 08:58) Medication List - Last Reconciled 11/20/24 by Traci Salinas MD amlodipine 5 mg PO DAILY apixaban (Eliquis) 5 mg PO BID 90 days aspirin (Adult Low Dose Aspirin) 81 mg PO DAILY atorvastatin 80 mg PO DAILY blood sugar diagnostic ([employer] Verio test strips) 1 strip miscellaneous DAILY blood-glucose meter ([employer] Verio Meter) As directed calcium carbonate 1 tab PO DAILY cholecalciferol (vitamin D3) 25 mcg PO DAILY ezetimibe (Zetia) 10 mg PO DAILY ferrous sulfate 325 mg PO DAILY isosorbide mononitrate ER 30 mg PO DAILY lancets ([employer] Delica Lancets) Test blood sugar once a day metformin 500 mg PO BID metoprolol tartrate 25 mg PO BID valsartan 320 mg PO DAILY vitamins A,C,K-xfbs-nuuzes 4,296 mcg-226 mg-90 mg (Preser[employer]ision AREDS) 1 cap PO BID Tobacco use date assessed: 11/20/24 Fall risk assessment: No Falls in past year Last assessed Fall Risk: 11/20/24 Dental Screening Dental Screen Date: 08/15/24 HPI Follow up on labs HPI Details Patient presents for the follow-up on hypertension hyperlipidemia type 2 diabetes history of AFib stable on current medications. Patient is established with Oncology for breast CA. PFSH Medical History (Updated 11/19/24 @ 09:43 by Laurel Adorno MD) Renal mass, left Lobular breast cancer Abnormal mammogram of left breast Annual physical exam Paroxysmal A-fib Hyperlipidemia CAD (coronary artery disease) HTN (hypertension) Diabetes Surgical History Hx of cataract surgery History of section History of breast biopsy H/O colonoscopy Family History Father No problems noted. Mother No problems noted. Son No problems noted. Social History Household Members: Spouse Housing: House Alcohol intake: never Patient Tobacco Use Status: Never used Tobacco e-Cigarette/Vaping Use: Never Used service: No Current occupational status: retired Cognitive needs: No Hearing needs: No Vision needs: Yes Questionnaire Thrive Questionnaire Date Thrive assessed: 08/15/24 SARAH-7 AMB Questionnaire SARAH-7 Date SARAH - 7 assessed: 08/15/24 Source: Developed by Drs. Stuart Hu, Gloria Patel, Juan A Maya and colleagues, with an educational meka from [employer]. Review of Systems Const All systems reviewed & are unremarkable except as noted in HPI and below ENT Reports no additional complaints Card Reports no additional complaints Resp Reports no additional complaints GI Reports no additional complaints Reports no additional complaints Physical exam (Primary Care) Vital Signs: Last Vital Signs Temp 98.1 F 11/20/24 08:57 Pulse 72 11/20/24 08:57 Resp 18 11/20/24 08:57 BP 128/66 11/20/24 08:57 Pulse Ox 97 11/20/24 08:57 Oxygen Delivery Method Room Air 11/20/24 08:57 BMI result Body Mass Index 29.9 Tobacco/Smoking Status: Tobacco use Status Tobacco use date assessed 11/20/24 11/20/24 08:59 Patient Tobacco Use Status Never used Tobacco 11/20/24 08:59 e-Cigarette/Vaping Use Never Used 11/20/24 08:59 Thrive Assessment: Date of Thrive Assessment Date Thrive assessed 08/15/24 11/20/24 08:59 Const General: no acute distress HENMT Head: Yes normal to inspection Eyes General: appearance normal, both eyes and all related structures Resp Effort & Inspection: normal respiratory effort Auscultation: clear to auscultation bilaterally Cardio Rhythm: regular rhythm Heart sounds: S1 normal heart sound present and S2 normal heart sound present GI Inspection: Yes normal to inspection Palpation (GI): Soft to palpation Coding Level of Care Code Est Pt Level 4 (96974) Diagnoses Paroxysmal A-fib I48.0 Hyperlipidemia E78.5 Diabetes E11.9 HTN (hypertension) I10 Anemia D64.9 Lobular breast cancer C50.919 Assessment & Plan Assessment & Plan (1) Paroxysmal A-fib: Comment: Episode of AFib post [place] Code(s): I48.0 - Paroxysmal atrial fibrillation Category: Medical Plan: On beta alex and Eliquis follow-up with Cardiology (2) Hyperlipidemia: Code(s): E78.5 - Hyperlipidemia, unspecified Category: Medical Plan: Continue statin and Zetia (3) Diabetes: Comment: A1C <7 Code(s): E11.9 - Type 2 diabetes mellitus without complications Category: Medical Plan: A1c is 5.9, continue ADA diet increase physical activity follow-up in 2 months (4) HTN (hypertension): Comment: BP goal less than 130/80 Code(s): I10 - Essential (primary) hypertension Category: Medical Plan: Continue current medications (5) Anemia: Comment: chronic disease?, improved iron supplement Code(s): D64.9 - Anemia, unspecified Category: Medical Plan: Monitor CBC and continue iron supplement (6) Lobular breast cancer: Comment: 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 Wilson at [facility] Code(s): C50.919 - Malignant neoplasm of unspecified site of unspecified female breast Category: Medical Plan: Follow-up with oncology Orders: Orders Comprehensive [place]. Panel Fast 2 Months E11.9 - Type 2 diabetes mellitus without complications, E78.5 - Hyperlipidemia, unspecified, I10 - Essential (primary) hypertension, I25.10 - Atherosclerotic heart disease of [place] coronary artery without angina pectoris, I48.0 - Paroxysmal atrial fibrillation Hemoglobin A1c 2 Months E11.9 - Type 2 diabetes mellitus without complications, E78.5 - Hyperlipidemia, unspecified, I10 - Essential (primary) hypertension, I25.10 - Atherosclerotic heart disease of [place] coronary artery without angina pectoris, I48.0 - Paroxysmal atrial fibrillation IRON PROFILE 2 Months E11.9 - Type 2 diabetes mellitus without complications, E78.5 - Hyperlipidemia, unspecified, I10 - Essential (primary) hypertension, I25.10 - Atherosclerotic heart disease of [place] coronary artery without angina pectoris, I48.0 - Paroxysmal atrial fibrillation Vitamin B12 and Folate 2 Months E11.9 - Type 2 diabetes mellitus without complications, E78.5 - Hyperlipidemia, unspecified, I10 - Essential (primary) hypertension, I25.10 - Atherosclerotic heart disease of [place] coronary artery without angina pectoris, I48.0 - Paroxysmal atrial fibrillation Complete Blood Count Auto Diff 2 Months E11.9 - Type 2 diabetes mellitus without complications, E78.5 - Hyperlipidemia, unspecified, I10 - Essential (primary) hypertension, I25.10 - Atherosclerotic heart disease of [place] coronary artery without angina pectoris, I48.0 - Paroxysmal atrial fibrillation Lipid Panel 2 Months E11.9 - Type 2 diabetes mellitus without complications, E78.5 - Hyperlipidemia, unspecified, I10 - Essential (primary) hypertension, I25.10 - Atherosclerotic heart disease of [place] coronary artery without angina pectoris, I48.0 - Paroxysmal atrial fibrillation
--- OUTSIDE RECORDS SUMMARY | 2024-11-20 09:12 | XMS_ITS ---
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 Past Plans ONCOLOGY TREATMENT Plan Name Start Date Discontinue Date Treatment Medications Discontinue Reason Plan Provider Cycles [facility] BCN OP Pembrolizumab + Paclitaxel + [...] treatments are documented for this patient in [facility]. Treatments may have been administered in another system.
== END 2024-11-20 09:31 | disposition home or self-care (01) ==
LOC: HO.HMCC 08:52
PROVIDERS: PCP Internal Medicine; Visit Provider Internal Medicine
DX: E11.69 Type 2 diabetes mellitus with other specified complication (principal); I48.0 Paroxysmal atrial fibrillation; C50.919 Malignant neoplasm of unspecified site of unspecified female breast; E78.5 Hyperlipidemia, unspecified; I10 Essential (primary) hypertension; D64.9 Anemia, unspecified

== ENCOUNTER → 2024-11-20 08:52 | Outpatient (BNVA) | payer MEDICARE, MEDICAID, SELFPAY | PROVIDERS: PCP Internal Medicine; Visit Provider Internal Medicine | DX: I48.0 Paroxysmal atrial fibrillation (principal); E78.5 Hyperlipidemia, unspecified; E11.9 Type 2 diabetes mellitus without complications; D64.9 Anemia, unspecified; I10 Essential (primary) hypertension; Z85.3 Personal history of malignant neoplasm of breast | CPT/HCPCS: 99212 ==

== ENCOUNTER 2024-12-05 08:56 | Outpatient (AMB) | payer MEDICARE, MEDICAID, SELFPAY ==
--- OUTSIDE RECORDS SUMMARY | 2024-12-05 09:10 | XMS_ITS ---
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 Past Plans ONCOLOGY TREATMENT Plan Name Start Date Discontinue Date Treatment Medications Discontinue Reason Plan Provider Cycles [facility] BCN OP Pembrolizumab + Paclitaxel + Carboplatin [...] treatments are documented for this patient in [facility]. Treatments may have been administered in another system.
--- NOTE | 2025-01-07 10:26 | MHC.OFFVIS ---
Vital Signs 01/07/25 10:29 Height 5 ft 1 in Weight 153 lb 7.068 oz BMI 29.0 BP 124/64 Blood Pressure Location Lt brachial Position Sitting Pulse 68 Pulse Source Monitor Intake Visit Reasons: 6m follow up Store Merchandiser Required: Yes Store Merchandiser Language: Argentine Store Merchandiser Name: shai/johnathan/sadi [id number] Accompanied by: Self / Same As Patient Allergies No Known Allergies (No Known Allergies*) Allergy (Verified 12/26/24 09:39) Medication List - Last Reconciled 01/07/25 by Aidan Oliver MD amlodipine 5 mg PO DAILY apixaban (Eliquis) 5 mg PO BID 90 days ascorbic acid (vitamin C) (Vitamin C) 500 mg PO DAILY aspirin (Adult Low Dose Aspirin) 81 mg PO DAILY atorvastatin 80 mg PO DAILY blood sugar diagnostic (Viewster Verio test strips) 1 strip miscellaneous DAILY blood-glucose meter (Viewster Verio Meter) As directed calcium carbonate 1 tab PO DAILY cholecalciferol (vitamin D3) 25 mcg PO DAILY cyanocobalamin (vitamin B-12) 1,000 mcg PO DAILY ezetimibe (Zetia) 10 mg PO DAILY famotidine (Pepcid) 20 mg PO BEDTIME ferrous sulfate 325 mg PO DAILY isosorbide mononitrate ER 30 mg PO DAILY lancets (Viewster Delica Lancets) Test blood sugar once a day lisinopril 20 mg PO DAILY metformin 500 mg PO BID metoprolol tartrate 25 mg PO BID omeprazole 20 mg PO DAILY vitamins A,C,G-caxy-pirwcq 4,296 mcg-226 mg-90 mg (PreserVision AREDS) 1 cap PO BID HPI Comments Details: 73-year-old female here for follow-up. She has history of coronary disease with previous NSTEMI for which she underwent left circumflex artery PCI. At that time she has a right coronary artery MOVIE OPERATOR. Subsequent to that she developed atrial fibrillation and was started on Coumadin. She has been maintained on Plavix and Coumadin. Unfortunately she got diagnosed with left breast cancer and is undergoing chemotherapy. She is noted to be anemic and was also complaining of bright red blood per rectum specially when she is wiping at the end of passing stools. Story sounds more like hemorrhoids but due to these issues she was brought to the office for further assessment. Denying any chest pain or shortness of breath. Obviously quite stressed and depressed due to breast cancer and ongoing chemotherapy. 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 05/18/2023: She returns for follow-up. She is following with Oncology and has been stable. She is in need of cataract surgery. Denying any other symptoms currently. 09/19/23: She is here for follow-up. She has been doing well. No chest discomfort shortness of breath. Taking medications regularly. She is stable from breast cancer viewpoint. 03/21/2024: She is here for follow-up. She is complaining of some shortness of breath with activity as well as upper chest discomfort. She is saying this lasts for 10 minutes and then gets better. He has known history of coronary disease with previous OM PCI as well as RCA MOVIE OPERATOR. 06/20/2024: She is here for follow-up. She underwent cardiac catheterization recently because she had hypotension during exercise stress test. We did not notice any significant disease in the left main. OM stent was open and she had known RCA MOVIE OPERATOR which was unchanged. On follow-up she is denying any significant symptoms other than numbness and tingling in her hands and feet since she had chemotherapy. 01/07/2025: She is here for follow-up. She was found to have symptomatic anemia early December with hemoglobin of 7.1. Her aspirin and Eliquis were held and she was transfused with blood and also received some iron. She is following closely with Hematology. He is saying that she is feeling much better at this point. She continues to hold aspirin and Plavix at this stage. She has background of atrial fibrillation as well as coronary disease. [facility] Medical History Renal mass, left Lobular breast cancer Abnormal mammogram of left breast Annual physical exam Paroxysmal A-fib Hyperlipidemia CAD (coronary artery disease) HTN (hypertension) Diabetes Surgical History Hx of cataract surgery History of section History of breast biopsy H/O colonoscopy Family History Father No problems noted. Mother No problems noted. Son No problems noted. Social History (Reviewed 01/07/25 @ 10:33 by Day Sanchez [facility]) Household Members: Spouse Housing: House Alcohol intake: never Patient Tobacco Use Status: Never used Tobacco e-Cigarette/Vaping Use: Never Used service: No Current occupational status: retired Cognitive needs: No Hearing needs: No Vision needs: Yes Review of Systems Const Denies chills, Denies fatigue, Denies fever(s), Denies frequent falls, Denies weakness, Denies weight gain and Denies weight loss ENT Denies dizziness Card Denies chest pain, Denies leg edema, Denies lightheadedness, Denies palpitations, Denies dyspnea and Denies dyspnea on exertion Resp Denies cough, Denies dyspnea and Denies dyspnea on exertion GI Denies hematochezia Musc Denies abnormal gait, Denies muscle weakness, Denies numbness, Denies radiating pain into limb and Denies tingling Neuro Denies abnormal gait, Denies dizziness, Denies frequent falls, Denies numbness, Denies tingling and Denies weakness Endo Denies fatigue and Denies palpitations Physical Exam Vital Signs: Last Vital Signs Pulse 68 01/07/25 10:29 BP 124/64 01/07/25 10:29 BMI result Body Mass Index 29.0 GENERAL APPEARANCE: in no acute distress, pleasant. NECK: no carotid bruit, no jugular venous distention. SKIN: no suspicious lesions, warm and dry. HEART: no murmurs, regular rate and rhythm. LUNGS: clear to auscultation bilaterally. ABDOMEN: soft, nontender. EXTREMITIES: no edema. PERIPHERAL PULSES: equal. NEUROLOGIC: No gross deficits, AAO X 3 Office Procedures EKG Details: Sinus rhythm 68 beats per minute, normal ECG, QTC 421 milliseconds. [id number], Complete Assessment & Plan Assessment & Plan (1) Paroxysmal A-fib: Comment: Episode of AFib post [place] Code(s): I48.0 - Paroxysmal atrial fibrillation Category: Medical (2) CAD (coronary artery disease): Comment: s/p DEYANIRA to cx for NSTEMI 05/2019 cardiac cath RCA chronic occluded, cardiac cath 04/2024 : RCA occluded, patent LCx stent, LAD minimal luminal irregularities Code(s): I25.10 - Atherosclerotic heart disease of [place] coronary artery without angina pectoris Category: Medical Plan Pleasant 74 year female who is here for follow-up. She has background history of coronary artery disease with previous circumflex OM PCI and known MOVIE OPERATOR of right coronary artery. She also had paroxysmal atrial fibrillation and was on Eliquis. Recently developed symptomatic anemia and aspirin and Eliquis both were discontinued. She has been transfused and also received some iron and has been feeling much better at this stage. I have advised her not to start aspirin. She will be seeing Dr. Adorno tomorrow and if she is agreeable we can resume apixaban. Alternatively I have given her the option to consider Watchman device but she wishes to wait for Dr. Adorno's input about resuming Eliquis. Eliquis can not be resumed then would refer her for Watchman device. Thank you for allowing me to participate in the care of your patient. Please feel free to contact me if you have any questions. Coding Level of Care Code Est Pt Level 4 (58792) Diagnoses Paroxysmal A-fib I48.0 CAD (coronary artery disease) I25.10 CPT Codes EKG - CPT: 37140-[id number], Complete ([id number])
[2025-01-07 10:29] VITALS: BP 124/64; PULSE 68; BMI 29.0
== END 2025-01-07 10:57 | disposition home or self-care (01) ==
PROVIDERS: PCP Internal Medicine; Visit Provider Internal Medicine Cardiovascular Disease
DX: I48.0 Paroxysmal atrial fibrillation (principal); I25.10 Atherosclerotic heart disease of native coronary artery without angina pectoris
CPT/HCPCS: 93010; 99214

== ENCOUNTER → 2024-12-05 08:56 | Outpatient (BNVA) | payer MEDICARE, MEDICAID, SELFPAY | PROVIDERS: PCP Internal Medicine; Visit Provider Internal Medicine Cardiovascular Disease | DX: I48.0 Paroxysmal atrial fibrillation (principal); I25.10 Atherosclerotic heart disease of native coronary artery without angina pectoris; Z79.82 Long term (current) use of aspirin; Z79.01 Long term (current) use of anticoagulants; Z79.899 Other long term (current) drug therapy | CPT/HCPCS: 93005; 99212 ==

== ENCOUNTER 2024-12-24 08:14 | Outpatient (REF) | payer MEDICARE, MEDICAID, SELFPAY ==
[2024-12-24 10:26] LABS: MANUAL DIFF FLAG NO
[2024-12-24 10:43] LABS: Hematocrit 24.1 % (37.0-47.0); Hemoglobin 7.6 g/dl (12.0-16.0); Imm Gran Abs Auto 0.03 X10*3/uL (0.00-0.03); Imm Gran Pct Auto 0.6 % (0.0-0.4); Lymphocytes Absolute Auto 1.2 X10*3/uL (1.2-4.9); Mean Corpuscular HGB Conc 31.5 g/dl (31.0-35.0); Mean Corpuscular Hemoglobin 30.5 pg (27.0-33.0); Mean Corpuscular Volume 96.8 fL (80.0-98.0); NRBC Abs Auto 0.000 X10*3/uL (0.0-0.012); NRBC Pct Auto 0.0 /100WBC (0.0-0.2); Platelet Count 247 X10*3/uL (160-400); Red Blood Count 2.49 X10*6/uL (4.20-5.50); Reticulocytes Absolute 0.161 X10*6/uL (0.026-0.095); White Blood Count 4.9 X10*3/uL (4.8-10.8)
[2024-12-24 10:45] LABS: Alanine Aminotransferase 13 U/L (0-31); Albumin Level 4.3 g/dL (3.5-5.0); Alkaline Phosphatase 86 U/L (39-117); Anion Gap 11 (12-20); Aspartate Amino Transferase 23 U/L (5-31); Blood Urea Nitrogen 32 mg/dL (9-16); Calcium 9.2 mg/dL (8.4-10.2); Carbon Dioxide 25 mmol/L (22-29); Chloride 109 mmol/L (96-108); Estimated Glomerular Filt Rate 51; Potassium 4.1 mmol/L (3.3-5.1); Sodium 141 mmol/L (135-145); Total Protein 6.6 g/dL (6.5-8.0)
== END 2024-12-24 08:15 | disposition home or self-care (01) ==
LOC: HO.HMGCLDS 08:14
PROVIDERS: PCP Internal Medicine; Visit Provider Internal Medicine
DX: I10 Essential (primary) hypertension (principal); D64.9 Anemia, unspecified; I48.0 Paroxysmal atrial fibrillation; E78.5 Hyperlipidemia, unspecified; E11.9 Type 2 diabetes mellitus without complications; Z79.01 Long term (current) use of anticoagulants; Z79.84 Long term (current) use of oral hypoglycemic drugs; Z79.899 Other long term (current) drug therapy; E53.8 Deficiency of other specified B group vitamins
CPT/HCPCS: 36415; 80053; 83921; 85025; 85045; 99212

== ENCOUNTER 2024-12-24 08:14 | Outpatient (AMB) | payer MEDICARE, MEDICAID, SELFPAY ==
[2024-12-24 08:17] VITALS: BP 138/64; PULSE 95; RESP 18; TEMP 36.8; O2SAT 98; BMI 28.9
--- NOTE | 2024-12-24 08:17 | A.OFFPC_ITS ---
Vital Signs 12/24/24 08:17 Height 5 ft 1 in Weight 153 lb BMI 28.9 BP 138/64 Blood Pressure Location Lt brachial Position Sitting Respiration 18 Pulse 95 Pulse Source Pulse Oximeter Temp 98.2 F Temp Source Oral Pulse Oximetry (%) 98 Oxygen Delivery Method Room Air Intake Visit Reasons: follow up Intake Note: Pt is here today for a sick visit. Pt c/o dizziness pain in her chest and SOB at times. Allergies No Known Allergies (No Known Allergies*) Allergy (Verified 12/24/24 08:20) Medication List - Last Reconciled 12/24/24 by Traci Salinas MD amlodipine 5 mg PO DAILY apixaban (Eliquis) 5 mg PO BID 90 days aspirin (Adult Low Dose Aspirin) 81 mg PO DAILY atorvastatin 80 mg PO DAILY blood sugar diagnostic (Wanova Verio test strips) 1 strip miscellaneous DAILY blood-glucose meter (Wanova Verio Meter) As directed calcium carbonate 1 tab PO DAILY cholecalciferol (vitamin D3) 25 mcg PO DAILY cyanocobalamin (vitamin B-12) 1,000 mcg PO DAILY ezetimibe (Zetia) 10 mg PO DAILY famotidine (Pepcid) 20 mg PO BEDTIME ferrous sulfate 325 mg PO DAILY isosorbide mononitrate ER 30 mg PO DAILY lancets (BMP [employer] Delica Lancets) Test blood sugar once a day lisinopril 20 mg PO DAILY metformin 500 mg PO BID metoprolol tartrate 25 mg PO BID vitamins A,C,O-ftul-knlbly 4,296 mcg-226 mg-90 mg (PreserVision AREDS) 1 cap PO BID Tobacco use date assessed: 12/24/24 Fall risk assessment: No Falls in past year Last assessed Fall Risk: 12/24/24 Dental Screening Dental Screen Date: 08/15/24 HPI follow up HPI Details Patient presents complaining of feeling tired for the last month having episodes of lightheadedness when standing up or walking. Patient reports intermittent heartburn but denies abdominal pain nausea vomiting hematochezia melena. Patient attributes the symptoms to starting valsartan 2 months ago. [facility] Medical History Renal mass, left Lobular breast cancer Abnormal mammogram of left breast Annual physical exam Paroxysmal A-fib Hyperlipidemia CAD (coronary artery disease) HTN (hypertension) Diabetes Surgical History Hx of cataract surgery History of section History of breast biopsy H/O colonoscopy Family History Father No problems noted. Mother No problems noted. Son No problems noted. Social History Household Members: Spouse Housing: House Alcohol intake: never Patient Tobacco Use Status: Never used Tobacco e-Cigarette/Vaping Use: Never Used service: No Current occupational status: retired Cognitive needs: No Hearing needs: No Vision needs: Yes Questionnaire Thrive Questionnaire Date Thrive assessed: 08/15/24 SARAH-7 AMB Questionnaire SARAH-7 Date SARAH - 7 assessed: 08/15/24 Source: Developed by Drs. Stuart Hu, Gloria Patel, Juan A Maya and colleagues, with an educational meka from [employer]. Review of Systems Const All systems reviewed & are unremarkable except as noted in HPI and below Eyes Reports no additional complaints ENT Reports no additional complaints Card Reports no additional complaints Resp Reports no additional complaints GI Reports no additional complaints Reports no additional complaints Physical exam (Primary Care) Vital Signs: Last Vital Signs Temp 98.2 F 12/24/24 08:17 Pulse 95 12/24/24 08:17 Resp 18 12/24/24 08:17 BP 138/64 12/24/24 08:17 Pulse Ox 98 12/24/24 08:17 Oxygen Delivery Method Room Air 12/24/24 08:17 BMI result Body Mass Index 28.9 Tobacco/Smoking Status: Tobacco use Status Tobacco use date assessed 12/24/24 12/24/24 08:23 Patient Tobacco Use Status Never used Tobacco 12/24/24 08:23 e-Cigarette/Vaping Use Never Used 12/24/24 08:21 Thrive Assessment: Date of Thrive Assessment Date Thrive assessed 08/15/24 12/24/24 08:21 Const General: no acute distress HENMT Head: Yes normal to inspection Face and sinus: Yes normal facial exam Neck Neck: Yes supple Resp Effort & Inspection: normal respiratory effort Auscultation: clear to auscultation bilaterally Cardio Rhythm: regular rhythm Heart sounds: S1 normal heart sound present and S2 normal heart sound present GI Inspection: Yes normal to inspection Palpation (GI): Soft to palpation Percussion: Yes normal to percussion Auscultation: normal bowel sounds Coding Level of Care Code Est Pt Level 4 (52412) Complex EM visit Add On G2211 Diagnoses HTN (hypertension) I10 Anemia D64.9 Paroxysmal A-fib I48.0 Hyperlipidemia E78.5 Diabetes E11.9 Assessment & Plan Assessment & Plan (1) HTN (hypertension): Comment: BP goal less than 130/80 Code(s): I10 - Essential (primary) hypertension Category: Medical Plan: valsartan will be discontinued because of side effects, fatigue and dizziness. Lisinopril 20 mg will be started for hypertension. Patient will continue amlodipine metoprolol follow-up in 2 weeks for blood pressure check (2) Anemia: Comment: chronic disease?, improved iron supplement Code(s): D64.9 - Anemia, unspecified Category: Medical Plan: For chronic anemia check CBC iron studies (3) Paroxysmal A-fib: Comment: Episode of AFib post DC Code(s): I48.0 - Paroxysmal atrial fibrillation Category: Medical Plan: Continue Eliquis and metoprolol for rate control (4) Hyperlipidemia: Code(s): E78.5 - Hyperlipidemia, unspecified Category: Medical Plan: Continue statin (5) Diabetes: Comment: A1C <7 Code(s): E11.9 - Type 2 diabetes mellitus without complications Category: Medical Plan: A1c was 5.8, continue metformin and ADA diet Orders: Orders Complete Blood Count Auto Diff Today D64.9 - Anemia, unspecified, E53.8 - Deficiency of other specified B group vitamins, I10 - Essential (primary) hypertension Reticulocyte Count Today D64.9 - Anemia, unspecified, E53.8 - Deficiency of other specified B group vitamins, I10 - Essential (primary) hypertension Methylmalonic Acid Today D64.9 - Anemia, unspecified, E53.8 - Deficiency of other specified B group vitamins, I10 - Essential (primary) hypertension IRON PROFILE Today D64.9 - Anemia, unspecified Comprehensive Met. Panel Today D64.9 - Anemia, unspecified, E53.8 - Deficiency of other specified B group vitamins, I10 - Essential (primary) hypertension Medications: New famotidine (Pepcid) 20 mg PO BEDTIME 90 tabs 0RF lisinopril 20 mg PO DAILY 90 tabs 0RF cyanocobalamin (vitamin B-12) 1,000 mcg PO DAILY 90 tabs 0RF Discontinued valsartan Discontinued Reason: Doctor's Order 320 mg PO DAILY 90 tabs 3RF
--- OUTSIDE RECORDS SUMMARY | 2024-12-24 08:19 | XMS_ITS ---
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 Past Plans ONCOLOGY TREATMENT Plan Name Start Date Discontinue Date Treatment Medications Discontinue Reason Plan Provider Cycles BCN OP Pembrolizumab + Paclitaxel + Carboplatin [...] treatments are documented for this patient in [facility]. Treatments may have been administered in another system.
== END 2024-12-24 08:59 | disposition home or self-care (01) ==
LOC: HO.HMCC 08:14
PROVIDERS: PCP Internal Medicine; Visit Provider Internal Medicine
DX: E11.69 Type 2 diabetes mellitus with other specified complication (principal); I10 Essential (primary) hypertension; I48.0 Paroxysmal atrial fibrillation; D64.9 Anemia, unspecified; E78.5 Hyperlipidemia, unspecified

== ENCOUNTER 2025-01-09 13:55 | Outpatient (AMB) | payer MEDICARE, MEDICAID, SELFPAY ==
--- NOTE | 2025-01-09 14:00 | MHC.OFFVIS ---
Vital Signs 01/09/25 14:12 Height 5 ft 1 in Weight 153 lb BMI 28.9 BP 148/76 H Blood Pressure Location Rt brachial Position Sitting Pulse 74 Pulse Source Pulse Oximeter Pulse Oximetry (%) 94 Oxygen Delivery Method Room Air Intake Visit Reasons: anemia Intake Note: New pt for urgent consult per anemia. CC: Pt denies any significant sx or concerns at this time and states that she feels more or less normal. Pt denies any weakness, dizziness, or pain. Mosquito Sprayer Required: Yes Mosquito Sprayer Services: Mosquito Sprayer Offered & Declined Accompanied by: Sister Allergies No Known Allergies (No Known Allergies*) Allergy (Verified 12/26/24 09:39) HPI HPI anemia: Details: 74-year-old female with past med go history of vitamin B12 deficiency, neuropathy, hematochezia, anemia, lobular breast cancer, PAF, hyperlipidemia, CAD, NSTEMI in May of 2019 is here today for initial consultation. Patient is sent to us by her oncologist. History of anemia, in the past few weeks patient has had very low H&H, however today patient did her lab work and there is an improvement. Patient stop Eliquis and aspirin. She is on omeprazole daily and reports that she has no epigastric pain for acid reflux. Patient denies melena, hematochezia, unintentional weight loss or ribbon like stools. No issues with anesthesia in the past. No history of sleep apnea. Last colonoscopy was in 2017.. Patient was seen in 2021 in our office for anemia, however patient opted not to go for colonoscopy then. Laboratory Tests 11/17/24 12/24/24 12/26/24 06:35 08:50 09:32 RBC 3.41 L 2.49 L D 2.38 L Hgb 10.1 L 7.6 L D 7.2 L Hct 31.1 L 24.1 L D 22.9 L 01/09/25 13:42 RBC 3.89 L D Hgb 11.5 L D Hct 36.9 L D Laboratory Tests 11/17/24 12/24/24 12/26/24 06:35 08:50 09:32 MCV 91.2 96.8 96.2 MCH 29.6 30.5 30.3 01/09/25 13:42 MCV 94.9 MCH 29.6 [facility] Medical History Renal mass, left Lobular breast cancer Abnormal mammogram of left breast Annual physical exam Paroxysmal A-fib Hyperlipidemia CAD (coronary artery disease) HTN (hypertension) Diabetes Surgical History Hx of cataract surgery History of section History of breast biopsy H/O colonoscopy Family History Father No problems noted. Mother No problems noted. Son No problems noted. Social History Household Members: Spouse Housing: House Alcohol intake: never Patient Tobacco Use Status: Never used Tobacco e-Cigarette/Vaping Use: Never Used service: No Current occupational status: retired Cognitive needs: No Hearing needs: No Vision needs: Yes Review of Systems Const Denies weight gain and Denies weight loss ENT Reports no additional complaints, Denies dysphagia and Denies odynophagia Card Reports no additional complaints Resp Reports no additional complaints GI Denies abdominal pain, Denies belching, Denies melena, Denies bloating, Denies change in bowel habits, Denies dysphagia, Denies excessive flatus, Denies dyspepsia, Denies heartburn, Denies diarrhea, Denies loose stools, Denies nausea, Denies odynophagia and Denies vomiting Musc Reports no additional complaints Neuro Reports no additional complaints Psych Reports no additional complaints Endo Reports no additional complaints Physical Exam Vital Signs: Last Vital Signs Pulse 74 01/09/25 14:12 BP 148/76 H 01/09/25 14:12 Pulse Ox 94 01/09/25 14:12 Oxygen Delivery Method Room Air 01/09/25 14:12 BMI result Body Mass Index 28.9 Const General: healthy appearing, no acute distress and well developed Nutritional Appearance: well nourished Orientation/consciousness: patient oriented x3 Resp Effort & Inspection: normal respiratory effort, able to speak in complete sentences, no tracheal deviation and symmetric chest movement Auscultation: clear to auscultation bilaterally Cardio Rate: regular rate GI Inspection: Yes normal to inspection and No distended Palpation (GI): Soft to palpation, not firm, nontender and No hepatosplenomegaly present Auscultation: normal bowel sounds General: Yes no CVA tenderness Back/Spine/Pelvis Back: no CVA tenderness Skin General skin exam: elasticity normal, turgor normal and dry skin Neuro General: patient oriented x3 Psych Appearance: grossly normal Mental Status: mental status grossly normal Assessment & Plan Assessment & Plan (1) Anemia: Code(s): D64.9 - Anemia, unspecified Category: Medical Qualifiers: Anemia type: unspecified type Qualified Code(s): D64.9 - Anemia, unspecified (2) Screen for colon cancer: Code(s): Z12.11 - Encounter for screening for malignant neoplasm of colon (3) GERD (gastroesophageal reflux disease): Code(s): K21.9 - Gastro-esophageal reflux disease without esophagitis Qualifiers: Esophagitis presence: esophagitis presence not specified Qualified Code(s): K21.9 - Gastro-esophageal reflux disease without esophagitis Plan Patient will be sent for upper endoscopy and colonoscopy. We are able to schedule her next . Patient denies any issues with anesthesia in the past. No history of sleep apnea. Not on any anticoagulation medication. Patient can continue taking omeprazole in the morning and famotidine at bedtime.. She will restart Eliquis today and aspirin. Currently patient is taking iron supplements. Today's H&H improved. Message sent to her oncologist as well as her finisher hot strip. Plasterer Journeyman cleared her: intermediate risk for the procedure. Patient will stop her Eliquis Tuesday morning. May take aspirin. What to expect before during and after procedure discussed with patient. Stressed the importance of good liquid diet and good bowel prep day before procedure. She is agreeable to current plan of care and verbalizes understanding of instructions. She was given the opportunity to ask questions and all questions answered. Thank you for allowing me to participate in her care Medications: New bisacodyl (Dulcolax (bisacodyl)) take 4 tabs at noon the day before your colonoscopy 20 mg (4 x 5 mg) PO ONCE 4 tabs 0RF constipation 1 day Z12.11 - Encounter for screening for malignant neoplasm of colon polyethylene glycol 3350 (Miralax) As directed by gastro[facility]ology department at [facility] 238 grams PO ONCE 238 grams 0RF Z12.11 - Encounter for screening for malignant neoplasm of colon Coding Level of Care Code New Pt Level 4 (93446) Diagnoses Anemia, unspecified type D64.9 Anemia type: unspecified type Screen for colon cancer Z12.11 Gastroesophageal reflux disease, unspecified whether esophagitis present K21.9 Esophagitis presence: esophagitis presence not specified Time Spent (min) 45 Comment 35 minutes spent with patient and additional 10 minutes spent reviewing her records
[2025-01-09 14:12] VITALS: BP 148/76; PULSE 74; O2SAT 94; BMI 28.9
--- OUTSIDE RECORDS SUMMARY | 2025-01-09 14:52 | XMS_ITS ---
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 Past Plans ONCOLOGY TREATMENT Plan Name Start Date Discontinue Date Treatment Medications Discontinue Reason Plan Provider Cycles [facility] BCN OP Pembrolizumab + Paclitaxel + [...] treatments are documented for this patient in [facility]. Treatments may have been administered in another system.
== END 2025-01-09 14:41 | disposition home or self-care (01) ==
LOC: HO.HGI 13:55
PROVIDERS: PCP Internal Medicine; Visit Provider Nurse Practitioner Family
DX: D64.9 Anemia, unspecified (principal); Z01.818 Encounter for other preprocedural examination; Z12.11 Encounter for screening for malignant neoplasm of colon; K21.9 Gastro-esophageal reflux disease without esophagitis
CPT/HCPCS: 99204

== ENCOUNTER → 2025-01-09 13:55 | Outpatient (BNVA) | payer MEDICARE, MEDICAID, SELFPAY | PROVIDERS: PCP Internal Medicine; Visit Provider Nurse Practitioner Family | DX: Z12.11 Encounter for screening for malignant neoplasm of colon (principal); K21.9 Gastro-esophageal reflux disease without esophagitis; D64.9 Anemia, unspecified | CPT/HCPCS: 99202 ==

== ENCOUNTER 2025-01-17 06:46 | Day surgery (SDC) | payer MEDICARE, MEDICAID, SELFPAY ==
--- NOTE | 2025-01-16 09:35 | P.CONAN_ITS ---
HPI - Anesthesia Eval Consult details Narrative: 74 yr old female for upper endoscopy and colonoscopy CAD: s/p circumflex OM PCI and known PRESSING MACHINE OPERATOR of right coronary artery in 2020. Follows with [facility] cardiology Paroxsysmal afib: developed after NSTEMI/stenting, had been on eliquis & ASA prior to recent blood per rectum Anemia: transfused x2 units 12/26/24, iron transfusion PMFSH Active Problems Active Problems: All Active Problems GROVER (dyspnea on exertion) (Acute) Stable angina (Acute) Abnormal stress test (Acute) Cancer of left kidney (Acute) Vitamin B 12 deficiency (Acute) Cataract (Acute) Neuropathy (Acute) H/O colonoscopy (Acute) Hematochezia (Acute) Anemia (Acute) Renal mass, left (Acute) Lobular breast cancer (Acute) Preop cardiovascular exam (Acute) Abnormal mammogram of left breast (Acute) Annual physical exam (Acute) Paroxysmal A-fib (Acute) Hyperlipidemia (Acute) Dyspnea on exertion (Acute) CAD (coronary artery disease) (Acute) HTN (hypertension) (Acute) Diabetes (Acute) Current use of anticoagulant therapy (Acute) Past Medical History Medical History Renal mass, left Lobular breast cancer Abnormal mammogram of left breast Annual physical exam Paroxysmal A-fib Hyperlipidemia CAD (coronary artery disease) HTN (hypertension) Diabetes Family History Family History Father No problems noted. Mother No problems noted. Son No problems noted. Surgical History Surgical History Hx of cataract surgery History of section History of breast biopsy H/O colonoscopy Social History Social History Household Members: Spouse Housing: House Alcohol intake: never Patient Tobacco Use Status: Never used Tobacco e-Cigarette/Vaping Use: Never Used service: No Current occupational status: retired Cognitive needs: No Hearing needs: No Vision needs: Yes Meds Allergies Allergy/AdvReac Type Severity Reaction Status Date / Time No Known Allergies (No Known Allergy Verified 01/16/25 09:59 Allergies*) Home Medications ?Medication ?Instructions ?Recorded ?Confirmed ?Last Taken ?Type vitamins A,C,G-gltb-bluhhn 4,296 1 cap PO BID 07/30/21 01/16/25 Unknown History mcg-226 mg-90 mg capsule (PreserVision AREDS) Exam Pertinent Lab Results Pertinent Lab Results: Laboratory Tests 12/24/24 01/09/25 08:50 13:42 WBC 6.2 RBC 3.89 L D Hgb 11.5 L D Hct 36.9 L D Plt Count 238 Sodium 141 Potassium 4.1 BUN 32 H Creatinine 1.06 Narrative Narrative: Echo 2021 Conclusions: - Normal left ventricular size, thickness, and systolic function. The visually estimated ejection fraction is between 55-60%. - E/E prime ratio is between 8 and 15 consistent with indeterminate filling pressures. - Normal right ventricular cavity size and systolic function. - The left atrium is mildly dilated. The right atrium is normal in size. Cardiac Cath 04/2024
[2025-01-17 07:43] VITALS: BMI 28.3
[2025-01-17] MEDS: Lactated Ringers 1,000 ML 100 ML IVCONT (08:33)
--- NOTE | 2025-01-17 08:40 | MHC.SHP ---
Pre-Procedural Eval Section A - 24 Hr Update-Section A only Date of Service: 01/17/25 The patient is an INPATIENT: No The patient has been examined within 24 hours of the surgical procedure. The History & Physical has been completed within 30 days and I have reviewed it.: Yes Section B - Complete if H&P > 30 days Chief Complaint: Anemia, unspecified Allergies: Allergies Allergy/AdvReac Type Severity Reaction Status Date / Time No Known Allergies (No Known Allergy Verified 01/17/25 08:00 Allergies*) Plan Diagnosis/Plan: Unchanged I have reviewed the history and physical and performed a pertinent physical examination on my patient. No changes have occurred unless specified. Time Spent With Patient Time: Total time managing care of this patient today ____ minutes.
[2025-01-17 08:41] VITALS: BP 162/81; PULSE 83; RESP 18; TEMP 36.7; O2SAT 96
[2025-01-17 08:45] LABS: Glucose, Whole Blood 96 mg/dL (60-115)
--- NOTE | 2025-01-17 09:46 | P.CONAN_ITS ---
[facility] Active Problems Active Problems: All Active Problems (Updated 01/09/25 @ 19:21 by Tasha Washburn, [facility]) GROVER (dyspnea on exertion) (Acute) Stable angina (Acute) Abnormal stress test (Acute) Cancer of left kidney (Acute) Vitamin B 12 deficiency (Acute) Cataract (Acute) Neuropathy (Acute) H/O colonoscopy (Acute) Hematochezia (Acute) Anemia (Acute) Renal mass, left (Acute) Lobular breast cancer (Acute) Preop cardiovascular exam (Acute) Abnormal mammogram of left breast (Acute) Annual physical exam (Acute) Paroxysmal A-fib (Acute) Hyperlipidemia (Acute) Dyspnea on exertion (Acute) CAD (coronary artery disease) (Acute) HTN (hypertension) (Acute) Diabetes (Acute) Current use of anticoagulant therapy (Acute) Past Medical History Medical History Renal mass, left Lobular breast cancer Abnormal mammogram of left breast Annual physical exam Paroxysmal A-fib Hyperlipidemia CAD (coronary artery disease) HTN (hypertension) Diabetes Family History Family History Father No problems noted. Mother No problems noted. Son No problems noted. Family history of problems with anesthesia: No Surgical History Surgical History Hx of cataract surgery History of section History of breast biopsy H/O colonoscopy History of Problems with Anesthesia: No Social History Social History Household Members: Spouse Housing: House Are you a primary home child care provider to a significant other at home: No Do you presently have visiting nurse or other home services: No Alcohol intake: never Patient Tobacco Use Status: Never used Tobacco e-Cigarette/Vaping Use: Never Used Have you been hit, kicked, punched, or otherwise hurt by someone within the past year? If so, by whom?: No Are you DNR?: No Advance Directives: No Advance Directives Information Provided: Yes Poor oral hygiene: Yes service: No Current occupational status: retired Cognitive needs: No Hearing needs: No Vision needs: Yes Meds Allergies Allergy/AdvReac Type Severity Reaction Status Date / Time No Known Allergies (No Known Allergy Verified 01/17/25 08:00 Allergies*) Active Medications: Current Medications Lactated Ringer's (Lr) 1,000 mls @ 100 mls/hr IVCONT .Q10H LUCA Last Admin: 01/17/25 08:33 Dose: 100 mls/hr Home Medications ?Medication ?Instructions ?Recorded ?Confirmed ?Last Taken ?Type vitamins A,C,V-vbfi-rgnmzu 4,296 1 cap PO BID 07/30/21 01/17/25 Unknown History mcg-226 mg-90 mg capsule (PreserVision AREDS) apixaban 5 mg tablet (Eliquis) 5 mg PO BID 01/17/2501/14/25 History Exam Height,Weight and Vital Signs: Height 5 ft 1 in Weight 68.039 kg Last Vital Signs Temp 98.0 F 01/17/25 08:41 Pulse 83 01/17/25 08:41 Resp 18 01/17/25 08:41 BP 162/81 H 01/17/25 08:41 Pulse Ox 96 01/17/25 08:41 O2 Del Method Room Air 01/17/25 08:41 Pertinent Lab Results Pertinent Lab Results: Laboratory Tests 01/17/25 08:31 POC Glucose 96 Airway Mallampati Class: III TM Dist: >3cm Neck ROM: Full Denture: Upper and Lower Heart: RRR Lungs: CTA Assessment and Plan Assessment Anesthesia Assessment: Anesthesia Plan Discussed and Chart Reviewed Final Anesthetic Review Family History of Problems with Anesthesia: No History of Problems with Anesthesia: No NPO: Yes ASA Class: II Final Preanesthetic Review: Meds/Allgs Chart Reviewed, Consent Obtained/Reviewed and Anes Risks/Benef Reviewed
--- NOTE | 2025-01-17 09:49 | HO.ANESPROP2 ---
[facility] Active Problems Active Problems: All Active Problems GR[place] (dyspnea on exertion) (Acute) Stable angina (Acute) Abnormal stress test (Acute) Cancer of left kidney (Acute) Vitamin B 12 deficiency (Acute) Cataract (Acute) Neuropathy (Acute) H/O colonoscopy (Acute) Hematochezia (Acute) Anemia (Acute) Renal mass, left (Acute) Lobular breast cancer (Acute) Preop cardiovascular exam (Acute) Abnormal mammogram of left breast (Acute) Annual physical exam (Acute) Paroxysmal A-fib (Acute) Hyperlipidemia (Acute) Dyspnea on exertion (Acute) CAD (coronary artery disease) (Acute) HTN (hypertension) (Acute) Diabetes (Acute) Current use of anticoagulant therapy (Acute) Past Medical History Medical History Renal mass, left Lobular breast cancer Abnormal mammogram of left breast Annual physical exam Paroxysmal A-fib Hyperlipidemia CAD (coronary artery disease) HTN (hypertension) Diabetes Functional capacity: independent ambulation Family History Family History Father No problems noted. Mother No problems noted. Son No problems noted. Family history of problems with anesthesia: No Surgical History Surgical History Hx of cataract surgery History of section History of breast biopsy H/O colonoscopy History of Problems with Anesthesia: No Social History Social History Household Members: Spouse Housing: House Are you a primary care center manager to a significant other at home: No Do you presently have visiting nurse or other home services: No Alcohol intake: never Patient Tobacco Use Status: Never used Tobacco e-Cigarette/Vaping Use: Never Used Have you been hit, kicked, punched, or otherwise hurt by someone within the past year? If so, by whom?: No Are you DNR?: No Advance Directives: No Advance Directives Information Provided: Yes Poor oral hygiene: Yes service: No Current occupational status: retired Cognitive needs: No Hearing needs: No Vision needs: Yes Meds Allergies Allergy/AdvReac Type Severity Reaction Status Date / Time No Known Allergies (No Known Allergy Verified 01/17/25 08:00 Allergies*) Active Medications: Current Medications Lactated Ringer's (Lr) 1,000 mls @ 100 mls/hr IVCONT .Q10H LUCA Last Admin: 01/17/25 08:33 Dose: 100 mls/hr Home Medications ?Medication ?Instructions ?Recorded ?Confirmed ?Last Taken ?Type vitamins A,C,G-sxns-asmzrw 4,296 1 cap PO BID 07/30/21 01/17/25 Unknown History mcg-226 mg-90 mg capsule (PreserVision AREDS) apixaban 5 mg tablet (Eliquis) 5 mg PO BID 01/17/25 01/17/25 01/14/25 History Exam Height,Weight and Vital Signs: Height 5 ft 1 in Weight 68.039 kg Last Vital Signs Temp 98.0 F 01/17/25 08:41 Pulse 83 01/17/25 08:41 Resp 18 01/17/25 08:41 BP 162/81 H 01/17/25 08:41 Pulse Ox 96 01/17/25 08:41 O2 Del Method Room Air 01/17/25 08:41 Pertinent Lab Results Pertinent Lab Results: Laboratory Tests 01/17/25 08:31 POC Glucose 96 Airway Mallampati Class: III TM Dist: >3cm Neck ROM: Full Denture: Upper Heart: RRR Lungs: CTA Assessment and Plan Assessment Anesthesia Assessment: Anesthesia Plan Discussed and Chart Reviewed Final Anesthetic Review Family History of Problems with Anesthesia: No History of Problems with Anesthesia: No NPO: Yes ASA Class: II and III Final Preanesthetic Review: Meds/Allgs Chart Reviewed, Consent Obtained/Reviewed and Anes Risks/Benef Reviewed Patient Risk: Intermediate Anesthetic Plan Anesthetic Plan: MAC: Disposition: Standard PACU
--- NOTE | 2025-01-17 10:15 | P.OPN-COLO_ITS ---
Colonoscopy Operative Note Operative Note Date of Service: 01/17/25 Narrative: Procedure: Upper endoscopy and colonoscopy Indication: Anemia Endoscopist: Dot Romero MD Anesthesia Provider: Dr Kelin Yang Anesthesia type: MAC Instrument: [id number] and [id number] EGD Procedure:?? The procedure, indications, preparation and potential complications were reviewed with the patient, who indicated understanding and gave written informed consent to proceed. The endoscope was introduced through the mouth, and advanced to the 2nd part of the duodenum. The mucosa was carefully examined on slow withdrawal of the endoscope. The patient tolerated the procedure well. There were no immediate complications.? EGD Findings:? * Esophagus:? Normal esophageal mucosa was noted. The Z-line was at 35 cm and displaced by a small hiatal hernia.. * Stomach:? Erythema and erosions in the antrum. Retroflexion was performed in the cardia. Random cold forceps biopsies were taken from the stomach body and antrum. * Duodenum:? Normal duodenal mucosa. Cold forceps biopsies were taken from the duodenal bulb and 2nd portion of the duodenum to rule out celiac sprue. Colonoscopy Procedure:? The patient was then turned for the colonoscopy. A digital rectal exam was performed which was normal.? A distal attachment cap was affixed to the tip of the scope and the colonoscope was then inserted through the anus and advanced through the colon and advanced to the cecum at 75 cm and terminal ileum.? Appendiceal orifice and ileocecal valve were identified. Mucosa was carefully examined under high definition white light as the instrument was slowly withdraw n in a retrograde panoramic fashion. Retroflexion was performed in rectum. The procedure was not difficult. The quality of the prep was BBPS: 2+3+2 = adequate Withdrawal time 6 minutes Limitations: No limitations Findings: Mucosa: Normal colon and terminal ileum mucosa. Cold forceps biopsies were taken from the right and left side of the colon rule out microscopic colitis. Protruding lesions: * Medium internal hemorrhoids without stigmata of recent bleeding. Impression: 1. Normal esophagus 2. Hiatal hernia 3. Gastritis (biopsy) 4. Normal duodenum (biopsy) 5. Normal colon and terminal ileum mucosa (biopsy) 6. Internal hemorrhoids Recommendations:?? * Follow-up path results * Cont PPI and H2 alex * Avoid NSAIDs * H Pylori treatment if biopsies + * Repeat colonoscopy for CRC screening not recommended due to age. * Possibly had ulceration and/or severe gastritis leading to anemia, which now appears [id number] after patient has been on anti secretory therapy. However, if concern for ongoing GI loss remains, can consider small bowel evaluation.
[2025-01-17 10:18] VITALS: BP 91/44; PULSE 66; RESP 18; TEMP 36.1; O2SAT 92
[2025-01-17 10:20] VITALS: BP 89/48; PULSE 62; RESP 18; O2SAT 92
[2025-01-17 10:30] VITALS: BP 110/59; PULSE 70; RESP 18; O2SAT 96
--- NOTE | 2025-01-17 11:36 | HO.POSTANES ---
Post Anesthesia Evaluation Post Anesthesia Evaluation Date of Service: 01/17/25 Vital Signs: Vital Signs Temp Pulse Resp BP Pulse Ox O2 Del Method 01/17/25 10:30 70 18 110/59 L 96 Room Air 01/17/25 10:20 62 18 89/48 L 92 Room Air 01/17/25 10:18 97 F 66 18 91/44 L 92 Room Air 01/17/25 08:41 98.0 F 83 18 162/81 H 96 Room Air Anesthesia: Monitored Mental Status: Awake Pain Control: Satisfactory Nausea/Vomiting: None Hydration: Adequate Anesthesia-Related Issues: No Anes. Related Issues
== END 2025-01-17 11:39 | disposition home or self-care (01) ==
PROVIDERS: PCP Internal Medicine; Visit Provider Internal Medicine
PROC: (CPT 45380; principal; 2025-01-17 09:30)
DX: D64.9 Anemia, unspecified (principal); K52.9 Noninfective gastroenteritis and colitis, unspecified; K64.8 Other hemorrhoids; K29.60 Other gastritis without bleeding; K44.9 Diaphragmatic hernia without obstruction or gangrene; E11.9 Type 2 diabetes mellitus without complications; I10 Essential (primary) hypertension; E78.5 Hyperlipidemia, unspecified; I48.0 Paroxysmal atrial fibrillation; E53.8 Deficiency of other specified B group vitamins; C50.912 Malignant neoplasm of unspecified site of left female breast; C64.2 Malignant neoplasm of left kidney, except renal pelvis; Z79.01 Long term (current) use of anticoagulants
CPT/HCPCS: 45380; 43239; 82947; 88305; 88313; 88342; J2003; J2704

== ENCOUNTER → 2025-01-17 06:46 | Outpatient (BNV) | payer MEDICARE, MEDICAID, SELFPAY | PROVIDERS: PCP Internal Medicine; Visit Provider Internal Medicine | DX: D64.9 Anemia, unspecified (principal); K44.9 Diaphragmatic hernia without obstruction or gangrene; K64.8 Other hemorrhoids | CPT/HCPCS: 43239; 45380 ==

== ENCOUNTER 2025-01-22 06:08 | Outpatient (REF) | payer MEDICARE, MEDICAID, SELFPAY ==
--- OUTSIDE RECORDS SUMMARY | 2025-01-22 06:11 | XMS_ITS ---
Author Organization 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 Treatments may have been administered in another system.
--- OUTSIDE RECORDS SUMMARY | 2025-01-22 06:11 | XMS_ITS | Clinical Summary ---
Author Organization [facility] Address [address] [place] [address] Care Team Providers Care Catering Staff Member Name Role Phone Traci Salinas MD Primary Care Provider [phone] Allergies No known active allergies Medications Medication [...] from 07/22/2021:Stage IIB(cT2, cN0, cM0, G3, ER-, MO-, HER2-) - Signed by Sowmya Ackerman MD on 08/03/2021 Coronary artery disease invo lving [place] coronary artery of [place] heart without angina pectoris 08/03/2021 Stented coronary [...] 72 11/07/2023 10:32 AM EDT Temperature 37.2 C (99 F) 11/07/2023 10:32 AM EDT Respiratory Rate 18 [...] 2) 1968 Colon Cancer Screening (Colonoscopy) 1994 Fall Risk Assessment 2014 Osteoporosis Screening (DEXA Scan) 2014 DTap / Tdap / Td (2 - Td or Tdap) 01/30/2020 010 COVID-19 Vaccine (2 - Pfizer risk series) 04/24/2022 04/03/2022 RSV Adult > 60+ Yrs or Pregn ant (1 - 1-dose 75+ series) 2024 Influenza Vaccine (#1) 2025 01/29/2010 Hepatitis B Vaccines Aged Out No long er eligible based on patient's age to complete this topic RSV Ped < 20 months Aged Out No longe r eligible based on patient's age to complete this topic Care Teams Catering Staff Member Relationship Specialty Start Date End Date Traci Salinas MD [address] [place] [id number] PCP - General Locket Maker 07/31/21
[2025-01-22 10:50] LABS: MANUAL DIFF FLAG NO
[2025-01-22 10:56] LABS: Hematocrit 34.7 % (37.0-47.0); Hemoglobin 11.3 g/dl (12.0-16.0); Imm Gran Abs Auto 0.01 X10*3/uL (0.00-0.03); Imm Gran Pct Auto 0.2 % (0.0-0.4); Lymphocytes Absolute Auto 1.9 X10*3/uL (1.2-4.9); Mean Corpuscular HGB Conc 32.6 g/dl (31.0-35.0); Mean Corpuscular Hemoglobin 30.2 pg (27.0-33.0); Mean Corpuscular Volume 92.8 fL (80.0-98.0); NRBC Abs Auto 0.000 X10*3/uL (0.0-0.012); NRBC Pct Auto 0.0 /100WBC (0.0-0.2); Platelet Count 196 X10*3/uL (160-400); Red Blood Count 3.74 X10*6/uL (4.20-5.50); White Blood Count 6.3 X10*3/uL (4.8-10.8)
[2025-01-22 11:54] LABS: Alanine Aminotransferase 18 U/L (0-31); Albumin Level 4.2 g/dL (3.5-5.0); Alkaline Phosphatase 94 U/L (39-117); Anion Gap 12 (12-20); Aspartate Amino Transferase 30 U/L (5-31); Blood Urea Nitrogen 16 mg/dL (9-16); Calcium 9.2 mg/dL (8.4-10.2); Carbon Dioxide 26 mmol/L (22-29); Chloride 111 mmol/L (96-108); Estimated Glomerular Filt Rate > 60; Folate 12.3 ng/mL (> or = 4.0); Potassium 4.7 mmol/L (3.3-5.1); Sodium 144 mmol/L (135-145); Total Protein 6.4 g/dL (6.5-8.0); Triglycerides 61 mg/dL (<150); Vitamin B12 715 pg/mL (200-900)
[2025-01-22 13:23] LABS: Cholesterol 89 mg/dL (<200); HDL Cholesterol 31 mg/dL (>40); Iron 45 mcg/dL (30-160); Percent Iron Saturation 16 % (15-50); Total Iron Binding Capacity 274 mcg/dL (228-428); Unsaturated Iron Binding 229 ug/dL
== END 2025-01-22 06:09 | disposition home or self-care (01) ==
LOC: HO.HMGCLDS 06:08
PROVIDERS: PCP Internal Medicine; Visit Provider Internal Medicine
DX: I48.0 Paroxysmal atrial fibrillation (principal); E11.9 Type 2 diabetes mellitus without complications; I10 Essential (primary) hypertension; I25.10 Atherosclerotic heart disease of native coronary artery without angina pectoris; E78.5 Hyperlipidemia, unspecified; D64.9 Anemia, unspecified; Z79.01 Long term (current) use of anticoagulants; Z79.84 Long term (current) use of oral hypoglycemic drugs; Z79.899 Other long term (current) drug therapy
CPT/HCPCS: 36415; 80053; 80061; 82607; 82746; 83036; 83540; 85025; 99212

== ENCOUNTER 2025-01-22 08:51 | Outpatient (AMB) | payer MEDICARE, MEDICAID, SELFPAY ==
[2025-01-22 08:52] VITALS: BP 124/66; PULSE 79; RESP 18; TEMP 36.7; O2SAT 97; BMI 29.1
--- NOTE | 2025-01-22 08:52 | A.OFFPC_ITS ---
Vital Signs 01/22/25 08:52 Height 5 ft 1 in Weight 154 lb BMI 29.1 BP 124/66 Blood Pressure Location Rt brachial Position Sitting Respiration 18 Pulse 79 Pulse Source Pulse Oximeter Temp 98.1 F Temp Source Oral Pulse Oximetry (%) 97 Oxygen Delivery Method Room Air Intake Visit Reasons: 2m Follow up Allergies No Known Allergies (No Known Allergies*) Allergy (Verified 01/22/25 08:56) Medication List - Last Reconciled 01/22/25 by Traci Salinas MD amlodipine 5 mg PO DAILY apixaban (Eliquis) 5 mg PO BID Held on 01/17/25. Instructions: Resume on 01/18/25. Can resume tomorrow ascorbic acid (vitamin C) (Vitamin C) 500 mg PO DAILY atorvastatin 80 mg PO DAILY blood sugar diagnostic ([employer] Ver[employer] test strips) 1 strip miscellaneous DAILY blood-glucose meter ([employer] Verio Meter) As directed calcium carbonate 1 tab PO DAILY cholecalciferol (vitamin D3) 25 mcg PO DAILY cyanocobalamin (vitamin B-12) 1,000 mcg PO DAILY ezetimibe (Zetia) 10 mg PO DAILY famotidine (Pepcid) 20 mg PO BEDTIME ferrous sulfate 325 mg PO DAILY isosorbide mononitrate ER 30 mg PO DAILY lancets ([employer] Delica Lancets) Test blood sugar once a day lisinopril 20 mg PO DAILY metformin 500 mg PO BID metoprolol tartrate 25 mg PO BID omeprazole 20 mg PO DAILY vitamins A,C,I-qeoc-yznliz 4,296 mcg-226 mg-90 mg (PreserVision AREDS) 1 cap PO BID Tobacco use date assessed: 01/22/25 Fall risk assessment: No Falls in past year Last assessed Fall Risk: 01/22/25 Dental Screening Dental Screen Date: 08/15/24 HPI 2m Follow up HPI Details Patient presents for the follow-up of type 2 diabetes hyperlipidemia hypertension. She underwent GI workup which was negative for acute anemia corrected after 2 unit of PRBC's. Patient is established with Hematology. Patient denies chest pain shortness or breath PND or orthopnea. She has been taking aspirin and Eliquis for status post RCA stent placement in April of 2024 and a history of chronic AFib. Patient denies hematochezia or melena. [facility] Medical History (Updated 01/22/25 @ 11:14 by Traci Salinas MD) Anemia Renal mass, left Lobular breast cancer Abnormal mammogram of left breast Annual physical exam Paroxysmal A-fib Hyperlipidemia CAD (coronary artery disease) HTN (hypertension) Diabetes Surgical History (Updated 01/22/25 @ 11:18 by Traci Salinas MD) Hx of cataract surgery History of section History of breast biopsy H/O colonoscopy Family History Father No problems noted. Mother No problems noted. Son No problems noted. Social History Household Members: Spouse Housing: House Are you a primary healthcare economics manager to a significant other at home: No Do you presently have visiting nurse or other home services: No Alcohol intake: never Patient Tobacco Use Status: Never used Tobacco e-Cigarette/Vaping Use: Never Used service: No Current occupational status: retired Cognitive needs: No Hearing needs: No Vision needs: Yes Questionnaire Thrive Questionnaire Date Thrive assessed: 08/15/24 SARAH-7 AMB Questionnaire SARAH-7 Date SARAH - 7 assessed: 08/15/24 Source: Developed by Drs. Stuart Hu, Gloria Patel, Juan A Maya and colleagues, with an educational meka from [employer]. Review of Systems Const All systems reviewed & are unremarkable except as noted in HPI and below Eyes Reports no additional complaints ENT Reports no additional complaints Card Reports no additional complaints Resp Reports no additional complaints GI Reports no additional complaints Reports no additional complaints Physical exam (Primary Care) Vital Signs: Last Vital Signs Temp 98.1 F 01/22/25 08:52 Pulse 79 01/22/25 08:52 Resp 18 01/22/25 08:52 BP 124/66 01/22/25 08:52 Pulse Ox 97 01/22/25 08:52 Oxygen Delivery Method Room Air 01/22/25 08:52 BMI result Body Mass Index 29.1 Tobacco/Smoking Status: Tobacco use Status Tobacco use date assessed 01/22/25 01/22/25 08:57 Patient Tobacco Use Status Never used Tobacco 01/22/25 08:54 e-Cigarette/Vaping Use Never Used 09/02/25 08:54 Thrive Assessment: Date of Thrive Assessment Date Thrive assessed 08/15/24 01/22/25 08:54 Const General: no acute distress HENMT Head: Yes normal to inspection Face and sinus: Yes normal facial exam Mouth: Normal oral and palatal mucosa present Eyes General: appearance normal, both eyes and all related structures Resp Effort & Inspection: normal respiratory effort Auscultation: clear to auscultation bilaterally Cardio Rhythm: regular rhythm Heart sounds: S1 normal heart sound present and S2 normal heart sound present GI Inspection: Yes normal to inspection Palpation (GI): Soft to palpation Percussion: Yes normal to percussion Auscultation: normal bowel sounds Coding Level of Care Code Est Pt Level 4 (87082) Diagnoses HTN (hypertension) I10 CAD (coronary artery disease) I25.10 Paroxysmal A-fib I48.0 Hyperlipidemia E78.5 Diabetes E11.9 Anemia, unspecified type D64.9 Anemia type: unspecified type Assessment & Plan Assessment & Plan (1) HTN (hypertension): Comment: BP goal less than 130/80 Code(s): I10 - Essential (primary) hypertension Category: Medical Plan: Continue current medications (2) CAD (coronary artery disease): Comment: s/p DEYANIRA to cx for NSTEMI 05/2019 cardiac cath RCA chronic occluded, cardiac cath 04/2024 : RCA occluded, patent LCx stent, LAD minimal luminal irregularities Code(s): I25.10 - Atherosclerotic heart disease of [place] coronary artery without angina pectoris Category: Medical Plan: Continue current medications follow-up with Cardiology (3) Paroxysmal A-fib: Comment: Episode of AFib post MD Code(s): I48.0 - Paroxysmal atrial fibrillation Category: Medical Plan: Rate controlled on metoprolol and anticoagulated on Eliquis (4) Hyperlipidemia: Code(s): E78.5 - Hyperlipidemia, unspecified Category: Medical Plan: Continue statin (5) Diabetes: Comment: A1C <7 Code(s): E11.9 - Type 2 diabetes mellitus without complications Category: Medical Plan: Check A1c today. Continue ADA diet current medications follow-up in 3 months with a fasting labs before (6) Anemia: Comment: Acute symptomatic s/p 2 u RBC 11/2024, negative EGD and colonoscopy, established with Hematology Code(s): D64.9 - Anemia, unspecified Category: Medical Qualifiers: Anemia type: unspecified type Qualified Code(s): D64.9 - Anemia, un specified Plan: Monitor by Hematology Orders: Orders Hemoglobin A1c 3 Months E11.9 - Type 2 diabetes mellitus without complications, I10 - Essential (primary) hypertension, I25.10 - Atherosclerotic heart disease of [place] coronary artery without angina pectoris Comprehensive [place] Sta. Panel Fast 3 Months E11.9 - Type 2 diabetes mellitus without complications, I10 - Essential (primary) hypertension, I25.10 - At herosclerotic heart disease of [place] coronary artery without angina pectoris Complete Blood Count Auto Diff 3 Months E11.9 - Type 2 diabetes mellitus without complications, I10 - Essential (primary) hypertension, I25.10 - Atherosclerotic heart disease of [place] coronary artery without angina pectoris IRON PROFILE 3 Months E11.9 - Type 2 diabetes mellitus without complications, I10 - Essential (primary) hypertension, I25.10 - Atherosclerotic heart disease of [place] coronary artery without angina pectoris Microalbumin, Random (w Creat) 3 Months E11.9 - Type 2 diabetes mellitus without complications, I10 - Essential (primary) hypertension, I25.10 - Atherosclerotic heart disease of [place] coronary artery without angina pectoris Lipid Panel 3 Months E11.9 - Type 2 diabetes mellitus without complications, I10 - Essential (primary) hypertension, I25.10 - Atherosclerotic heart disease o f [place] coronary artery without angina pectoris
== END 2025-01-22 09:33 | disposition home or self-care (01) ==
LOC: HO.HMCC 08:51
PROVIDERS: PCP Internal Medicine; Visit Provider Internal Medicine
DX: I10 Essential (primary) hypertension (principal); I48.0 Paroxysmal atrial fibrillation; E11.69 Type 2 diabetes mellitus with other specified complication; I25.10 Atherosclerotic heart disease of native coronary artery without angina pectoris; E78.5 Hyperlipidemia, unspecified; D64.9 Anemia, unspecified

== ENCOUNTER 2025-01-30 09:56 | Outpatient (AMB) | payer MEDICARE, MEDICAID, SELFPAY ==
--- NOTE | 2025-01-30 10:06 | MHC.OFFVIS ---
Vital Signs 01/30/25 10:15 Height 5 ft 1 in Weight 154 lb BMI 29.1 BP 138/66 Blood Pressure Location Lt brachial Position Sitting Pulse 74 Pulse Source Pulse Oximeter Pulse Oximetry (%) 97 Oxygen Delivery Method Room Air Intake Visit Reasons: s/p EGD colo Nick Intake Note: Est pt for mgmt of anemia. S/P double. CC; Pt denies any GI sx or concerns at this time. Attempted to get [place]uran client success director however; a helpful candidate was not found. As much assistance was provided as possible with Bhutanese. [place]uran provider then promptly took over as this was at best interest for the pt. Transcribing Operator Head Required: Yes Transcribing Operator Head Services: Transcribing Operator Head Present (Transcribing Operator Head attempted but was not helpful for the pt. Attempted x3. Transcribing Operator Head [id number] was not helping the pt adequately) Information Interpreted: clinical only Accompanied by: Self / Same As Patient Allergies No Known Allergies (No Known Allergies*) Allergy (Verified 01/30/25 10:06) HPI HPI s/p EGD colo Nick: Details: LAST VISIT Anemia Screen for colon cancer GERD (gastroesophageal reflux disease) Plan Patient will be sent for upper endoscopy and colonoscopy. We are able to schedule her next . Patient denies any issues with anesthesia in the past. No history of sleep apnea. Not on any anticoagulation medication. Patient can continue taking omeprazole in the morning and famotidine at bedtime.. She will restart Eliquis today and aspirin. Currently patient is taking iron supplements. Today's H&H improved. Message sent to her oncologist as well as her grades 7 8 tutor. Urology Teacher cleared her: intermediate risk for the procedure. Patient will stop her Eliquis Tuesday. May take aspirin. What to expect before during and after procedure discussed with patient. Stressed the importance of good liquid diet and good bowel prep day before procedure. She is agreeable to current plan of care and verbalizes understanding of instructions. She was given the opportunity to ask questions and all questions answered. ? Thank you for allowing me to participate in her care New bisacodyl (Dulcolax (bisacodyl)) take 4 tabs at noon the day before your colonoscopy 20 mg (4 x 5 mg) PO ONCE 4 tabs 0RF constipation 1 day Z12.11 polyethylene glycol 3350 (Miralax) As directed by gastroenterology department at [facility] 238 grams PO ONCE 238 grams 0RF Z12.11 UPPER ENDOSCOPY AND COLONOSCOPY EGD Findings:? Esophagus:? Normal esophageal mucosa was noted. The Z-line was at 35 cm and displaced by a small hiatal hernia.. Stomach:? Erythema and erosions in the antrum. Retroflexion was performed in the cardia. Random cold forceps biopsies were taken from the stomach body and antrum. Duodenum:? Normal duodenal mucosa. Cold forceps biopsies were taken from the duodenal bulb and 2nd portion of the duodenum to rule out celiac sprue. Colonoscopy Procedure:? The patient was then turned for the colonoscopy. A digital rectal exam was performed which was normal.? A distal attachment cap was affixed to the tip of the scope and the colonoscope was then inserted through the anus and advanced through the colon and advanced to the cecum at 75 cm and terminal ileum.? Appendiceal orifice and ileocecal valve were identified. Mucosa was carefully examined under high definition white light as the instrument was slowly withdrawn in a retrograde panoramic fashion. Retroflexion was performed in rectum. The procedure was not difficult. The quality of the prep was BBPS: 2+3+2 = adequate Withdrawal time 6 minutes Limitations: No limitations Findings: Mucosa: Normal colon and terminal ileum mucosa. Cold forceps biopsies were taken from the right and left side of the colon rule out microscopic colitis. Protruding lesions: Medium internal hemorrhoids without stigmata of recent bleeding.Impression: 1. Normal esophagus 2. Hiatal hernia 3. Gastritis (biopsy) 4. Normal duodenum (biopsy) 5. Normal colon and terminal ileum mucosa (biopsy) 6. Internal hemorrhoids Recommendations:?? Follow-up path results Cont PPI and H2 alex Avoid NSAIDs H Pylori treatment if biopsies + Repeat colonoscopy for CRC screening not recommended due to age. Possibly had ulceration and/or severe gastritis leading to anemia, which now appears [id number] after patient has been on anti secretory therapy. However, if concern for ongoing GI loss remains, can consider small bowel evaluation. PATHOLOGY RESULTS Diagnosis A. Duodenum, biopsy: Duodenal mucosa within normal limits. B. Stomach, antrum, biopsy: Reactive gastropathy with focal intestinal metaplasia; negative for dysplasia; no Helicobacter organisms seen. C. Stomach, body, biopsy: Oxyntic mucosa with mild chronic inactive inflammation; no Helicobacter organisms seen. D. Colon, right, biopsy: Colonic mucosa within normal limits. E. Colon, left, biopsy: Chronic inactive colitis. See comment. Comment: Focal paneth cell metaplasia is present in E; no dysplasia is seen. Diagnostic morphologic features of microscopic colitis are not seen TODAY'S VISIT Patient is here today for follow-up and to discuss upper endoscopy and colonoscopy results. Patient denies any ill effects from the prep, anesthesia or procedure itself. Patient reports to be feeling fairly well. Patient was taking omeprazole for couple weeks after the procedure, however she states that she stopped as her symptoms of epigastric pain and acid reflux went away. Currently patient is not taking any PPI or H2 alex. Her symptoms for now are suppressed. Patient is trying to avoid dietary triggers. Patient had normal colonoscopy. Mild gastritis without dysplasia or H pylori. Normal esophagus and duodenum. [facility] Medical History (Updated 01/30/25 @ 13:58 by Tasha Washburn, [facility]) GERD (gastroesophageal reflux disease) Anemia Renal mass, left Lobular breast cancer Abnormal mammogram of left breast Annual physical exam Paroxysmal A-fib Hyperlipidemia CAD (coronary artery disease) HTN (hypertension) Diabetes Surgical History Hx of cataract surgery History of section History of breast biopsy H/O colonoscopy Family History Father No problems noted. Mother No problems noted. Son No problems noted. Social History Household Members: Spouse Housing: House Are you a primary physician assistant primary care to a significant other at home: No Do you presently have visiting nurse or other home services: No Alcohol intake: never Patient Tobacco Use Status: Never used Tobacco e-Cigarette/Vaping Use: Never Used service: No Current occupational status: retired Cognitive needs: No Hearing needs: No Vision needs: Yes Review of Systems Const Denies weight gain and Denies weight loss ENT Reports no additional complaints, Denies dysphagia and Denies odynophagia Card Reports no additional complaints Resp Reports no additional complaints GI Denies abdominal pain, Denies belching, Denies melena, Denies bloating, Denies change in bowel habits, Denies dysphagia, Denies excessive flatus, Denies dyspepsia, Denies heartburn, Denies diarrhea, Denies loose stools, Denies nausea, Denies odynophagia and Denies vomiting Musc Reports no additional complaints Neuro Reports no additional complaints Psych Reports no additional complaints Endo Reports no additional complaints Physical Exam Vital Signs: Last Vital Signs Pulse 74 01/30/25 10:15 BP 138/66 01/30/25 10:15 Pulse Ox 97 01/30/25 10:15 Oxygen Delivery Method Room Air 01/30/25 10:15 BMI result Body Mass Index 29.1 Const General: healthy appearing, no acute distress and well developed Nutritional Appearance: well nourished Orientation/consciousness: patient oriented x3 Resp Effort & Inspection: normal respiratory effort, able to speak in complete sentences, no tracheal deviation and symmetric chest movement Auscultation: clear to auscultation bilaterally Cardio Rate: regular rate GI Inspection: Yes normal to inspection and No distended Palpation (GI): Soft to palpation, not firm, nontender and No hepatosplenomegaly present Auscultation: normal bowel sounds General: Yes no CVA tenderness Back/Spine/Pelvis Back: no CVA tenderness Skin General skin exam: elasticity normal, turgor normal and dry skin Neuro General: patient oriented x3 Psych Appearance: grossly normal Mental Status: mental status grossly normal Assessment & Plan Assessment & Plan (1) GERD (gastroesophageal reflux disease): Code(s): K21.9 - Gastro-esophageal reflux disease without esophagitis Category: Medical Qualifiers: Esophagitis presence: without esophagitis Qualified Code(s): K21.9 - Gastro-esophageal reflux disease without esophagitis (2) H/O colonoscopy: Comment: 08/2017, hyperplastic polyp. 11/2024 negative Code(s): Z98.890 - Other specified postprocedural states Category: Surgical (3) Postprandial epigastric pain: Code(s): R10.13 - Epigastric pain Plan Discussed with patient the importance of taking the omeprazole. Mild gastritis seen. Her anemia could been caused by small upper GI bleed from possible ulcer that was healed with omeprazole. Patient avoid dietary triggers and late night snacking. Staying upright for minimum 3 hours after meals discussed with patient. Patient will follow-up in 6 months, sooner on as needed basis. She is agreeable to this plan and verbalizes understanding of instructions. She was given the opportunity to ask questions and all questions answered. Thank you for allowing me to participate in her care Medications: Refilled omeprazole 20 mg PO DAILY 90 caps 3RF Coding Level of Care Code Est Pt Level 4 (34853) Complex EM visit Add On G2211 Diagnoses Gastroesophageal reflux disease without esophagitis K21.9 Esophagitis presence: without esophagitis H/O colonoscopy Z98.890 Postprandial epigastric pain R10.13 Time Spent (min) 35 Comment 25 minutes spent with patient and additional 10 minutes spent reviewing her records
[2025-01-30 10:15] VITALS: BP 138/66; PULSE 74; O2SAT 97; BMI 29.1
--- OUTSIDE RECORDS SUMMARY | 2025-01-30 12:01 | XMS_ITS ---
Author Organization 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 Past Plans ONCOLOGY TREATMENT Plan Name Start Date Discontinue Date Treatment Medications Discontinue Reason Plan Provider Cycles [facility] OP Pembrolizumab + Paclitaxel + [...] treatments are documented for this patient in [facility]. Treatments may have been administered in another system.
--- OUTSIDE RECORDS SUMMARY | 2025-01-30 12:01 | XMS_ITS | Clinical Summary ---
Author Organization [facility] Address [address] [place] [address] Care Team Providers Care Laboratory Monitor Name Role Phone Traci Salinas MD Primary Care Provider [phone] Allergies No known active allergies Medications Medication [...] ER-, [place]-, HER2-) - Signed by Sowmya Ackeramn MD on 08/03/2021 Coronary artery disease invo lving [place] coronary artery of [place] heart without angina pectoris 08/03/2021 Stented coronary [...] age to complete this topic Care Teams Laboratory Monitor Relationship Specialty Start Date End Date Traci Salinas MD [address] [place] [phone] PCP - General Manager Ob 07/31/21
== END 2025-01-30 10:31 | disposition home or self-care (01) ==
LOC: HO.HGI 09:57
PROVIDERS: PCP Internal Medicine; Visit Provider Nurse Practitioner Family
DX: K21.9 Gastro-esophageal reflux disease without esophagitis (principal); Z98.890 Other specified postprocedural states; R10.13 Epigastric pain
CPT/HCPCS: 99214; G2211

== ENCOUNTER → 2025-01-30 09:56 | Outpatient (BNVA) | payer MEDICARE, MEDICAID, SELFPAY | PROVIDERS: PCP Internal Medicine; Visit Provider Nurse Practitioner Family | DX: K21.9 Gastro-esophageal reflux disease without esophagitis (principal); R10.13 Epigastric pain | CPT/HCPCS: 99212 ==

== ENCOUNTER 2025-02-22 13:30 | Outpatient (REF) | payer MEDICARE, MEDICAID, SELFPAY ==
--- NOTE | ~2025-02-22 | US_ITS ---
EXAMINATION: US RETROPERITONEAL LIMITED (RENAL ONLY) CLINICAL INFORMATION: History of left renal cell carcinoma postcryoablation. COMPARISON: Previous CT of the abdomen and pelvis October 2017 and renal and bladder ultrasound February 2024 TECHNIQUE: Grayscale and color imaging of the kidneys FINDINGS: RIGHT KIDNEY: 11.1 x 5.7 x 4.5 cm (SAG x AP x TRV). The kidney is normal in size, contour, and echogenicity. Renal cortical thickness is normal. 1.6 x 2 x 1.7 cm simple cyst in the lower pole and 9 x 7 x 8 mm simple cyst in the midpole. No calculi or solid parenchymal lesions. No hydronephrosis. LEFT KIDNEY: 10.2 x 4.7 x 3.6 cm (SAG x AP x TRV). The kidney is normal in size, contour, and echogenicity. Renal cortical thickness is normal. 2.6 x 2.3 x 2.4 cm heterogeneous solid partially hyperechoic partially hypoechoic lesion exophytic to the lateral lower pole presumably representing post cryoablation changes. This does not appear appreciably changed in size or ultrasound appearance from February 2024. Previously hyperechoic component measured 1.7 x 1.7 x 2.4 cm. Repeat measurements including both the hyper and hypoechoic components measure 2.3 x 2.5 x 2.8 cm and is probably not appreciably changed. No calculi No hydronephrosis. US/US renal BI IMPRESSION: Right: Right renal cysts. Left: Stable appearance to heterogeneous lesion exophytic to the lateral lower pole of the left kidney probably representing postcryoablation change from February 2024. Electronically signed by: Bessy Hernandez MD 02/22/2025 03:14 PM EDT
--- OUTSIDE RECORDS SUMMARY | 2025-02-22 13:48 | XMS_ITS | Clinical Summary ---
Author Organization [facility] Address [address] [place] [address] Care Team Providers Care Human Resources Talent Manager Name Role Phone Traci Salinas MD Primary Care Provider [phone] Allergies No known active allergies Medications Medication [...] from 07/22/2021:Stage IIB(cT2, cN0, cM0, G3, ER-, [place]-, HER2-) - Signed by Sowmya Ackerman MD on 08/03/2021 Coronary artery disease invo lving [place] coronary artery of [place] heart without angina pectoris 08/03/2021 Stented coronary [...] age to complete this topic Care Teams Human Resources Talent Manager Relationship Specialty Start Date End Date Traci Salinas MD [address] [place] [phone] PCP - General Liner Installer 07/31/21
--- OUTSIDE RECORDS SUMMARY | 2025-02-22 13:48 | XMS_ITS ---
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 Past Plans ONCOLOGY TREATMENT Plan Name Start Date Discontinue Date Treatment Medications Discontinue Reason Plan Provider Cycles [facility]N OP Pembrolizumab + Paclitaxel [...] treatments are documented for this patient in [facility]. Treatments may have been administered in another system.
== END 2025-02-22 13:31 | disposition home or self-care (01) ==
LOC: HO.US 13:30
PROVIDERS: PCP Internal Medicine; Visit Provider Nurse Practitioner Family
DX: C64.2 Malignant neoplasm of left kidney, except renal pelvis (principal)
CPT/HCPCS: 76775

== ENCOUNTER → 2025-02-22 13:32 | Outpatient (BNV) | payer MEDICARE, MEDICAID, SELFPAY | PROVIDERS: PCP Internal Medicine; Visit Provider Radiology Diagnostic Radiology | DX: N28.1 Cyst of kidney, acquired (principal) | CPT/HCPCS: 76775 ==

== ENCOUNTER 2025-04-22 08:44 | Outpatient (AMB) | payer MEDICARE, MEDICAID, SELFPAY ==
--- NOTE | 2025-04-22 08:50 | MHC.OFFVIS ---
Vital Signs 04/22/25 08:53 Height 5 ft 1 in Weight 152 lb 8.958 oz BMI 28.8 BP 110/70 Blood Pressure Location Lt brachial Position Sitting Pulse 68 Pulse Source Pulse Oximeter Intake Visit Reasons: 3 Month Follow Up Silo Erector Required: Yes Silo Erector Language: Stateless Silo Erector Name: vostevene/botswanan Accompanied by: Self / Same As Patient Allergies No Known Allergies (No Known Allergies*) Allergy (Verified 03/01/25 09:16) Medication List - Last Reconciled 04/22/25 by Aidan Oliver MD amlodipine 5 mg PO DAILY apixaban (Eliquis) 5 mg PO BID Held on 01/17/25. Instructions: Resume on 01/18/25. Can resume tomorrow ascorbic acid (vitamin C) (Vitamin C) 500 mg PO DAILY atorvastatin 80 mg PO DAILY blood sugar diagnostic (Accu-Chek Guide test strips) Test blood sugar once a day blood-glucose meter (Accu-Chek Guide Glucose Meter) As directed calcium carbonate 1 tab PO DAILY cholecalciferol (vitamin D3) 25 mcg PO DAILY cyanocobalamin (vitamin B-12) 1,000 mcg PO DAILY ezetimibe (Zetia) 10 mg PO DAILY famotidine (Pepcid) 20 mg PO BEDTIME ferrous sulfate 325 mg PO DAILY isosorbide mononitrate ER 30 mg PO DAILY lancets (Accu-Chek Softclix Lancets) Test blood sugar once a day lisinopril 20 mg PO DAILY metformin 500 mg PO BID metoprolol tartrate 25 mg PO BID omeprazole 20 mg PO DAILY vitamins A,C,O-ptch-exnghv 4,296 mcg-226 mg-90 mg (PreserVision AREDS) 1 cap PO BID HPI Comments Details: 74-year-old female here for follow-up. She has history of coronary disease with previous NSTEMI for which she underwent left circumflex artery PCI. At that time she has a right coronary artery PUBLIC RELATIONS COUNSELOR. Subsequent to that she developed atrial fibrillation and was started on Coumadin. She has been maintained on Plavix and Coumadin. Unfortunately she got diagnosed with left breast cancer and is undergoing chemotherapy. She is noted to be anemic and was also complaining of bright red blood per rectum specially when she is wiping at the end of passing stools. Story sounds more like hemorrhoids but due to these issues she was brought to the office for further assessment. Denying any chest pain or shortness of breath. Obviously quite stressed and depressed due to breast cancer and ongoing chemotherapy. [id number] acted as site interpreter. 05/18/2023: She returns for follow-up. She is following with Oncology and has been stable. She is in need of cataract surgery. Denying any other symptoms currently. 09/19/23: She is here for follow-up. She has been doing well. No chest discomfort shortness of breath. Taking medications regularly. She is stable from breast cancer viewpoint. 03/21/2024: She is here for follow-up. She is complaining of some shortness of breath with activity as well as upper chest discomfort. She is saying this lasts for 10 minutes and then gets better. He has known history of coronary disease with previous OM PCI as well as RCA PUBLIC RELATIONS COUNSELOR. 06/20/2024: She is here for follow-up. She underwent cardiac catheterization recently because she had hypotension during exercise stress test. We did not notice any significant disease in the left main. OM stent was open and she had known RCA PUBLIC RELATIONS COUNSELOR which was unchanged. On follow-up she is denying any significant symptoms other than numbness and tingling in her hands and feet since she had chemotherapy. 01/07/2025: She is here for follow-up. She was found to have symptomatic anemia early December with hemoglobin of 7.1. Her aspirin and Eliquis were held and she was transfused with blood and also received some iron. She is following closely with Hematology. He is saying that she is feeling much better at this point. She continues to hold aspirin and Plavix at this stage. She has background of atrial fibrillation as well as coronary disease. 04/22/2025: She is here for follow-up. She is back on Eliquis. Last hemoglobin was 11.1 in February 2025. Aspirin has been discontinued. She is denying any chest discomfort. She does get some shortness of breath with stairs but this has been stable 2. She had repeat angiography in April 2024 which showed patent stent in the OM and known PUBLIC RELATIONS COUNSELOR of the right coronary artery. [facility] Medical History GERD (gastroesophageal reflux disease) Anemia Renal mass, left Lobular breast cancer Abnormal mammogram of left breast Annual physical exam Paroxysmal A-fib Hyperlipidemia CAD (coronary artery disease) HTN (hypertension) Diabetes Surgical History Hx of cataract surgery History of section History of breast biopsy H/O colonoscopy Family History Father No problems noted. Mother No problems noted. Son No problems noted. Social History Household Members: Spouse Housing: House Are you a primary hospice care transitions coordinator to a significant other at home: No Do you presently have visiting nurse or other home services: No Alcohol intake: never Patient Tobacco Use Status: Never used Tobacco e-Cigarette/Vaping Use: Never Used service: No Current occupational status: retired Cognitive needs: No Hearing needs: No Vision needs: Yes Review of Systems Const Denies chills, Denies fatigue, Denies fever(s), Denies frequent falls, Denies weakness, Denies weight gain and Denies weight loss ENT Denies dizziness Card Denies chest pain, Denies leg edema, Denies lightheadedness, Denies palpitations, Denies dyspnea and Denies dyspnea on exertion Resp Denies cough, Denies dyspnea and Denies dyspnea on exertion GI Denies hematochezia Musc Denies abnormal gait, Denies muscle weakness, Denies numbness, Denies radiating pain into limb and Denies tingling Neuro Denies abnormal gait, Denies dizziness, Denies frequent falls, Denies numbness, Denies tingling and Denies weakness Endo Denies fatigue and Denies palpitations Physical Exam Vital Signs: Last Vital Signs Pulse 68 04/22/25 08:53 BP 110/70 04/22/25 08:53 BMI result Body Mass Index 28.8 GENERAL APPEARANCE: in no acute distress, pleasant. NECK: no carotid bruit, no jugular venous distention. SKIN: no suspicious lesions, warm and dry. HEART: no murmurs, regular rate and rhythm. LUNGS: clear to auscultation bilaterally. ABDOMEN: soft, nontender. EXTREMITIES: no edema. PERIPHERAL PULSES: equal. NEUROLOGIC: No gross deficits, AAO X 3 Assessment & Plan Assessment & Plan (1) Paroxysmal A-fib: Comment: Episode of AFib post [place] Code(s): I48.0 - Paroxysmal atrial fibrillation Category: Medical (2) CAD (coronary artery disease): Comment: s/p DEYANIRA to cx for NSTEMI 05/2019 cardiac cath RCA chronic occluded, cardiac cath 04/2024 : RCA occluded, patent LCx stent, LAD minimal luminal irregularities Code(s): I25.10 - Atherosclerotic heart disease of [place] coronary artery without angina pectoris Category: Medical Plan Pleasant 74 year female who is here for follow-up. She has background history of coronary artery disease with previous circumflex OM PCI and known PUBLIC RELATIONS COUNSELOR of right coronary artery. She also had paroxysmal atrial fibrillation and has been on Eliquis. She had symptomatic anemia previously when aspirin and Eliquis both were discontinued. She has since then has resumed Eliquis only and hemoglobin has been stable. Aspirin has been discontinued and should not be resumed. Clinically stable. Blood pressure well controlled. Follow up in 6 months. Thank you for allowing me to participate in the care of your patient. Please feel free to contact me if you have any questions. Coding Level of Care Code Est Pt Level 3 (68849) Diagnoses Paroxysmal A-fib I48.0 CAD (coronary artery disease) I25.10
[2025-04-22 08:53] VITALS: BP 110/70; PULSE 68; BMI 28.8
--- OUTSIDE RECORDS SUMMARY | 2025-04-22 09:25 | XMS_ITS | Clinical Summary ---
Author Organization Formerly [facility] Address [address] [place] [address] Care Team Providers Care Armored Cable Machine Operator Name Role Phone Traci Salinas MD Primary Care Provider Allergies No known active allergies Medications Medication [...] on 08/03/2021 Coronary artery disease invo lving [place] coronary artery of [place] heart without angina pectoris 08/03/2021 Stented coronary [...] age to complete this topic Care Teams Armored Cable Machine Operator Relationship Specialty Start Date End Date Traci Salinas MD [address] [place] [id number] PCP - General Email Production Specialist 07/31/21
--- OUTSIDE RECORDS SUMMARY | 2025-04-22 09:25 | XMS_ITS ---
Author Organization [facility] Address [address] [place] [address] Care Team Providers Care Appellate Court Clerk Name Role Phone Traci Salinas MD Primary Care Provider [phone] Active Problems Problem Noted Date Diagnosed Date [...] on 08/03/2021 Coronary artery disease invo lving [place] coronary artery of [place] heart without angina pectoris 08/03/2021 Stented coronary artery 08/03/2021 Current Oncology Plans No current plan information found. Past Plans ONCOLOGY TREATMENT Plan Name Start Date Discontinue Date Treatment Medications Discontinue Reason Plan Provider Cycles [facility] BCN OP Pembrolizumab + Paclitaxel + Carboplatin [...] treatments are documented for this patient in [facility]. Treatments may have been administered in another system.
== END 2025-04-22 09:04 | disposition home or self-care (01) ==
LOC: HO.HCS 08:44
PROVIDERS: PCP Internal Medicine; Visit Provider Internal Medicine Cardiovascular Disease
DX: I48.0 Paroxysmal atrial fibrillation (principal); I25.10 Atherosclerotic heart disease of native coronary artery without angina pectoris
CPT/HCPCS: 99213

== ENCOUNTER → 2025-04-22 08:44 | Outpatient (BNVA) | payer MEDICARE, MEDICAID, SELFPAY | PROVIDERS: PCP Internal Medicine; Visit Provider Internal Medicine Cardiovascular Disease | DX: I48.0 Paroxysmal atrial fibrillation (principal); I25.10 Atherosclerotic heart disease of native coronary artery without angina pectoris; I10 Essential (primary) hypertension | CPT/HCPCS: 99212 ==

== ENCOUNTER 2025-04-29 07:11 | Outpatient (REF) | payer MEDICARE, MEDICAID, SELFPAY ==
--- OUTSIDE RECORDS SUMMARY | 2025-04-29 07:15 | XMS_ITS ---
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 Past Plans ONCOLOGY TREATMENT Plan Name Start Date Discontinue Date Treatment Medications Discontinue Reason Plan Provider Cycles [facility] BCN OP Pembrolizumab + Paclitaxel + Carboplatin [...] %sodium chloride 0.9% bolus (NS) Therapy Complete Subramonia Sowmya Mo MD 17 of 17 cycles started Radiation Treatments * No radiation treatments are documented for this patient in [facility]. Treatments may have been administered in another system.
--- OUTSIDE RECORDS SUMMARY | 2025-04-29 07:15 | XMS_ITS | Clinical Summary ---
Author Organization [facility] Prior to 10/20/24 Address [address] [place] [address] Care Team Providers Care Chicken Cleaner Name Role Phone Traci Salinas MD Primary Care Provider [phone] Allergies No known active allergies Medications Medication [...] from 07/22/2021:Stage IIB(cT2, cN0, cM0, G3, ER-, [place]-, HER2-) - Signed by Sowmya Ackerman MD on 08/03/2021 Coronary artery disease invo lving [place] coronary artery of [place] heart without angina pectoris 08/03/2021 Stented coronary [...] age to complete this topic Care Teams Chicken Cleaner Relationship Specialty Start Date End Date Traci Salinas MD [address] [place] [address] PCP - General Rheumatology Specialist 07/31/21
[2025-04-29 10:45] LABS: MANUAL DIFF FLAG NO
[2025-04-29 11:14] LABS: Alanine Aminotransferase 15 U/L (0-31); Albumin Level 4.3 g/dL (3.5-5.0); Alkaline Phosphatase 81 U/L (39-117); Anion Gap 10 (12-20); Aspartate Amino Transferase 23 U/L (5-31); Blood Urea Nitrogen 20 mg/dL (9-16); Calcium 9.0 mg/dL (8.4-10.2); Carbon Dioxide 26 mmol/L (22-29); Chloride 110 mmol/L (96-108); Cholesterol 95 mg/dL (<200); Estimated Glomerular Filt Rate > 60; HDL Cholesterol 35 mg/dL (>40); Iron 50 mcg/dL (30-160); Percent Iron Saturation 19 % (15-50); Potassium 4.1 mmol/L (3.3-5.1); Sodium 142 mmol/L (135-145); Total Iron Binding Capacity 265 mcg/dL (228-428); Total Protein 6.4 g/dL (6.5-8.0); Triglycerides 77 mg/dL (<150); Unsaturated Iron Binding 215 ug/dL
[2025-04-29 11:23] LABS: Hematocrit 30.7 % (37.0-47.0); Hemoglobin 9.9 g/dl (12.0-16.0); Imm Gran Abs Auto 0.01 X10*3/uL (0.00-0.03); Imm Gran Pct Auto 0.2 % (0.0-0.4); Lymphocytes Absolute Auto 1.8 X10*3/uL (1.2-4.9); Mean Corpuscular HGB Conc 32.2 g/dl (31.0-35.0); Mean Corpuscular Hemoglobin 30.5 pg (27.0-33.0); Mean Corpuscular Volume 94.5 fL (80.0-98.0); NRBC Abs Auto 0.000 X10*3/uL (0.0-0.012); NRBC Pct Auto 0.0 /100WBC (0.0-0.2); Platelet Count 221 X10*3/uL (160-400); Red Blood Count 3.25 X10*6/uL (4.20-5.50); White Blood Count 5.2 X10*3/uL (4.8-10.8)
== END 2025-04-29 07:12 | disposition home or self-care (01) ==
LOC: HO.HMGCLDS 07:11
PROVIDERS: PCP Internal Medicine; Visit Provider Internal Medicine
DX: E11.9 Type 2 diabetes mellitus without complications (principal); I10 Essential (primary) hypertension; I25.10 Atherosclerotic heart disease of native coronary artery without angina pectoris
CPT/HCPCS: 36415; 80053; 80061; 82570; 83036; 83540; 85025

== ENCOUNTER 2025-05-08 08:14 | Outpatient (AMB) | payer MEDICARE, MEDICAID, SELFPAY ==
--- OUTSIDE RECORDS SUMMARY | 2025-05-08 08:20 | XMS_ITS | Clinical Summary ---
Author Organization [facility] Prior to 10/20/24 Address [address] [place] [address] Care Team Providers Care Bed Bug Exterminator Name Role Phone Traci Salinas MD Primary Care Provider [phone] Allergies No known active allergies Medications Medication [...] from 07/22/2021:Stage IIB(cT2, cN0, cM0, G3, ER-, [place]-, HER2-) - Signed by Sowmya Ackerman MD on 08/03/2021 Coronary artery disease invo lving [place] coronary artery of [place] heart without angina pectoris 08/03/2021 Stented coronary [...] age to complete this topic Care Teams Bed Bug Exterminator Relationship Specialty Start Date End Date Traci Salinas MD [address] [place] [address] PCP - General Supply Chain Engineer 07/31/21
--- OUTSIDE RECORDS SUMMARY | 2025-05-08 08:20 | XMS_ITS ---
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 Past Plans ONCOLOGY TREATMENT Plan Name Start Date Discontinue Date Treatment Medications Discontinue Reason Plan Provider Cycles [facility] BCN OP Pembrolizumab + Paclitaxel [...] treatments are documented for this patient in [facility]. Treatments may have been administered in another system.
--- NOTE | 2025-05-08 08:22 | MHC.PC.OV ---
Vital Signs 05/08/25 08:24 Height 5 ft 1 in Weight 153 lb BMI 28.9 BP 124/74 Blood Pressure Location Rt brachial Position Sitting Pulse 77 Pulse Source Pulse Oximeter Temp 97.8 F Temp Source Oral Pulse Oximetry (%) 96 Oxygen Delivery Method Room Air Intake Visit Reasons: PE - see comments Intake Note: Pt is here today for PE. Allergies No Known Allergies (No Known Allergies*) Allergy (Verified 03/01/25 09:16) Medication List - Last Reconciled 05/08/25 by Traci Salinas MD amlodipine 5 mg PO DAILY ascorbic acid (vitamin C) (Vitamin C) 500 mg PO DAILY atorvastatin 80 mg PO DAILY blood sugar diagnostic (Accu-Chek Guide test strips) Test blood sugar once a day blood-glucose meter (Accu-Chek Guide Glucose Meter) As directed calcium carbonate 1 tab PO DAILY cholecalciferol (vitamin D3) 25 mcg PO DAILY cyanocobalamin (vitamin B-12) 1,000 mcg PO DAILY Eliquis (apixaban) 5 mg PO BID NS ezetimibe (Zetia) 10 mg PO DAILY famotidine (Pepcid) 20 mg PO BEDTIME ferrous sulfate 325 mg PO DAILY isosorbide mononitrate ER 30 mg PO DAILY lancets (Accu-Chek Softclix Lancets) Test blood sugar once a day lisinopril 20 mg PO DAILY metformin 500 mg PO BID metoprolol tartrate 25 mg PO BID omeprazole 20 mg PO DAILY vitamins A,C,V-aebf-yglcid 4,296 mcg-226 mg-90 mg (PreserVision AREDS) 1 cap PO BID Tobacco use date assessed: 05/08/25 Fall risk assessment: No Falls in past year Last assessed Fall Risk: 05/08/25 Dental Screening Dental Screen Date: 08/15/24 HPI PE - see comments HPI Details Patient presents for physical PFS Medical History (Updated 05/08/25 @ 09:11 by Traci Salinas MD) Aortic stenosis GERD (gastroesophageal reflux disease) Anemia Lobular breast cancer Abnormal mammogram of left breast Annual physical exam Paroxysmal A-fib Hyperlipidemia CAD (coronary artery disease) HTN (hypertension) Diabetes Surgical History Hx of cataract surgery History of section History of breast biopsy H/O colonoscopy Family History Father No problems noted. Mother No problems noted. Son No problems noted. Social History Household Members: Spouse Housing: House Are you a primary client care consultant to a significant other at home: No Do you presently have visiting nurse or other home services: No Alcohol intake: never Patient Tobacco Use Status: Never used Tobacco e-Cigarette/Vaping Use: Never Used service: No Current occupational status: retired Cognitive needs: No Hearing needs: No Vision needs: Yes Questionnaire Thrive Questionnaire Date Thrive assessed: 08/15/24 SARAH-7 AMB Questionnaire SARAH-7 Date SARAH - 7 assessed: 08/15/24 Source: Developed by Drs. Stuart Hu, Gloria Patel, Juan A Maya and colleagues, with an educational meka from [employer]. Review of Systems Const All systems reviewed & are unremarkable except as noted in HPI and below Eyes Reports no additional complaints ENT Reports no additional complaints Card Reports no additional complaints Resp Reports no additional complaints GI Reports no additional complaints Reports no additional complaints Physical exam (Primary Care) Vital Signs: Last Vital Signs Temp 97.8 F 05/08/25 08:24 Pulse 77 05/08/25 08:24 BP 124/74 05/08/25 08:24 Pulse Ox 96 05/08/25 08:24 Oxygen Delivery Method Room Air 05/08/25 08:24 BMI result Body Mass Index 28.9 Tobacco/Smoking Status: Tobacco use Status Tobacco use date assessed 05/08/25 05/08/25 08:31 Patient Tobacco Use Status Never used Tobacco 05/08/25 08:23 e-Cigarette/Vaping Use Never Used 05/08/25 08:23 Thrive Assessment: Date of Thrive Assessment Date Thrive assessed 08/15/24 05/08/25 08:23 Const General: no acute distress HENMT Head: Yes normal to inspection Mouth: Normal oral and palatal mucosa present Eyes General: appearance normal, both eyes and all related structures Neck Neck: Yes no lymphadenopathy and Yes supple Resp Effort & Inspection: normal respiratory effort Auscultation: clear to auscultation bilaterally Cardio Rhythm: regular rhythm Heart sounds: S1 normal heart sound present and S2 normal heart sound present GI Inspection: Yes normal to inspection Palpation (GI): Soft to palpation Percussion: Yes normal to percussion Auscultation: normal bowel sounds Extrem General: Yes no clubbing, cyanosis or edema Coding Level of Care Code Est Pt Prev Care >65y(92487) Diagnoses HTN (hypertension) I10 Paroxysmal A-fib I48.0 Diabetes E11.9 Cancer of left kidney C64.2 Anemia, unspecified type D64.9 Anemia type: unspecified type Aortic stenosis I35.0 CAD (coronary artery disease) I25.10 Lobular breast cancer C50.919 Annual physical exam Z00.00 Assessment & Plan Assessment & Plan (1) HTN (hypertension): Comment: BP goal less than 130/80 Code(s): I10 - Essential (primary) hypertension Category: Medical Plan: Continue current medications (2) Paroxysmal A-fib: Comment: Episode of AFib post NE, follow-up with [facility] cardiology, on Eliquis for anticoagulation Code(s): I48.0 - Paroxysmal atrial fibrillation Category: Medical Plan: Continue metoprolol and Eliquis follow-up with Cardiology (3) Diabetes: Comment: A1C <7 Code(s): E11.9 - Type 2 diabetes mellitus without complications Category: Medical Plan: A1c is 5.4, continue ADA diet metformin and regular exercise (4) Cancer of left kidney: Comment: left lower lobe 3 cm mass , bx renal cell ca dxd 08/11, s/p cryoablation 10/12, stable on US 02/12, f/u [facility] oncology Dr. Deng, follow-up with urology Code(s): C64.2 - Malignant neoplasm of left kidney, except renal pelvis Category: Medical Plan: Follow-up with urology (5) Anemia: Comment: Acute symptomatic s/p 2 u RBC 11/2024, negative EGD and colonoscopy, established with Hematology, chronic anemia with normal iron and B12 Code(s): D64.9 - Anemia, unspecified Category: Medical Qualifiers: Anemia type: unspecified type Qualified Code(s): D64.9 - Anemia, unspecified Plan: NORMAL IRON STUDIES AND B12 LEVEL, Continue to monitor (6) Aortic stenosis: Comment: Echo 2021, ejection fraction 55-60% abnormal diastolic dysfunction mild aortic stenosis Code(s): I35.0 - Nonrheumatic aortic (valve) stenosis Category: Medical Plan: Follow-up with cardiology, repeat echocardiogram next year (7) CAD (coronary artery disease): Comment: s/p DEYANIRA to cx for NSTEMI 05/2019 cardiac cath RCA chronic occluded, cardiac cath 04/2024 : RCA occluded, patent LCx stent, LAD minimal luminal irregularities Code(s): I25.10 - Atherosclerotic heart disease of [place] coronary artery without angina pectoris Category: Medical Plan: Continue statin and beta alex (8) Lobular breast cancer: Comment: 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 Wilson at [facility] Code(s): C50.919 - Malignant neoplasm of unspecified site of unspecified female breast Category: Medical Plan: Follow-up with oncology (9) Annual physical exam: Code(s): Z00.00 - Encounter for general adult medical examination without abnormal findings Category: Medical Plan: Well-balanced diet regular physical activity discussed with the patient, follow-up in 6 months with a fasting labs before Orders: Orders Complete Blood Count Auto Diff 6 Months C64.2 - Malignant neoplasm of left kidney, except renal pelvis, D64.9 - Anemia, unspecified, E11.9 - Type 2 diabetes mellitus without complications, I10 - Essential (primary) hypertension, I48.0 - Paroxysmal atrial fibrillation Lipid Panel 6 Months C64.2 - Malignant neoplasm of left kidney, except renal pelvis, D64.9 - Anemia, unspecified, E11.9 - Type 2 diabetes mellitus without complications, I10 - Essential (primary) hypertension, I48.0 - Paroxysmal atrial fibrillation IRON PROFILE 6 Months C64.2 - Malignant neoplasm of left kidney, except renal pelvis, D64.9 - Anemia, unspecified, E11.9 - Type 2 diabetes mellitus without complications, I10 - Essential (primary) hypertension, I48.0 - Paroxysmal atrial fibrillation Comprehensive [place]. Panel Fast 6 Months C64.2 - Malignant neoplasm of left kidney, except renal pelvis, D64.9 - Anemia, unspecified, E11.9 - Type 2 diabetes mellitus without complications, I10 - Essential (primary) hypertension, I48.0 - Paroxysmal atrial fibrillation Hemoglobin A1c 6 Months C64.2 - Malignant neoplasm of left kidney, except renal pelvis, D64.9 - Anemia, unspecified, E11.9 - Type 2 diabetes mellitus without complications, I10 - Essential (primary) hypertension, I48.0 - Paroxysmal atrial fibrillation Microalbumin, Random (w Creat) 6 Months C64.2 - Malignant neoplasm of left kidney, except renal pelvis, D64.9 - Anemia, unspecified, E11.9 - Type 2 diabetes mellitus without complications, I10 - Essential (primary) hypertension, I48.0 - Paroxysmal atrial fibrillation Vitamin B12 and Folate 6 Months C64.2 - Malignant neoplasm of left kidney, except renal pelvis, D64.9 - Anemia, unspecified, E11.9 - Type 2 diabetes mellitus without complications, I10 - Essential (primary) hypertension, I48.0 - Paroxysmal atrial fibrillation Medications: New Eliquis (apixaban) 5 mg PO BID 180 tabs 3RF NS
[2025-05-08 08:24] VITALS: BP 124/74; PULSE 77; TEMP 36.6; O2SAT 96; BMI 28.9
== END 2025-05-08 09:26 | disposition home or self-care (01) ==
LOC: HO.HMCC 08:14
PROVIDERS: PCP Internal Medicine; Visit Provider Internal Medicine
DX: Z00.00 Encounter for general adult medical examination without abnormal findings (principal); I48.0 Paroxysmal atrial fibrillation; E11.9 Type 2 diabetes mellitus without complications; C64.2 Malignant neoplasm of left kidney, except renal pelvis; C50.919 Malignant neoplasm of unspecified site of unspecified female breast; I10 Essential (primary) hypertension; D64.9 Anemia, unspecified; I35.0 Nonrheumatic aortic (valve) stenosis; I25.10 Atherosclerotic heart disease of native coronary artery without angina pectoris

== ENCOUNTER → 2025-05-08 08:14 | Outpatient (BNVA) | payer MEDICARE, MEDICAID, SELFPAY | PROVIDERS: PCP Internal Medicine; Visit Provider Internal Medicine | DX: Z00.00 Encounter for general adult medical examination without abnormal findings (principal); I10 Essential (primary) hypertension; I48.0 Paroxysmal atrial fibrillation; E11.9 Type 2 diabetes mellitus without complications; C64.2 Malignant neoplasm of left kidney, except renal pelvis; D64.9 Anemia, unspecified; I35.0 Nonrheumatic aortic (valve) stenosis; I25.10 Atherosclerotic heart disease of native coronary artery without angina pectoris; C50.912 Malignant neoplasm of unspecified site of left female breast; Z79.899 Other long term (current) drug therapy | CPT/HCPCS: 99397 ==

== ENCOUNTER 2025-05-15 08:54 | Outpatient (REF) | payer MEDICARE, MEDICAID, SELFPAY ==
--- NOTE | ~2025-05-15 | MM_ITS ---
EXAMINATION: MM SCREENING DIGITAL BREAST TOMOSYNTHESIS, BILATERAL CLINICAL INFORMATION: Screening. Asymptomatic. COMPARISON: Mammography: Comparison is made with available priors TECHNIQUE: Digital breast mammography with tomosynthesis is performed in both the craniocaudal and mediolateral oblique views along with computer-aided detection (CAD). FINDINGS: There are scattered areas of fibroglandular density. Left breast Lumpectomy changes are stable. There are no significant masses, abnormal calcifications, or other abnormalities. MM/MM tomosynthesis screening BI IMPRESSION: No mammographic evidence of malignancy. ASSESSMENT: BI-RADS Category 2: Benign RECOMMENDATION: Routine annual mammography screening. 1 year F/U This examination should not preclude the clinical evaluation of a suspicious palpable abnormality. This patient's information was entered into a reminder system with a target due date for their next mammogram. Electronically signed by: Zaida Cortes DO 05/15/2025 02:56 PM [facility]
--- OUTSIDE RECORDS SUMMARY | 2025-05-15 09:01 | XMS_ITS ---
Author Organization [facility] Prior to 10/20/24 Address [address] [place] [address] Care Team Providers Care Farm Machine Tender Name Role Phone Traci Salinas MD Primary Care Provider [phone] Active Problems Problem Noted Date Diagnosed Date [...] on 08/03/2021 Coronary artery disease invo lving [place] coronary artery of [place] heart without angina pectoris 08/03/2021 Stented coronary [...] treatments are documented for this patient in [facility]. Treatments may have been administered in another system.
--- OUTSIDE RECORDS SUMMARY | 2025-05-15 09:01 | XMS_ITS | Clinical Summary ---
Author Organization [facility] Prior to 10/20/24 Address [address] [place] [address] Care Team Providers Care Supplier Specialist Name Role Phone Traci Salinas MD Primary [...] from 07/22/2021:Stage IIB(cT2, cN0, cM0, G3, ER-, [place]-, HER2-) - Signed by Sowmya Ackerman MD on 08/03/2021 Coronary artery disease invo lving [place] coronary artery of [place] heart without angina pectoris 08/03/2021 Stented coronary [...] age to complete this topic Care Teams Supplier Specialist Relationship Specialty Start Date End Date Traci Salinas MD [address] [place] [address] PCP - General Coiler Operator 07/31/21
== END 2025-05-15 08:55 | disposition home or self-care (01) ==
LOC: HO.MAMMO 08:54
PROVIDERS: PCP Internal Medicine; Visit Provider Internal Medicine
DX: Z12.31 Encounter for screening mammogram for malignant neoplasm of breast (principal)
CPT/HCPCS: 77063; 77067

== ENCOUNTER → 2025-05-15 09:15 | Outpatient (BNV) | payer MEDICARE, MEDICAID, SELFPAY | PROVIDERS: PCP Internal Medicine; Visit Provider Internal Medicine | DX: Z12.31 Encounter for screening mammogram for malignant neoplasm of breast (principal) | CPT/HCPCS: 77063; 77067 ==